=== PATIENT | female | born 1960 | race Caucasian/White ===

== ENCOUNTER → 2018-01-21 15:12 | Outpatient (CLI) | payer OTHER, SELFPAY | PROVIDERS: Family Provider Family Medicine; PCP Family Medicine; Visit Provider Family Medicine | DX: M85.852 Other specified disorders of bone density and structure, left thigh (principal); Z78.0 Asymptomatic menopausal state | CPT/HCPCS: 77080 ==

== ENCOUNTER 2018-12-29 08:15 | Outpatient (RCR) | payer OTHER, SELFPAY ==
--- NOTE | 2018-09-29 08:43 | PT.OIE ---
Current Diagnoses Stiffness of left hip, not elsewhere classified (09/29/18) Other bursitis of hip, left hip (09/29/18) Weakness (09/29/18) Past Medical History (Last Reviewed 06/25/18 @ 16:26 by Kelly Pabon MD) Hyperlipidemia (Chronic) TMJ dysfunction (Chronic) Colon polyps (Resolved 2010) Osteopenia (Resolved 01/21/18) Past Surgical History (Last Reviewed 06/25/18 @ 16:26 by Kelly Pabon MD) History of colonoscopy (Resolved 06/01/16) History of colonoscopy with polypectomy (Resolved 11/24/10) Status post dilation and curettage (Resolved 1978) Provider Visit Care Team Role Provider Type Kelly Pabon MD Attending Provider Physician Primary Care Provider Specialty: [facility] Address: [address] [place] [address] Email: [email or web address] Physical Therapy Initial Evaluation PT-OP-A Visit Information Start: 09/29/18 07:24 Freq: Status: Active Protocol: Document 09/29/18 07:29 [facility] (Rec: 09/29/18 08:15 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 (Rec: 09/29/18 08:15 [facility] [id number]) Current Condition History of Current Condition Onset Date fall Current Complaints L hip/thigh pain History of Current Condition Pt reports lat hip pain that comes and goes and sometimes catches in the morning and she can move her leg around to improve it. Started in fall/ winter. Reports she can feel it somtimes when walking/ running but doesn't really bother her. Pt reports in the beginning it was achey from hip to thigh and to sup knee. That doesn't happen as much. In the AM, its typically worse and gets better. Sometimes she gets catching when pulling leg up to put shoes on/off. No known cause d/t this. Pt has been swimming the past month instead of the last month. Less catching recently. Reports tenderness to touch. Prior Treatments and Tests none Treatment Goals Patient/Caregiver Goals Stop locking sensation PT-OP-C Subjective Start: 09/29/18 07:24 Freq: Status: Active Protocol: Document 09/29/18 07:29 [facility] (Rec: 09/29/18 08:15 [facility] [id number]) Patient Questionnaires Lower Extremity Functional Scale LEFS Score 79 OP-PT Pain Assessment Location R hip Pain Location Details R hip Intensity 7 Scale Used Numeric (1 - 10) Description- Other catching Frequency Intermittent Pain Duration seconds Radiating Location into thigh Other Pain Aggravating Factors lifting leg up/down, run/walk( sometimes feel it) Other Pain Alleviating Factors bend leg up/down PT-OP-F Manual Assessment Start: 09/29/18 07:24 Freq: Status: Active Protocol: Document 09/29/18 07:29 [facility] (Rec: 09/29/18 08:15 [facility] [id number]) Manual Assessments Soft Tissue Assessment Soft Tissue Mobility Assessment ITB & piriformis tight and tender. Greater trochanter tenderness Joint Mobility Assessment Joint Mobility Assessment equal iliac crests & greater trochanters PT-OP-L Special Tests Start: 09/29/18 07:24 Freq: Status: Active Protocol: Document 09/29/18 07:29 [facility] (Rec: 09/29/18 08:15 [facility] [id number]) Special Tests Hip Special Tests scour Test Results neg Slump Test Results neg SLR Test Results neg HS Test Results HS WNL Sushant Test Results mild tightness B obers Test Results mild tightness L PT-OP-M Strength Start: 09/29/18 07:24 Freq: Status: Active Protocol: Document 09/29/18 07:29 [facility] (Rec: 09/29/18 08:15 [facility] [id number]) Hip Strength Hip Manual Muscle Testing Left Flexion (L2) 5 Normal Extension (S1) 4 Good Abduction 4 Good Adduction 4+ Good+ External Rotation 5 Normal Internal Rotation 4 Good Comments pain with IR Right Flexion (L2) 5 Normal Extension (S1) 5 Normal Abduction 5 Normal Adduction 5 Normal External Rotation 5 Normal Internal Rotation 5 Normal Knee Strength Knee Manual Muscle Testing Right Flexion (S2) 5 Normal Extension (L3) 5 Normal Left Flexion (S2) 5 Normal Extension (L3) 5 Normal PT-OP-Q Treatments Start: 09/29/18 07:24 Freq: Status: Active Protocol: Document 09/29/18 07:29 [facility] (Rec: 09/29/18 08:15 [facility] [id number]) Therapeutic Exercises Supine Exercises rolling pin Supine Exercise Name ITB Side left iso hip flex Supine Exercise Name flex & diagonal Side bilateral Reps/Minutes 30 sec ITB stretch Supine Exercise Name w/towel Side left Reps/Minutes 30 sec sushant Supine Exercise Name stretch Side bilateral Reps/Minutes 30 sec piriformis Supine Exercise Name piriformis Side left Reps/Minutes 45 sec Standing Exercises quad Standing Exercise Name quad Side left Reps/Minutes 30 sec PT-OP-T Assessment and Plan Start: 09/29/18 07:24 Freq: Status: Active Protocol: Document 09/29/18 07:29 [facility] (Rec: 09/29/18 08:43 [facility] [id number]) Physical Therapy Assessment Rehab Potential Rehabilitation Potential Excellent Evaluation Complexity Number of Personal Factors/Comorbidities 1-2 Number of Body Systems Impaired 4 or More Clinical Presentation at Evaluation Stable Impairments Impairments Functional Activities Gait Pain Soft Tissue Mobility Strength Goals strength Short Term Goal (STG) Pt will be indep with HEP STG Duration 10/30/18 Assisted Goal (LTG) Pt will have 5/5 strength in BLEs allowing improvement in all daily activities. LTG Duration 11/29/18 pain Short Term Goal (STG) Pt will have no episodes of clicking for 2 weeks STG Duration 11/06/18 Broom Man Goal (LTG) Pt will report no pain/ discomfort in L hip with typical activities. LTG Duration 11/29/18 Assessment Summary Assessment Pt presents with L hip pain consistent with possible L hip bursititis & ITB tightness. She has mild flexibility limitations and dec core strength L>R. Pt is improving overall with symptoms, but would benefit from PT to dec catching and pain that occurs in hip and improve functional movement patterns for typical daily activities. Physical Therapy Plan Frequency and Duration Frequency of Treatment 1-2x/wk Duration of Treatment 2 months Plan of Care Start Date 09/29/18 Plan of Care End Date 11/29/18 Therapeutic Interventions Therapeutic Interventions Aquatic Therapy Balance Training Gait Training Home Exercise Program Joint Mobilizations Manual Therapy Patient/Caregiver Education Self-Care/Home Management Soft Tissue Mobilization Taping Therapeutic Activities Therapeutic Exercises Modalities Cold Pack/Ice Massage Electric Stimulation Hot Packs Ultrasound Next Visit Focus/Plan Next Note Type Treatment Note Next Visit Plan core activation, STM to glutes & ITB
--- NOTE | 2018-09-29 08:43 | PT.OPPOC ---
Current Diagnoses Stiffness of left hip, not elsewhere classified (09/29/18) Other bursitis of hip, left hip (09/29/18) Weakness (09/29/18) Provider Visit Care Team Role Provider Type Kelly Pabon MD Attending Provider Physician Primary Care Provider Specialty: [facility] Address: [address] [place] [address], [facility] Email: [email or web address] Plan Of Care PT-OP-T Assessment and Plan Start: 09/29/18 07:24 Freq: Status: Active Protocol: Document 09/29/18 07:29 [facility] (Rec: 09/29/18 08:43 [facility] [id number]) Physical Therapy Assessment Rehab Potential Rehabilitation Potential Excellent Evaluation Complexity Number of Personal Factors/Comorbidities 1-2 Number of Body Systems Impaired 4 or More Clinical Presentation at Evaluation Stable Impairments Impairments Functional Activities Gait Pain Soft Tissue Mobility Strength Goals strength Short Term Goal (STG) Pt will be indep with HEP STG Duration 10/30/18 Care Home Goal (LTG) Pt will have 5/5 strength in BLEs allowing improvement in all daily activities. LTG Duration 11/29/18 pain Short Term Goal (STG) Pt will have no episodes of clicking for 2 weeks STG Duration 11/06/18 Parking Lot Chauffeur Goal (LTG) Pt will report no pain/ discomfort in L hip with typical activities. LTG Duration 11/29/18 Assessment Summary Assessment Pt presents with L hip pain consistent with possible L hip bursititis & ITB tightness. She has mild flexibility limitations and dec core strength L>R. Pt is improving overall with symptoms, but would benefit from PT to dec catching and pain that occurs in hip and improve functional movement patterns for typical daily activities. Physical Therapy Plan Frequency and Duration Frequency of Treatment 1-2x/wk Duration of Treatment 2 months Plan of Care Start Date 09/29/18 Plan of Care End Date 11/29/18 Therapeutic Interventions Therapeutic Interventions Aquatic Therapy Balance Training Gait Training Home Exercise Program Joint Mobilizations Manual Therapy Patient/Caregiver Education Self-Care/Home Management Soft Tissue Mobilization Taping Therapeutic Activities Therapeutic Exercises Modalities Cold Pack/Ice Massage Electric Stimulation Hot Packs Ultrasound Next Visit Focus/Plan Next Note Type Treatment Note Next Visit Plan core activation, STM to glutes & ITB Plan of Care Dates Plan of Care Start Date 09/29/18 Plan of Care End Date 11/29/18 Please Sign and Return: I have reviewed this Plan of Care and certify that the skilled therapy services above are required to meet the patient?s needs. Physician Signature Date Printed Name and Credentials Clinical Instructor Signature Printed Name and Credentials
--- NOTE | 2018-10-03 14:09 | PT.OTN ---
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 Started in fall/ winter. Reports she can feel it somtimes when walking/ running but doesn't really bother her. Pt reports in the beginning it was achey from hip to thigh and to sup knee. That doesn't happen as much. In the AM, its typically worse and gets better. Sometimes she gets catching when pulling leg up to put shoes on/off. No known cause d/t this. Pt has been swimming the past month instead of the last month. Less catching recently. Reports tenderness to touch. Prior Treatments and Tests none Treatment Goals Patient/Caregiver Goals Stop locking sensation PT-OP-C Subjective Start: 09/29/18 07:24 Freq: Status: Active Protocol: Document 10/03/18 12:15 [facility] (Rec: 10/03/18 14:09 [facility] [id number]) OP-PT Subjective Patient Comments Patient Comments Pt reports compliance with stretches and exercises. Reports they made her sore in B hips. PT-OP-F Manual Assessment Start: 09/29/18 07:24 Freq: Status: Active Protocol: Document 09/29/18 07:29 [facility] (Rec: 09/29/18 08:15 [facility] [id number]) Manual Assessments Soft Tissue Assessment Soft Tissue Mobility Assessment ITB & piriformis tight and tender. Greater trochanter tenderness Joint Mobility Assessment Joint Mobility Assessment equal iliac crests & greater trochanters PT-OP-L Special Tests Start: 09/29/18 07:24 Freq: Status: Active Protocol: Document 09/29/18 07:29 [facility] (Rec: 09/29/18 08:15 [facility] [id number]) Special Tests Hip Special Tests scour Test Results neg Slump Test Results neg SLR Test Results neg HS Test Results HS WNL Sushant Test Results mild tightness B obers Test Results mild tightness L PT-OP-M Strength Start: 09/29/18 07:24 Freq: Status: Active Protocol: Document 09/29/18 07:29 [facility] (Rec: 09/29/18 08:15 [facility] [id number]) Hip Strength Hip Manual Muscle Testing Left Flexion (L2) 5 Normal Extension (S1) 4 Good Abduction 4 Good Adduction 4+ Good+ External Rotation 5 Normal Internal Rotation 4 Good Comments pain with IR Right Flexion (L2) 5 Normal Extension (S1) 5 Normal Abduction 5 Normal Adduction 5 Normal External Rotation 5 Normal Internal Rotation 5 Normal Knee Strength Knee Manual Muscle Testing Right Flexion (S2) 5 Normal Extension (L3) 5 Normal Left Flexion (S2) 5 Normal Extension (L3) 5 Normal PT-OP-Q Treatments Start: 09/29/18 07:24 Freq: Status: Active Protocol: Document 10/03/18 12:15 [facility] (Rec: 10/03/18 14:09 [facility] [id number]) Therapeutic Exercises Supine Exercises tennis ball Supine Exercise Name rolling out september Supine Exercise Name scissors Side bilateral Reps/Minutes 15 bridge w/march Supine Exercise Name bridge w/march Side bilateral Reps/Minutes 15 iso hip flex Supine Exercise Name flex & diagonal Side bilateral Reps/Minutes 30 sec ITB stretch Supine Exercise Name w/towel Side left Reps/Minutes 30 sec sushant Supine Exercise Name stretch Side bilateral Reps/Minutes 30 sec piriformis Supine Exercise Name piriformis Side left Reps/Minutes 45 sec Prone Exercises hip ER/IR Prone Exercise Name IR & ER Side left Equipment Used L1 Reps/Minutes 10 Manual Therapy Treatment Soft Tissue Mobilization piriformis Body Location piriformis Mobilization Type Rolling Intensity/Depth Moderate Joint Mobilizations innominate Joint innominate Direction FM fle hip Joint hip L Direction inf & hip on axis ER & IR FM PT-OP-T Assessment and Plan Start: 09/29/18 07:24 Freq: Status: Active Protocol: Document 10/03/18 12:15 [facility] (Rec: 10/03/18 14:09 [facility] [id number]) Physical Therapy Assessment Goals strength Short Term Goal (STG) Pt will be indep with HEP STG Duration 10/30/18 [facility] Goal (LTG) Pt will have 5/5 strength in BLEs allowing improvement in all daily activities. LTG Duration 11/29/18 pain Short Term Goal (STG) Pt will have no episodes of clicking for 2 weeks STG Duration 11/06/18 Unload Associate Goal (LTG) Pt will report no pain/ discomfort in L hip with typical activities. LTG Duration 11/29/18 Assessment Summary Assessment Pt able to do exercises with cueing. She had improved hip ROM with STM & mobilizations. Physical Therapy Plan Frequency and Duration Frequency of Treatment 1-2x/wk Duration of Treatment 2 months Plan of Care Start Date 09/29/18 Plan of Care End Date 11/29/18 Next Visit Focus/Plan Next Note Type Treatment Note Next Visit Plan ITB STM and advance hip strength
--- NOTE | 2018-10-09 09:49 | PT.OTN ---
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 Started in fall/ winter. Reports she can feel it somtimes when walking/ running but doesn't really bother her. Pt reports in the beginning it was achey from hip to thigh and to sup knee. That doesn't happen as much. In the AM, its typically worse and gets better. Sometimes she gets catching when pulling leg up to put shoes on/off. No known cause d/t this. Pt has been swimming the past month instead of the last month. Less catching recently. Reports tenderness to touch. Prior Treatments and Tests none Treatment Goals Patient/Caregiver Goals Stop locking sensation PT-OP-C Subjective Start: 09/29/18 07:24 Freq: Status: Active Protocol: Document 10/09/18 09:01 [facility] (Rec: 10/09/18 09:48 [facility] [id number]) OP-PT Subjective Patient Comments Patient Comments Pt reports 1 episode of catching in the shower in the past week PT-OP-F Manual Assessment Start: 09/29/18 07:24 Freq: Status: Active Protocol: Document 09/29/18 07:29 [facility] (Rec: 09/29/18 08:15 [facility] [id number]) Manual Assessments Soft Tissue Assessment Soft Tissue Mobility Assessment ITB & piriformis tight and tender. Greater trochanter tenderness Joint Mobility Assessment Joint Mobility Assessment equal iliac crests & greater trochanters PT-OP-L Special Tests Start: 09/29/18 07:24 Freq: Status: Active Protocol: Document 09/29/18 07:29 [facility] (Rec: 09/29/18 08:15 [facility] [id number]) Special Tests Hip Special Tests scour Test Results neg Slump Test Results neg SLR Test Results neg HS Test Results HS WNL Sushant Test Results mild tightness B obers Test Results mild tightness L PT-OP-M Strength Start: 09/29/18 07:24 Freq: Status: Active Protocol: Document 09/29/18 07:29 [facility] (Rec: 09/29/18 08:15 [facility] [id number]) Hip Strength Hip Manual Muscle Testing Left Flexion (L2) 5 Normal Extension (S1) 4 Good Abduction 4 Good Adduction 4+ Good+ External Rotation 5 Normal Internal Rotation 4 Good Comments pain with IR Right Flexion (L2) 5 Normal Extension (S1) 5 Normal Abduction 5 Normal Adduction 5 Normal External Rotation 5 Normal Internal Rotation 5 Normal Knee Strength Knee Manual Muscle Testing Right Flexion (S2) 5 Normal Extension (L3) 5 Normal Left Flexion (S2) 5 Normal Extension (L3) 5 Normal PT-OP-Q Treatments Start: 09/29/18 07:24 Freq: Status: Active Protocol: Document 10/09/18 09:01 [facility] (Rec: 10/09/18 09:48 [facility] [id number]) Therapeutic Exercises Prone Exercises hip ER/IR Prone Exercise Name IR & ER Side left Equipment Used L1 Reps/Minutes 10 Sidelying Exercises abd Sidelying Exercise Name vs wall Side left Reps/Minutes 10 Other Exercises quad hip ext Other Exercise Name hip ext Side bilateral Equipment Used no tband then L2 Reps/Minutes 10 ea Therapeutic Activity Therapeutic Activity sleeping Name sleeping position w/pillows & towels Comments supine & S/L Manual Therapy Treatment Soft Tissue Mobilization ITB Body Location ITB Mobilization Type Rolling Joint Mobilizations innominate Joint innominate Direction FM flex L hip Joint hip L Direction inf & hip on axis ER FM Comments w/neuro re edu in range PT-OP-T Assessment and Plan Start: 09/29/18 07:24 Freq: Status: Active Protocol: Document 10/09/18 09:01 [facility] (Rec: 10/09/18 09:48 [facility] [id number]) Physical Therapy Assessment Goals strength Short Term Goal (STG) Pt will be indep with HEP STG Duration 10/30/18 Detention Goal (LTG) Pt will have 5/5 strength in BLEs allowing improvement in all daily activities. LTG Duration 11/29/18 pain Short Term Goal (STG) Pt will have no episodes of clicking for 2 weeks STG Duration 11/06/18 Detention Goal (LTG) Pt will report no pain/ discomfort in L hip with typical activities. LTG Duration 11/29/18 Assessment Summary Assessment Improved hip gliding at start of session today which improved further with mobilization. Pt required cueing to maintain neutral pelvis with exercises today. Physical Therapy Plan Frequency and Duration Frequency of Treatment 1-2x/wk Duration of Treatment 2 months Plan of Care Start Date 09/29/18 Plan of Care End Date 11/29/18 Next Visit Focus/Plan Next Note Type Treatment Note Next Visit Plan ITB STM and advance hip strength
--- NOTE | 2018-10-21 14:56 | PT.OTN ---
Current Diagnoses Other bursitis of hip, left hip (10/21/18) Physical Therapy Treatment Note PT-OP-A Visit Information Start: 09/29/18 07:24 Freq: Status: Active Protocol: Document 10/21/18 13:51 [facility] (Rec: 10/21/18 14:55 [facility] [id number]) Out-Patient Physical Therapy Visit Information Visit Information Visit Type Treatment Note Visit Start Time 13:50 Visit Stop Time 14:30 Total Visit Minutes 40 Visit Number 4 Number of BINDING DYER Visits 0 PT-OP-B Current Condition Start: 09/29/18 07:24 Freq: Status: Active Protocol: Document 09/29/18 07:29 [facility] (Rec: 09/29/18 08:15 [facility] [id number]) Current Condition History of Current Condition Onset Date fall Current Complaints L hip/thigh pain History of Current Condition Pt reports lat hip pain that comes and goes and sometimes catches in the morning and she can move her leg around to improve it. Started in fall/ winter. Reports she can feel it somtimes when walking/ running but doesn't really bother her. Pt reports in the beginning it was achey from hip to thigh and to sup knee. That doesn't happen as much. In the AM, its typically worse and gets better. Sometimes she gets catching when pulling leg up to put shoes on/off. No known cause d/t this. Pt has been swimming the past month instead of the last month. Less catching recently. Reports tenderness to touch. Prior Treatments and Tests none Treatment Goals Patient/Caregiver Goals Stop locking sensation PT-OP-C Subjective Start: 09/29/18 07:24 Freq: Status: Active Protocol: Document 10/21/18 13:51 [facility] (Rec: 10/21/18 14:56 [facility] [id number]) OP-PT Subjective Patient Comments Patient Comments Pt did some exercises while away last week. Did not do IR/ ER d/t not wanting to lay on hotel floor. PT-OP-F Manual Assessment Start: 09/29/18 07:24 Freq: Status: Active Protocol: Document 09/29/18 07:29 [facility] (Rec: 09/29/18 08:15 [facility] [id number]) Manual Assessments Soft Tissue Assessment Soft Tissue Mobility Assessment ITB & piriformis tight and tender. Greater trochanter tenderness Joint Mobility Assessment Joint Mobility Assessment equal iliac crests & greater trochanters PT-OP-L Special Tests Start: 09/29/18 07:24 Freq: Status: Active Protocol: Document 09/29/18 07:29 [facility] (Rec: 09/29/18 08:15 [facility] [id number]) Special Tests Hip Special Tests scour Test Results neg Slump Test Results neg SLR Test Results neg HS Test Results HS WNL Sushant Test Results mild tightness B obers Test Results mild tightness L PT-OP-M Strength Start: 09/29/18 07:24 Freq: Status: Active Protocol: Document 09/29/18 07:29 [facility] (Rec: 09/29/18 08:15 [facility] [id number]) Hip Strength Hip Manual Muscle Testing Left Flexion (L2) 5 Normal Extension (S1) 4 Good Abduction 4 Good Adduction 4+ Good+ External Rotation 5 Normal Internal Rotation 4 Good Comments pain with IR Right Flexion (L2) 5 Normal Extension (S1) 5 Normal Abduction 5 Normal Adduction 5 Normal External Rotation 5 Normal Internal Rotation 5 Normal Knee Strength Knee Manual Muscle Testing Right Flexion (S2) 5 Normal Extension (L3) 5 Normal Left Flexion (S2) 5 Normal Extension (L3) 5 Normal PT-OP-Q Treatments Start: 09/29/18 07:24 Freq: Status: Active Protocol: Document 10/21/18 13:51 [facility] (Rec: 10/21/18 14:55 [facility] [id number]) Therapeutic Exercises Supine Exercises iso hip flex Supine Exercise Name flex & diagonal Side bilateral Reps/Minutes 30 sec Prone Exercises hip ER/IR Prone Exercise Name IR & ER Side left Equipment Used L1 Reps/Minutes 10 Sidelying Exercises abd Sidelying Exercise Name vs wall Side bilateral Reps/Minutes 15 Standing Exercises gait at wall Standing Exercise Name gait press Side bilateral Reps/Minutes 5 sec hold Other Exercises quad hip ext Other Exercise Name hip ext Side bilateral Equipment Used no tband then L2 Reps/Minutes 15 Manual Therapy Treatment Soft Tissue Mobilization TFL Body Location TFL Mobilization Type Rolling Sustained Pressure Intensity/Depth Moderate Body Position Sidelying ITB Body Location ITB Mobilization Type Rolling Intensity/Depth Moderate Body Position Sidelying Neuro Re-Education Treatment Other Activities core Details chop pattern for faciliation UE to LLE Comments into D1 flex PNF Details ant elevation/post dep Comments rhythmic initiation progressed to combination of isotonics in pelvis progressed to LEs PT-OP-T Assessment and Plan Start: 09/29/18 07:24 Freq: Status: Active Protocol: Document 10/21/18 13:51 [facility] (Rec: 10/21/18 14:55 [facility] [id number]) Physical Therapy Assessment Goals strength Short Term Goal (STG) Pt will be indep with HEP STG Duration 10/30/18 Dispute Specialist Goal (LTG) Pt will have 5/5 strength in BLEs allowing improvement in all daily activities. LTG Duration 11/29/18 pain Short Term Goal (STG) Pt will have no episodes of clicking for 2 weeks STG Duration 11/06/18 Skilled Nursing Goal (LTG) Pt will report no pain/ discomfort in L hip with typical activities. LTG Duration 11/29/18 Assessment Summary Assessment Pt had improved core response with chop pattern initiation and had difficulty with PNF post depression on L. Physical Therapy Plan Frequency and Duration Frequency of Treatment 1-2x/wk Duration of Treatment 2 months Plan of Care Start Date 09/29/18 Plan of Care End Date 11/29/18 Next Visit Focus/Plan Next Note Type Treatment Note Next Visit Plan ITB STM & PNF progression & core facilitation
--- NOTE | 2018-10-30 09:48 | PT.OTN ---
Current Diagnoses Other bursitis of hip, left hip (10/30/18) Physical Therapy Treatment Note PT-OP-A Visit Information Start: 09/29/18 07:24 Freq: Status: Active Protocol: Document 10/30/18 07:30 [facility] (Rec: 10/30/18 09:48 [facility] [id number]) Out-Patient Physical Therapy Visit Information Visit Information Visit Type Treatment Note Visit Start Time 07:30 Visit Stop Time 08:15 Total Visit Minutes 45 Visit Number 5 Number of AIR CONDITIONING SHEET METAL INSTALLER Visits 0 PT-OP-B Current Condition Start: 09/29/18 07:24 Freq: Status: Active Protocol: Document 09/29/18 07:29 [facility] (Rec: 09/29/18 08:15 [facility] [id number]) Current Condition History of Current Condition Onset Date fall Current Complaints L hip/thigh pain History of Current Condition Pt reports lat hip pain that comes and goes and sometimes catches in the morning and she can move her leg around to improve it. Started in fall/ winter. Reports she can feel it somtimes when walking/ running but doesn't really bother her. Pt reports in the beginning it was achey from hip to thigh and to sup knee. That doesn't happen as much. In the AM, its typically worse and gets better. Sometimes she gets catching when pulling leg up to put shoes on/off. No known cause d/t this. Pt has been swimming the past month instead of the last month. Less catching recently. Reports tenderness to touch. Prior Treatments and Tests none Treatment Goals Patient/Caregiver Goals Stop locking sensation PT-OP-C Subjective Start: 09/29/18 07:24 Freq: Status: Active Protocol: Document 10/30/18 07:30 [facility] (Rec: 10/30/18 09:48 [facility] [id number]) OP-PT Subjective Patient Comments Patient Comments Pt reports compliance with some exercises. Notes her leg felt weak walking out but within 5 min she felt good and had a really good weak with no pain or catches until yesterday when rai spicer. PT-OP-F Manual Assessment Start: 09/29/18 07:24 Freq: Status: Active Protocol: Document 09/29/18 07:29 [facility] (Rec: 09/29/18 08:15 [facility] [id number]) Manual Assessments Soft Tissue Assessment Soft Tissue Mobility Assessment ITB & piriformis tight and tender. Greater trochanter tenderness Joint Mobility Assessment Joint Mobility Assessment equal iliac crests & greater trochanters PT-OP-L Special Tests Start: 09/29/18 07:24 Freq: Status: Active Protocol: Document 09/29/18 07:29 [facility] (Rec: 09/29/18 08:15 [facility] [id number]) Special Tests Hip Special Tests scour Test Results neg Slump Test Results neg SLR Test Results neg HS Test Results HS WNL Sushant Test Results mild tightness B obers Test Results mild tightness L PT-OP-M Strength Start: 09/29/18 07:24 Freq: Status: Active Protocol: Document 09/29/18 07:29 [facility] (Rec: 09/29/18 08:15 [facility] [id number]) Hip Strength Hip Manual Muscle Testing Left Flexion (L2) 5 Normal Extension (S1) 4 Good Abduction 4 Good Adduction 4+ Good+ External Rotation 5 Normal Internal Rotation 4 Good Comments pain with IR Right Flexion (L2) 5 Normal Extension (S1) 5 Normal Abduction 5 Normal Adduction 5 Normal External Rotation 5 Normal Internal Rotation 5 Normal Knee Strength Knee Manual Muscle Testing Right Flexion (S2) 5 Normal Extension (L3) 5 Normal Left Flexion (S2) 5 Normal Extension (L3) 5 Normal PT-OP-Q Treatments Start: 09/29/18 07:24 Freq: Status: Active Protocol: Document 10/30/18 07:30 [facility] (Rec: 10/30/18 09:48 [facility] [id number]) Therapeutic Exercises Standing Exercises ITB stretch Standing Exercise Name at wall Side left Reps/Minutes 30 sec lunge Standing Exercise Name walking w/march Side bilateral Reps/Minutes 4x20ft sidestep squat Standing Exercise Name resisted Side bilateral Equipment Used lvl3 Reps/Minutes 20ft gait at wall Standing Exercise Name gait press Side bilateral Reps/Minutes 30 sec hold Comments w/hip hikes Manual Therapy Treatment Soft Tissue Mobilization TFL Body Location TFL Mobilization Type Rolling Sustained Pressure Intensity/Depth Moderate Body Position Sidelying ITB Body Location ITB Mobilization Type Rolling Intensity/Depth Moderate Body Position Sidelying PT-OP-T Assessment and Plan Start: 09/29/18 07:24 Freq: Status: Active Protocol: Document 10/30/18 07:30 [facility] (Rec: 10/30/18 09:48 [facility] [id number]) Physical Therapy Assessment Goals strength Short Term Goal (STG) Pt will be indep with HEP STG Duration 10/30/18 Popped Corn Oven Attendant Goal (LTG) Pt will have 5/5 strength in BLEs allowing improvement in all daily activities. LTG Duration 11/29/18 pain Short Term Goal (STG) Pt will have no episodes of clicking for 2 weeks STG Duration 11/06/18 Popped Corn Oven Attendant Goal (LTG) Pt will report no pain/ discomfort in L hip with typical activities. LTG Duration 11/29/18 Assessment Summary Assessment Pt required cueing for knee ext with hip ext during squats and lunges. Significant pelvic rotation with ambulation. Physical Therapy Plan Frequency and Duration Frequency of Treatment 1-2x/wk Duration of Treatment 2 months Plan of Care Start Date 09/29/18 Plan of Care End Date 11/29/18 Next Visit Focus/Plan Next Note Type Treatment Note Next Visit Plan ITB STM & PNF progression & core facilitation
--- NOTE | 2018-11-05 17:47 | PT.OTN ---
Current Diagnoses Other bursitis of hip, left hip (11/05/18) Physical Therapy Treatment Note PT-OP-A Visit Information Start: 09/29/18 07:24 Freq: Status: Active Protocol: Document 11/05/18 14:16 [facility] (Rec: 11/05/18 16:03 [facility] [id number]) Out-Patient Physical Therapy Visit Information Visit Information Visit Type Treatment Note Visit Start Time 15:25 Visit Stop Time 16:00 Total Visit Minutes 32 Visit Number 6 Number of DECORATING EQUIPMENT SETTER Visits 0 PT-OP-B Current Condition Start: 09/29/18 07:24 Freq: Status: Active Protocol: Document 09/29/18 07:29 [facility] (Rec: 09/29/18 08:15 [facility] [id number]) Current Condition History of Current Condition Onset Date fall Current Complaints L hip/thigh pain History of Current Condition Pt reports lat hip pain that comes and goes and sometimes catches in the morning and she can move her leg around to improve it. Started in fall/ winter. Reports she can feel it somtimes when walking/ running but doesn't really bother her. Pt reports in the beginning it was achey from hip to thigh and to sup knee. That doesn't happen as much. In the AM, its typically worse and gets better. Sometimes she gets catching when pulling leg up to put shoes on/off. No known cause d/t this. Pt has been swimming the past month instead of the last month. Less catching recently. Reports tenderness to touch. Prior Treatments and Tests none Treatment Goals Patient/Caregiver Goals Stop locking sensation PT-OP-C Subjective Start: 09/29/18 07:24 Freq: Status: Active Protocol: Document 11/05/18 14:16 [facility] (Rec: 11/05/18 17:45 [facility] [id number]) OP-PT Subjective Patient Comments Patient Comments Pt reports she has had only a couple instances of catching since last session. Her quads were very sore after last session. She did do lunges & squats PT-OP-F Manual Assessment Start: 09/29/18 07:24 Freq: Status: Active Protocol: Document 09/29/18 07:29 [facility] (Rec: 09/29/18 08:15 [facility] [id number]) Manual Assessments Soft Tissue Assessment Soft Tissue Mobility Assessment ITB & piriformis tight and tender. Greater trochanter tenderness Joint Mobility Assessment Joint Mobility Assessment equal iliac crests & greater trochanters PT-OP-L Special Tests Start: 09/29/18 07:24 Freq: Status: Active Protocol: Document 09/29/18 07:29 [facility] (Rec: 09/29/18 08:15 [facility] [id number]) Special Tests Hip Special Tests scour Test Results neg Slump Test Results neg SLR Test Results neg HS Test Results HS WNL Sushant Test Results mild tightness B obers Test Results mild tightness L PT-OP-M Strength Start: 09/29/18 07:24 Freq: Status: Active Protocol: Document 09/29/18 07:29 [facility] (Rec: 09/29/18 08:15 [facility] [id number]) Hip Strength Hip Manual Muscle Testing Left Flexion (L2) 5 Normal Extension (S1) 4 Good Abduction 4 Good Adduction 4+ Good+ External Rotation 5 Normal Internal Rotation 4 Good Comments pain with IR Right Flexion (L2) 5 Normal Extension (S1) 5 Normal Abduction 5 Normal Adduction 5 Normal External Rotation 5 Normal Internal Rotation 5 Normal Knee Strength Knee Manual Muscle Testing Right Flexion (S2) 5 Normal Extension (L3) 5 Normal Left Flexion (S2) 5 Normal Extension (L3) 5 Normal PT-OP-Q Treatments Start: 09/29/18 07:24 Freq: Status: Active Protocol: Document 11/05/18 14:16 [facility] (Rec: 11/05/18 17:45 [facility] [id number]) Therapeutic Exercises Standing Exercises lunge Standing Exercise Name walking w/march Side bilateral Reps/Minutes 4x20ft sidestep squat Standing Exercise Name resisted Side bilateral Equipment Used lvl3 Reps/Minutes 20ft gait at wall Standing Exercise Name gait press Side bilateral Reps/Minutes 30 sec hold Comments w/hip hikes Manual Therapy Treatment Soft Tissue Mobilization iliacus Body Location iliacus Mobilization Type Sustained Pressure TFL Body Location TFL Mobilization Type Rolling Sustained Pressure Intensity/Depth Moderate Body Position Sidelying ITB Body Location ITB Mobilization Type Rolling Intensity/Depth Moderate Body Position Sidelying PT-OP-T Assessment and Plan Start: 09/29/18 07:24 Freq: Status: Active Protocol: Document 11/05/18 14:16 [facility] (Rec: 11/05/18 16:03 [facility] [id number]) Physical Therapy Assessment Goals strength Short Term Goal (STG) Pt will be indep with HEP STG Duration 10/30/18 Configuration Manager Goal (LTG) Pt will have 5/5 strength in BLEs allowing improvement in all daily activities. LTG Duration 11/29/18 pain Short Term Goal (STG) Pt will have no episodes of clicking for 2 weeks STG Duration 11/06/18 Configuration Manager Goal (LTG) Pt will report no pain/ discomfort in L hip with typical activities. LTG Duration 11/29/18 Assessment Summary Assessment Pt is improving with her form with WB exercises, but did require min cueing for form & body position. She reports feeling tight after session but did a quad stretch and it relieved the soreness sensation in her hip. Physical Therapy Plan Frequency and Duration Frequency of Treatment 1-2x/wk Duration of Treatment 2 months Plan of Care Start Date 09/29/18 Plan of Care End Date 11/29/18 Next Visit Focus/Plan Next Note Type Treatment Note Next Visit Plan assess strength deficits
--- NOTE | 2018-11-19 17:40 | PT.OTN ---
Current Diagnoses Other bursitis of hip, left hip (11/19/18) Physical Therapy Treatment Note PT-OP-A Visit Information Start: 09/29/18 07:24 Freq: Status: Active Protocol: Document 11/05/18 14:16 [facility] (Rec: 11/05/18 16:03 [facility] [id number]) Out-Patient Physical Therapy Visit Information Visit Information Visit Type Treatment Note Visit Start Time 15:25 Visit Stop Time 16:00 Total Visit Minutes 32 Visit Number 6 Number of ELECTRONICS RESEARCH ENGINEER Visits 0 PT-OP-B Current Condition Start: 09/29/18 07:24 Freq: Status: Active Protocol: Document 09/29/18 07:29 [facility] (Rec: 09/29/18 08:15 [facility] [id number]) Current Condition History of Current Condition Onset Date fall Current Complaints L hip/thigh pain History of Current Condition Pt reports lat hip pain that comes and goes and sometimes catches in the morning and she can move her leg around to improve it. Started in fall/ winter. Reports she can feel it somtimes when walking/ running but doesn't really bother her. Pt reports in the beginning it was achey from hip to thigh and to sup knee. That doesn't happen as much. In the AM, its typically worse and gets better. Sometimes she gets catching when pulling leg up to put shoes on/off. No known cause d/t this. Pt has been swimming the past month instead of the last month. Less catching recently. Reports tenderness to touch. Prior Treatments and Tests none Treatment Goals Patient/Caregiver Goals Stop locking sensation PT-OP-C Subjective Start: 09/29/18 07:24 Freq: Status: Active Protocol: Document 11/05/18 14:16 [facility] (Rec: 11/05/18 17:45 [facility] [id number]) OP-PT Subjective Patient Comments Patient Comments Pt reports she has had only a couple instances of catching since last session. Her quads were very sore after last session. She did do lunges & squats PT-OP-F Manual Assessment Start: 09/29/18 07:24 Freq: Status: Active Protocol: Document 09/29/18 07:29 [facility] (Rec: 09/29/18 08:15 [facility] [id number]) Manual Assessments Soft Tissue Assessment Soft Tissue Mobility Assessment ITB & piriformis tight and tender. Greater trochanter tenderness Joint Mobility Assessment Joint Mobility Assessment equal iliac crests & greater trochanters PT-OP-L Special Tests Start: 09/29/18 07:24 Freq: Status: Active Protocol: Document 09/29/18 07:29 [facility] (Rec: 09/29/18 08:15 [facility] [id number]) Special Tests Hip Special Tests scour Test Results neg Slump Test Results neg SLR Test Results neg HS Test Results HS WNL Sushant Test Results mild tightness B obers Test Results mild tightness L PT-OP-M Strength Start: 09/29/18 07:24 Freq: Status: Active Protocol: Document 11/19/18 15:17 [facility] (Rec: 11/19/18 17:33 [facility] [id number]) Hip Strength Hip Manual Muscle Testing Left Flexion (L2) 4+ Good+ Extension (S1) 4+ Good+ Abduction 4+ Good+ External Rotation 4+ Good+ Internal Rotation 5 Normal PT-OP-Q Treatments Start: 09/29/18 07:24 Freq: Status: Active Protocol: Document 11/19/18 15:17 [facility] (Rec: 11/19/18 17:33 [facility] [id number]) Therapeutic Exercises Prone Exercises hip ext Prone Exercise Name alt Side bilateral Reps/Minutes 2x10 Sidelying Exercises abd Sidelying Exercise Name vs wall Side bilateral Reps/Minutes 15 Standing Exercises hip hinge Standing Exercise Name hip hinge Side bilateral Comments w/ruler on back squat Standing Exercise Name focus on form Reps/Minutes 30 sidestep squat Standing Exercise Name resisted Side bilateral Equipment Used lvl3 Reps/Minutes 20ft Manual Therapy Treatment Soft Tissue Mobilization TFL Body Location TFL Mobilization Type Rolling Sustained Pressure Intensity/Depth Moderate Body Position Sidelying ITB Body Location ITB Mobilization Type Rolling Intensity/Depth Moderate Body Position Sidelying PT-OP-T Assessment and Plan Start: 09/29/18 07:24 Freq: Status: Active Protocol: Document 11/19/18 15:17 [facility] (Rec: 11/19/18 17:33 [facility] [id number]) Physical Therapy Assessment Goals strength Short Term Goal (STG) Pt will be indep with HEP STG Duration achieved progressing as tolerated Skilled Nursing Goal (LTG) Pt will have 5/5 strength in BLEs allowing improvement in all daily activities. LTG Duration 12/30/18-good improvement w/ strength pain Short Term Goal (STG) Pt will have no episodes of clicking for 2 weeks STG Duration 01/06/19-improving Marble Cutter Goal (LTG) Pt will report no pain/ discomfort in L hip with typical activities. LTG Duration achieved Assessment Summary Assessment Pt cont to improve with strength but reuqired cueing for posture with squatting exercises. She had difficulty with maintaining neutral lumbar spine and cont to have core and LLE strength deficits . Physical Therapy Plan Frequency and Duration Frequency of Treatment 1-2x/wk Duration of Treatment 2 months Plan of Care Start Date 11/19/18 Plan of Care End Date 01/19/19 Therapeutic Interventions Therapeutic Interventions Aquatic Therapy Balance Training Gait Training Home Exercise Program Joint Mobilizations Manual Therapy Neuromuscular Re-education Self-Care/Home Management Soft Tissue Mobilization Taping Therapeutic Activities Therapeutic Exercises Modalities Cold Pack/Ice Massage Electric Stimulation Hot Packs Infrared Therapy Iontophoresis Traction- Mechanical Ultrasound Next Visit Focus/Plan Next Note Type Treatment Note Next Visit Plan advance core as tolerated
--- NOTE | 2018-11-19 17:40 | PT.OPPOC ---
Current Diagnoses Other bursitis of hip, left hip (11/19/18) Provider Visit Care Team Role Provider Type Kelly Pabon MD Attending Provider Physician Primary Care Provider Specialty: Family Practice Address: [address] [place] [address], [id number] Email: [email or web address] Plan Of Care PT-OP-T Assessment and Plan Start: 09/29/18 07:24 Freq: Status: Active Protocol: Document 11/19/18 15:17 [facility] (Rec: 11/19/18 17:33 [facility] [id number]) Physical Therapy Assessment Goals strength Short Term Goal (STG) Pt will be indep with HEP STG Duration achieved progressing as tolerated Harness Repairer Goal (LTG) Pt will have 5/5 strength in BLEs allowing improvement in all daily activities. LTG Duration 12/30/18-good improvement w/ strength pain Short Term Goal (STG) Pt will have no episodes of clicking for 2 weeks STG Duration 01/06/19-improving Harness Repairer Goal (LTG) Pt will report no pain/ discomfort in L hip with typical activities. LTG Duration achieved Assessment Summary Assessment Pt cont to improve with strength but reuqired cueing for posture with squatting exercises. She had difficulty with maintaining neutral lumbar spine and cont to have core and LLE strength deficits . Physical Therapy Plan Frequency and Duration Frequency of Treatment 1-2x/wk Duration of Treatment 2 months Plan of Care Start Date 11/19/18 Plan of Care End Date 01/19/19 Therapeutic Interventions Therapeutic Interventions Aquatic Therapy Balance Training Gait Training Home Exercise Program Joint Mobilizations Manual Therapy Neuromuscular Re-education Self-Care/Home Management Soft Tissue Mobilization Taping Therapeutic Activities Therapeutic Exercises Modalities Cold Pack/Ice Massage Electric Stimulation Hot Packs Infrared Therapy Iontophoresis Traction- Mechanical Ultrasound Next Visit Focus/Plan Next Note Type Treatment Note Next Visit Plan advance core as tolerated Plan of Care Dates Plan of Care Start Date 11/19/18 Plan of Care End Date 01/19/19 Please Sign and Return: I have reviewed this Plan of Care and certify that the skilled therapy services above are required to meet the patient?s needs. Physician Signature Date Printed Name and Credentials Clinical Instructor Signature Printed Name and Credentials
--- NOTE | 2018-12-17 19:08 | PT.OTN ---
Current Diagnoses Other bursitis of hip, left hip (12/17/18) Physical Therapy Treatment Note PT-OP-A Visit Information Start: 09/29/18 07:24 Freq: Status: Active Protocol: Document 12/17/18 19:03 [facility] (Rec: 12/17/18 19:08 [facility] [id number]) Out-Patient Physical Therapy Visit Information Visit Information Visit Type Treatment Note Visit Start Time 15:15 Visit Stop Time 16:00 Total Visit Minutes 45 Visit Number 7 Number of HOSTED SERVICES ANALYST Visits 0 PT-OP-B Current Condition Start: 09/29/18 07:24 Freq: Status: Active Protocol: Document 09/29/18 07:29 [facility] (Rec: 09/29/18 08:15 [facility] [id number]) Current Condition History of Current Condition Onset Date fall Current Complaints L hip/thigh pain History of Current Condition Pt reports lat hip pain that comes and goes and sometimes catches in the morning and she can move her leg around to improve it. Started in fall/ winter. Reports she can feel it somtimes when walking/ running but doesn't really bother her. Pt reports in the beginning it was achey from hip to thigh and to sup knee. That doesn't happen as much. In the AM, its typically worse and gets better. Sometimes she gets catching when pulling leg up to put shoes on/off. No known cause d/t this. Pt has been swimming the past month instead of the last month. Less catching recently. Reports tenderness to touch. Prior Treatments and Tests none Treatment Goals Patient/Caregiver Goals Stop locking sensation PT-OP-C Subjective Start: 09/29/18 07:24 Freq: Status: Active Protocol: Document 12/17/18 19:03 [facility] (Rec: 12/17/18 19:08 [facility] [id number]) OP-PT Subjective Patient Comments Patient Comments Pt reports only occasional catching PT-OP-F Manual Assessment Start: 09/29/18 07:24 Freq: Status: Active Protocol: Document 09/29/18 07:29 [facility] (Rec: 09/29/18 08:15 [facility] [id number]) Manual Assessments Soft Tissue Assessment Soft Tissue Mobility Assessment ITB & piriformis tight and tender. Greater trochanter tenderness Joint Mobility Assessment Joint Mobility Assessment equal iliac crests & greater trochanters PT-OP-L Special Tests Start: 09/29/18 07:24 Freq: Status: Active Protocol: Document 09/29/18 07:29 [facility] (Rec: 09/29/18 08:15 [facility] [id number]) Special Tests Hip Special Tests scour Test Results neg Slump Test Results neg SLR Test Results neg HS Test Results HS WNL Sushant Test Results mild tightness B obers Test Results mild tightness L PT-OP-M Strength Start: 09/29/18 07:24 Freq: Status: Active Protocol: Document 11/19/18 15:17 [facility] (Rec: 11/19/18 17:33 [facility] [id number]) Hip Strength Hip Manual Muscle Testing Left Flexion (L2) 4+ Good+ Extension (S1) 4+ Good+ Abduction 4+ Good+ External Rotation 4+ Good+ Internal Rotation 5 Normal PT-OP-Q Treatments Start: 09/29/18 07:24 Freq: Status: Active Protocol: Document 12/17/18 19:03 [facility] (Rec: 12/17/18 19:08 [facility] [id number]) Therapeutic Exercises Prone Exercises plank Prone Exercise Name on hand & feet & forearm & feet w/alt hip ext Side bilateral Reps/Minutes 15 ea Sidelying Exercises plank Sidelying Exercise Name side Side bilateral Reps/Minutes 30 sec ea Comments on knees then on feet Standing Exercises quad Standing Exercise Name stretch Side left Manual Therapy Treatment Soft Tissue Mobilization iliacus Body Location iliacus &inguinal ligament Mobilization Type Sustained Pressure ITB Body Location ITB Mobilization Type Rolling Intensity/Depth Moderate Body Position Sidelying piriformis Body Location piriformis Mobilization Type Sustained Pressure Body Position Prone Joint Mobilizations hip Joint hip Direction on axis ER FM PT-OP-T Assessment and Plan Start: 09/29/18 07:24 Freq: Status: Active Protocol: Document 12/17/18 19:03 [facility] (Rec: 12/17/18 19:08 [facility] [id number]) Physical Therapy Assessment Goals strength Short Term Goal (STG) Pt will be indep with HEP STG Duration achieved progressing as tolerated Index Clerk Goal (LTG) Pt will have 5/5 strength in BLEs allowing improvement in all daily activities. LTG Duration 12/30/18-good improvement w/ strength pain Short Term Goal (STG) Pt will have no episodes of clicking for 2 weeks STG Duration 01/06/19-improving Index Clerk Goal (LTG) Pt will report no pain/ discomfort in L hip with typical activities. LTG Duration achieved Assessment Summary Assessment Pt had difficulty with side plank exercise. She cont to improve with ability to do strengthening exercises. She had improved hip abd w/cueing for core activation. 1 catch occured when changing position but pain did not last. Physical Therapy Plan Frequency and Duration Frequency of Treatment 1-2x/wk Duration of Treatment 2 months Plan of Care Start Date 11/19/18 Plan of Care End Date 01/19/19 Next Visit Focus/Plan Next Note Type Discharge Summary Next Visit Plan advance core as tolerated; wrap up HEP
--- NOTE | 2018-12-29 08:58 | PT.OTN ---
Current Diagnoses Other bursitis of hip, left hip (12/29/18) Physical Therapy Treatment Note PT-OP-A Visit Information Start: 09/29/18 07:24 Freq: Status: Active Protocol: Document 12/29/18 08:15 [facility] (Rec: 12/29/18 08:57 [facility] [id number]) Out-Patient Physical Therapy Visit Information Visit Information Visit Type Discharge Summary Visit Start Time 08:15 Visit Stop Time 08:55 Total Visit Minutes 40 Visit Number 8 Number of BROTH SETTER Visits 0 PT-OP-B Current Condition Start: 09/29/18 07:24 Freq: Status: Active Protocol: Document 09/29/18 07:29 [facility] (Rec: 09/29/18 08:15 [facility] [id number]) Current Condition History of Current Condition Onset Date fall Current Complaints L hip/thigh pain History of Current Condition Pt reports lat hip pain that comes and goes and sometimes catches in the morning and she can move her leg around to improve it. Started in fall/ winter. Reports she can feel it somtimes when walking/ running but doesn't really bother her. Pt reports in the beginning it was achey from hip to thigh and to sup knee. That doesn't happen as much. In the AM, its typically worse and gets better. Sometimes she gets catching when pulling leg up to put shoes on/off. No known cause d/t this. Pt has been swimming the past month instead of the last month. Less catching recently. Reports tenderness to touch. Prior Treatments and Tests none Treatment Goals Patient/Caregiver Goals Stop locking sensation PT-OP-C Subjective Start: 09/29/18 07:24 Freq: Status: Active Protocol: Document 12/29/18 08:15 [facility] (Rec: 12/29/18 08:57 [facility] [id number]) OP-PT Subjective Patient Comments Patient Comments Pt feels good with dc today PT-OP-F Manual Assessment Start: 09/29/18 07:24 Freq: Status: Active Protocol: Document 09/29/18 07:29 [facility] (Rec: 09/29/18 08:15 [facility] [id number]) Manual Assessments Soft Tissue Assessment Soft Tissue Mobility Assessment ITB & piriformis tight and tender. Greater trochanter tenderness Joint Mobility Assessment Joint Mobility Assessment equal iliac crests & greater trochanters PT-OP-L Special Tests Start: 09/29/18 07:24 Freq: Status: Active Protocol: Document 09/29/18 07:29 [facility] (Rec: 09/29/18 08:15 [facility] [id number]) Special Tests Hip Special Tests scour Test Results neg Slump Test Results neg SLR Test Results neg HS Test Results HS WNL Sushant Test Results mild tightness B obers Test Results mild tightness L PT-OP-M Strength Start: 09/29/18 07:24 Freq: Status: Active Protocol: Document 12/29/18 08:15 [facility] (Rec: 12/29/18 08:57 [facility] [id number]) Hip Strength Hip Manual Muscle Testing Left Flexion (L2) 4+ Good+ Extension (S1) 5 Normal Abduction 4+ Good+ Adduction 5 Normal External Rotation 5 Normal Internal Rotation 5 Normal Right Flexion (L2) 4+ Good+ Extension (S1) 5 Normal Abduction 5 Normal Adduction 5 Normal External Rotation 5 Normal Internal Rotation 5 Normal PT-OP-Q Treatments Start: 09/29/18 07:24 Freq: Status: Active Protocol: Document 12/29/18 08:15 [facility] (Rec: 12/29/18 08:57 [facility] [id number]) Therapeutic Exercises Supine Exercises march Supine Exercise Name dying bug Side bilateral Reps/Minutes 15 iso hip flex Supine Exercise Name flex &diagnoal Side bilateral Reps/Minutes 45sec ea Prone Exercises plank Prone Exercise Name on hand & feet & forearm & feet w/alt hip ext Side bilateral Reps/Minutes 15 ea & 30 sec hold Sidelying Exercises plank Sidelying Exercise Name side Side bilateral Reps/Minutes 30 sec ea abd Sidelying Exercise Name vs wall Side left Reps/Minutes 15 Standing Exercises sidestep squat Standing Exercise Name resisted Side bilateral Equipment Used lvl3 Reps/Minutes 20ft Manual Therapy Treatment Soft Tissue Mobilization TFL Body Location TFL Mobilization Type Rolling Sustained Pressure Intensity/Depth Moderate Body Position Sidelying ITB Body Location ITB Mobilization Type Rolling Intensity/Depth Moderate Body Position Sidelying PT-OP-T Assessment and Plan Start: 09/29/18 07:24 Freq: Status: Active Protocol: Document 12/29/18 08:15 [facility] (Rec: 12/29/18 08:57 [facility] [id number]) Physical Therapy Assessment Goals strength Short Term Goal (STG) Pt will be indep with HEP STG Duration achieved progressing as tolerated Chcf Goal (LTG) Pt will have 5/5 strength in BLEs allowing improvement in all daily activities. LTG Duration 12/30/18-good improvement w/ strength pain Short Term Goal (STG) Pt will have no episodes of clicking for 2 weeks STG Duration 01/06/19-improving Chcf Goal (LTG) Pt will report no pain/ discomfort in L hip with typical activities. LTG Duration achieved Assessment Summary Assessment Pt has limited episodes of clicking and is able to relieve the sensation by stretching. She has improved with posture, strength and actvitiy tolerance with PT. She is cont with HEP to address cont mm slight weaknesses. Physical Therapy Plan Discharge Physical Therapy Discharge Reasons Plateau in Progress
--- NOTE | 2018-12-29 08:58 | PT.OPDS ---
Current Diagnoses Other bursitis of hip, left hip (12/29/18) Provider Visit Care Team Role Provider Type Kelly Pabon MD Attending Provider Physician Primary Care Provider Specialty: Family Practice Address: [address] [place] [address], [facility] Email: [email or web address] Visit Number Visit Number 8 Discharge Summary PT-OP-B Current Condition Start: 09/29/18 07:24 Freq: Status: Active Protocol: Document 09/29/18 07:29 [facility] (Rec: 09/29/18 08:15 [facility] [id number]) Current Condition History of Current Condition Onset Date fall Current Complaints L hip/thigh pain History of Current Condition Pt reports lat hip pain that comes and goes and sometimes catches in the morning and she can move her leg around to improve it. Started in fall/ winter. Reports she can feel it somtimes when walking/ running but doesn't really bother her. Pt reports in the beginning it was achey from hip to thigh and to sup knee. That doesn't happen as much. In the AM, its typically worse and gets better. Sometimes she gets catching when pulling leg up to put shoes on/off. No known cause d/t this. Pt has been swimming the past month instead of the last month. Less catching recently. Reports tenderness to touch. Prior Treatments and Tests none Treatment Goals Patient/Caregiver Goals Stop locking sensation PT-OP-C Subjective Start: 09/29/18 07:24 Freq: Status: Active Protocol: Document 12/29/18 08:15 [facility] (Rec: 12/29/18 08:57 [facility] [id number]) OP-PT Subjective Patient Comments Patient Comments Pt feels good with dc today PT-OP-F Manual Assessment Start: 09/29/18 07:24 Freq: Status: Active Protocol: Document 09/29/18 07:29 [facility] (Rec: 09/29/18 08:15 [facility] [id number]) Manual Assessments Soft Tissue Assessment Soft Tissue Mobility Assessment ITB & piriformis tight and tender. Greater trochanter tenderness Joint Mobility Assessment Joint Mobility Assessment equal iliac crests & greater trochanters PT-OP-L Special Tests Start: 09/29/18 07:24 Freq: Status: Active Protocol: Document 09/29/18 07:29 [facility] (Rec: 09/29/18 08:15 [facility] [id number]) Special Tests Hip Special Tests scour Test Results neg Slump Test Results neg SLR Test Results neg HS Test Results HS WNL Sushant Test Results mild tightness B obers Test Results mild tightness L PT-OP-M Strength Start: 09/29/18 07:24 Freq: Status: Active Protocol: Document 12/29/18 08:15 [facility] (Rec: 12/29/18 08:57 [facility] [id number]) Hip Strength Hip Manual Muscle Testing Left Flexion (L2) 4+ Good+ Extension (S1) 5 Normal Abduction 4+ Good+ Adduction 5 Normal External Rotation 5 Normal Internal Rotation 5 Normal Right Flexion (L2) 4+ Good+ Extension (S1) 5 Normal Abduction 5 Normal Adduction 5 Normal External Rotation 5 Normal Internal Rotation 5 Normal PT-OP-T Assessment and Plan Start: 09/29/18 07:24 Freq: Status: Active Protocol: Document 12/29/18 08:15 [facility] (Rec: 12/29/18 08:57 [facility] [id number]) Physical Therapy Assessment Goals strength Short Term Goal (STG) Pt will be indep with HEP STG Duration achieved progressing as tolerated Sap Business Intelligence Consultant Goal (LTG) Pt will have 5/5 strength in BLEs allowing improvement in all daily activities. LTG Duration 12/30/18-good improvement w/ strength pain Short Term Goal (STG) Pt will have no episodes of clicking for 2 weeks STG Duration 01/06/19-improving Senior Living Goal (LTG) Pt will report no pain/ discomfort in L hip with typical activities. LTG Duration achieved Assessment Summary Assessment Pt has limited episodes of clicking and is able to relieve the sensation by stretching. She has improved with posture, strength and actvitiy tolerance with PT. She is cont with HEP to address cont mm slight weaknesses. Physical Therapy Plan Discharge Physical Therapy Discharge Reasons Plateau in Progress
== END 2019-01-16 12:06 | disposition home or self-care (01) ==
LOC: PHYS 08:15
PROVIDERS: PCP Family Medicine; Visit Provider Family Medicine
DX: M70.72 Other bursitis of hip, left hip (principal)
CPT/HCPCS: 97110; 97112; 97140; 97161

== ENCOUNTER → 2019-01-07 07:58 | Outpatient (CLI) | payer OTHER, SELFPAY ==
[2019-01-07 09:24] LABS: Cholesterol 250 mg/dL (140-199); Glucose 94 mg/dL (70-100); HDL Cholesterol 97 mg/dL (40-60); LDL Cholesterol Calculated 134 mg/dL (<100); Triglycerides 93 mg/dL (35-150)
== END ==
PROVIDERS: PCP Family Medicine; Visit Provider Family Medicine
DX: Z13.220 Encounter for screening for lipoid disorders (principal); Z13.1 Encounter for screening for diabetes mellitus
CPT/HCPCS: 36415; 80061; 82947

== ENCOUNTER → 2020-10-21 12:27 | Outpatient (CLI) | payer OTHER, SELFPAY ==
[2020-10-21] MEDS: COVID-19 VACC #1, MRNA(MOD) 100 MCG/0.5 ML VIAL IM (12:31)
== END ==
PROVIDERS: PCP Family Medicine; Visit Provider Internal Medicine
DX: Z23 Encounter for immunization (principal)
CPT/HCPCS: 0011A; 91301

== ENCOUNTER → 2020-11-23 12:04 | Outpatient (CLI) | payer OTHER, SELFPAY ==
[2020-11-23] MEDS: COVID-19 VACC #2, MRNA(MOD) 100 MCG/0.5 ML VIAL IM (12:13)
== END ==
PROVIDERS: PCP Family Medicine; Visit Provider Internal Medicine
DX: Z23 Encounter for immunization (principal)
CPT/HCPCS: 0012A; 91301

== ENCOUNTER → 2020-12-09 08:11 | Outpatient (CLI) | payer OTHER, SELFPAY ==
[2020-12-09 09:41] LABS: Cholesterol 255 mg/dL (140-199); Glucose 98 mg/dL (80-110); HDL Cholesterol 95 mg/dL (40-60); LDL Cholesterol Calculated 145 mg/dL (<100); Triglycerides 74 mg/dL (35-150)
== END ==
PROVIDERS: PCP Family Medicine; Referring Provider Family Medicine; Visit Provider Family Medicine
DX: Z13.1 Encounter for screening for diabetes mellitus (principal); Z13.220 Encounter for screening for lipoid disorders
CPT/HCPCS: 36415; 80061; 82947

== ENCOUNTER → 2022-03-08 08:02 | Outpatient (CLI) | payer OTHER, SELFPAY ==
--- NOTE | 2022-03-08 08:04 | DI.RAD.S_ITS ---
PROCEDURE: XR CHEST 2V INDICATIONS: chest pain upper left side TECHNIQUE: 2 views of the chest were acquired. COMPARISON: [facility], , CHEST 2 VIEW, 07/30/2008, 16:06. FINDINGS: Surgical changes and devices: None. Lungs and pleura: Lungs are clear. No pleural effusions or pneumothorax. Mediastinum: Mediastinal contours are unchanged. Heart size is normal. Bones and chest wall: No suspicious bony abnormalities. Soft tissues appear unremarkable. IMPRESSION: No acute cardiopulmonary abnormality. Dictated by: Charly Vivar M.D. on 03/08/2022 at 9:16 Approved by: Charly Vivar M.D. on 03/08/2022 at 9:17
[2022-03-08 09:18] LABS: Add Manual Diff / Slide Review NO; Basophils Absolute Auto 0 /uL (0-100); Basophils Percent Auto 1.2 % (0-2); Eosinophils Absolute Auto 100 /uL (0-450); Eosinophils Percent Auto 2.3 % (2-4); Hematocrit 41.8 % (36-46); Hemoglobin 14.4 g/dL (12.0-16.0); Lymphocytes Absolute Auto 1300 /uL (1100-4500); Lymphocytes Percent Auto 34.5 % (25-40); Mean Corpuscular HGB Conc 34.5 % (30-36); Mean Corpuscular Volume 95.6 fL (80-100); Monocytes Absolute Auto 300 /uL (0-900); Monocytes Percent Auto 7.4 % (3-14); Neutrophils Absolute Auto 2000 /uL (1500-7000); Neutrophils Percent Auto 54.6 % (50-75); Platelet Count 289 X10^3/uL (150-400); Red Blood Cell Count 4.37 X10^6/uL (4.0-5.2); Red Cell Distribution Width 13.5 % (11.6-14.8); White Blood Cell Count 3.7 X10^3/uL (4.5-11.0)
[2022-03-08 09:41] LABS: Alanine Aminotransferase 15 IU/L (<35); Albumin 4.1 g/dL (3.5-5.0); Albumin Globulin Ratio 1.6 (1.0-2.8); Alkaline Phosphatase 62 U/L (38-126); Aspartate Aminotransferase 21 IU/L (14-36); Bilirubin Total 0.5 mg/dL (0.2-1.3); Blood Urea Nitrogen 13 mg/dL (7-17); Calcium 9.3 mg/dL (8.4-10.2); Carbon Dioxide 28 mmol/L (22-32); Chloride 102 mmol/L (98-107); Cholesterol 230 mg/dL (140-199); Estimated Glomerular Filt Rate > 60 mL/min (>60); Globulin 2.5 g/dL (1.7-4.1); Glucose 97 mg/dL (80-110); HDL Cholesterol 82 mg/dL (40-60); HEMOLYSIS < 15 (0-50); LDL Cholesterol Calculated 133 mg/dL (<100); Potassium 4.4 mmol/L (3.4-5.1); Sodium 137 mmol/L (137-145); Total Protein 6.6 g/dL (6.3-8.2); Triglycerides 77 mg/dL (35-150)
[2022-03-08 10:10] LABS: TSH w/ Reflex to FT4 2.56 uIU/mL (0.47-4.68)
== END ==
PROVIDERS: PCP Family Medicine; Referring Provider Physician Assistant; Visit Provider Physician Assistant
DX: R07.9 Chest pain, unspecified (principal); E78.5 Hyperlipidemia, unspecified
CPT/HCPCS: 36415; 71046; 80053; 80061; 84443; 85025

== ENCOUNTER 2022-07-25 13:45 | Outpatient (RCR) | payer OTHER, SELFPAY ==
--- NOTE | 2022-03-13 19:25 | PT.OIE ---
Current Diagnoses Radiculopathy, site unspecified (03/13/22) Low back pain, unspecified (03/13/22) Past Medical History (Last Reviewed 03/27/19 @ 18:24 by Virgil Barber MD) Colon polyps (2010) Hyperlipidemia Osteopenia (01/21/18) TMJ dysfunction Past Surgical History (Last Reviewed 03/27/19 @ 18:24 by Virgil Barber MD) History of colonoscopy (06/01/16) History of colonoscopy with polypectomy (11/24/10) Status post dilation and curettage (1978) Visit Care Team Role Provider Type Kelly Pabon MD Attending Provider Physician Primary Care Provider Referring Provider Specialty: [facility] Address: [address] [place] [address], [facility] Email: [email or web address] Physical Therapy Initial Evaluation PT-OP-A Visit Information Start: 03/12/22 17:44 Freq: Status: Active Protocol: Document 03/13/22 15:21 [facility] (Rec: 03/13/22 16:05 [facility] [id number]) Out-Patient Physical Therapy Visit Information Visit Information Visit Type Initial Evaluation Visit Start Time 15:21 Visit Stop Time 16:03 Total Visit Minutes 42 Visit Number 1 Number of REVENUE RESEARCH ANALYST Visits 0 PT-OP-B Current Condition Start: 03/12/22 17:44 Freq: Status: Active Protocol: Document 03/13/22 15:21 [facility] (Rec: 03/13/22 16:05 [facility] [id number]) Current Condition History of Current Condition Onset Date September Current Complaints L med knee pain, L back to post leg History of Current Condition In September, L knee started bothering her while running. Had to wait til January to see MD . When got in with MD, she started to have L SI/ buttock pain and it goes down post thigh and into calf. She has some mild tingling in calf and and dorsal aspect of toes 2-4 . Pain is pretty much every day. It bothers her when bending, squatting, sitting on soft surfaces, running. She can walk without pain. Treatment Goals Patient/Caregiver Goals be able to go downhill w/o pain, be able to return to running (5-7 miles a day on sat/sun) PT-OP-C Subjective Start: 03/12/22 17:44 Freq: Status: Active Protocol: Document 03/13/22 15:21 [facility] (Rec: 03/13/22 16:05 [facility] [id number]) Patient Questionnaires Oswestry Low Back Index Oswestry Score 650 OP-PT Pain Assessment Location R hip Pain Location Details SI region, buttocks & down post leg Scale Used 10; 03/31 Description Aching Description- Other nerve Frequency Constant Pain Duration after aggrevated-can improve w /stretches w/in 10-15 min Variations/Patterns tingling in toes, tingling in calf Pain Aggravating Factors Sitting,Bending Other Pain Aggravating Factors squat Other Pain Alleviating Factors stretching or moving, lay on couch and knees over leg rest PT-OP-D Balance Start: 03/12/22 17:44 Freq: Status: Active Protocol: Document 03/13/22 15:21 [facility] (Rec: 03/13/22 16:05 [facility] [id number]) Balance Tests Single Limb Standing Single Limb- Right >30 sec Single Limb- Left >30 sec PT-OP-F Manual Assessment Start: 03/12/22 17:44 Freq: Status: Active Protocol: Document 03/13/22 15:21 [facility] (Rec: 03/13/22 16:05 [facility] [id number]) Manual Assessments Soft Tissue Assessment Soft Tissue Mobility Assessment tightness L ITB, HS, calf, adductors,glutes L jt line med tenderness Joint Mobility Assessment Joint Mobility Assessment minor elvation of L pelvis. equal greater trochanter PT-OP-G Mobility & Gait Start: 03/12/22 17:44 Freq: Status: Active Protocol: Document 03/13/22 15:21 [facility] (Rec: 03/13/22 16:05 [facility] [id number]) OP Gait Assessment Comments Gait Comments dec push off B, ext at lumbar spine PT-OP-J Posture/Palpation/Skin Start: 03/12/22 17:44 Freq: Status: Active Protocol: Document 03/13/22 15:21 [facility] (Rec: 03/13/22 16:05 [facility] [id number]) Posture Evaluation Martínez Postural Classification System Martínez Postural Classifications Posterior/Posterior Vertebral Compression Test 2 Lumbar Protective Mechanism Left AP 3 Lumbar Protective Mechanism Right AP 1 Lumbar Protective Mechanism Left PA 3 Lumbar Protective Mechanism Right PA 3 PT-OP-K Range of Motion Start: 03/12/22 17:44 Freq: Status: Active Protocol: Document 03/13/22 15:21 [facility] (Rec: 03/13/22 16:05 [facility] [id number]) Hip Goniometric Range of Motion Hip Right Active Flexion w/Knee Flexed 119 Abduction 30 Left Active Flexion w/Knee Flexed 120 Abduction 29 Comments discomfort w/flex PT-OP-L Special Tests Start: 03/12/22 17:44 Freq: Status: Active Protocol: Document 03/13/22 15:21 [facility] (Rec: 03/13/22 16:05 [facility] [id number]) Special Tests Hip Special Tests Slump Test Results positive L SLR Test Results positive B for pain on L side Sushant Test Results positive B for tightness RF, iliacus & TFL L>R obers Test Results positive L Knee Special Tests Joshua Test Test Results neg ligamentous Test Results neg L Thessaly Test 20 Degrees Test Results neg L PT-OP-M Strength Start: 03/12/22 17:44 Freq: Status: Active Protocol: Document 03/13/22 15:21 [facility] (Rec: 03/13/22 16:05 [facility] [id number]) Hip Strength Hip Manual Muscle Testing Right Flexion (L2) 4+ Good+ Extension (S1) 4+ Good+ Abduction 5 Normal Adduction 4+ Good+ External Rotation 5 Normal Internal Rotation 5 Normal Comments pain in L SI w/MMT Left Flexion (L2) 4+ Good+ Extension (S1) 4- Good- Abduction 4- Good- Adduction 4+ Good+ External Rotation 4+ Good+ Internal Rotation 4+ Good+ Knee Strength Knee Manual Muscle Testing Right Flexion (S2) 5 Normal Left Flexion (S2) 4 Good Extension (L3) 5 Normal Ankle/Foot Strength Ankle and Foot Manual Muscle Testing Right Dorsiflexion (L4) 5 Normal Plantarflexion (S1) 5 Normal Left Dorsiflexion (L4) 5 Normal Plantarflexion (S1) 5 Normal Comments 20 heel raises B PT-OP-T Assessment and Plan Start: 03/12/22 17:44 Freq: Status: Active Protocol: Document 03/13/22 15:21 [facility] (Rec: 03/13/22 16:05 [facility] [id number]) Physical Therapy Assessment Rehab Potential Rehabilitation Potential Good Evaluation Complexity Number of Personal Factors/Comorbidities 3 or More Number of Body Systems Impaired 4 or More Clinical Presentation at Evaluation Evolving Impairments Impairments Activity Tolerance,Balance, Functional Activities, Functional Mobility,Gait,Pain, Posture,ROM,Soft Tissue Mobility,Strength Goals sitting Rn Primary Care Goal (LTG) pt will be able to sit on any surface w/o inc pain LTG Duration 06/13 VCT Retirement Goal (LTG) Pt will score at least 4/5 to show improved postural stabiltiy. LTG Duration 06/13/22 strengt Short Term Goal (STG) Pt will be indep w/HEP STG Duration 05/05/22 Rn Primary Care Goal (LTG) Pt will score at least 4/5 on LPM and 5/5 on BLE MMT to show improved stabiltiy to dec pain in LE and knee LTG Duration 06/13 activities Short Term Goal (STG) Pt will be able to walk downhill during hikes w/o pain STG Duration 04/22/22 Rn Primary Care Goal (LTG) Pt will be able to return to running on the weekends w/o hip, leg or knee pain. LTG Duration 06/13/22 Assessment Summary Assessment Pt presents w/left buttocks pain w/post leg pain down to calf w/occ tingling in calf and dorsal aspect of the foot. She has mild SI asymmetry and L sacral rotation along w/ tightness in glutes which likely is creating some of this pain. Pt was encouraged to keep moving during her upcoming flight and bring a tennis ball for self release. She would benefit from skilled PT to wrok on posture, hip and core stability, mobility and decreasing pain. Physical Therapy Plan Frequency and Duration Frequency of Treatment 1-2x/wk Duration of Treatment 3 months Plan of Care Start Date 03/13/22 Plan of Care End Date 06/13/22 Therapeutic Interventions Therapeutic Interventions Aquatic Therapy,Balance Training,Gait Training,Home Exercise Program,Joint Mobilizations,Manual Therapy, Neuromuscular Re-education, Patient/Caregiver Education, Self-Care/Home Management,Soft Tissue Mobilization,Taping, Therapeutic Activities, Therapeutic Exercises Modalities Cold Pack/Ice Massage,Electric Stimulation,Hot Packs, Infrared Therapy,Traction- Mechanical,Ultrasound Next Visit Focus/Plan Next Note Type Treatment Note Next Visit Plan piriformis stretching, core stability, manual to hip and ITB, hip on axis and inf mobs
--- NOTE | 2022-03-13 19:25 | PT.OPPOC ---
Physical, Occupational & Speech Therapy At [facility] Current Diagnoses Radiculopathy, site unspecified (03/13/22) Low back pain, unspecified (03/13/22) Visit Care Team Role Provider Type Kelly Pabon MD Attending Provider Physician Primary Care Provider Referring Provider Specialty: Family Practice Address: [address] [place] [address], [place], [place], [facility] Email: [email or web address] Plan Of Care PT-OP-T Assessment and Plan Start: 03/12/22 17:44 Freq: Status: Active Protocol: Document 03/13/22 15:21 [facility] (Rec: 03/13/22 16:05 [facility] [id number]) Physical Therapy Assessment Rehab Potential Rehabilitation Potential Good Evaluation Complexity Number of Personal Factors/Comorbidities 3 or More Number of Body Systems Impaired 4 or More Clinical Presentation at Evaluation Evolving Impairments Impairments Activity Tolerance,Balance, Functional Activities, Functional Mobility,Gait,Pain, Posture,ROM,Soft Tissue Mobility,Strength Goals sitting [facility] Goal (LTG) pt will be able to sit on any surface w/o inc pain LTG Duration 06/13 VCT Jd Edwards Goal (LTG) Pt will score at least 4/5 to show improved postural stabiltiy. LTG Duration 06/13/22 strengt Short Term Goal (STG) Pt will be indep w/HEP STG Duration 05/05/22 [facility] Goal (LTG) Pt will score at least 4/5 on LPM and 5/5 on BLE MMT to show improved stabiltiy to dec pain in LE and knee LTG Duration 06/13 activities Short Term Goal (STG) Pt will be able to walk downhill during hikes w/o pain STG Duration 04/22/22 Jd Edwards Goal (LTG) Pt will be able to return to running on the weekends w/o hip, leg or knee pain. LTG Duration 06/13/22 Assessment Summary Assessment Pt presents w/left buttocks pain w/post leg pain down to calf w/occ tingling in calf and dorsal aspect of the foot. She has mild SI asymmetry and L sacral rotation along w/ tightness in glutes which likely is creating some of this pain. Pt was encouraged to keep moving during her upcoming flight and bring a tennis ball for self release. She would benefit from skilled PT to wrok on posture, hip and core stability, mobility and decreasing pain. Physical Therapy Plan Frequency and Duration Frequency of Treatment 1-2x/wk Duration of Treatment 3 months Plan of Care Start Date 03/13/22 Plan of Care End Date 06/13/22 Therapeutic Interventions Therapeutic Interventions Aquatic Therapy,Balance Training,Gait Training,Home Exercise Program,Joint Mobilizations,Manual Therapy, Neuromuscular Re-education, Patient/Caregiver Education, Self-Care/Home Management,Soft Tissue Mobilization,Taping, Therapeutic Activities, Therapeutic Exercises Modalities Cold Pack/Ice Massage,Electric Stimulation,Hot Packs, Infrared Therapy,Traction- Mechanical,Ultrasound Next Visit Focus/Plan Next Note Type Treatment Note Next Visit Plan piriformis stretching, core stability, manual to hip and ITB, hip on axis and inf mobs Plan of Care Dates Plan of Care Start Date 03/13/22 Plan of Care End Date 06/13/22 Electronically Signed by: Kelly Sheffield, PT 03/13/22 0725 If you are in agreement with this Plan of Care, please return a signed and dated copy. I have reviewed this Plan of Care and certify that the skilled therapy services above are required to meet the patient?s needs. Physician Signature Date Printed Name and Credentials Clinical Instructor Signature Printed Name and Credentials
--- NOTE | 2022-04-03 16:04 | PT.OTN ---
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 Had to wait til January to see MD . When got in with MD, she started to have L SI/ buttock pain and it goes down post thigh and into calf. She has some mild tingling in calf and and dorsal aspect of toes 2-4 . Pain is pretty much every day. It bothers her when bending, squatting, sitting on soft surfaces, running. She can walk without pain. Treatment Goals Patient/Caregiver Goals be able to go downhill w/o pain, be able to return to running (5-7 miles a day on sat/sun) PT-OP-C Subjective Start: 03/12/22 17:44 Freq: Status: Active Protocol: Document 04/03/22 15:15 [facility] (Rec: 04/03/22 16:04 [facility] [id number]) OP-PT Subjective Patient Comments Patient Comments Pt reports it wasn't as bad when she was away but still painful. Carrying her backpack was sometimes painful. Sore after sleeping today PT-OP-D Balance Start: 03/12/22 17:44 Freq: Status: Active Protocol: Document 03/13/22 15:21 [facility] (Rec: 03/13/22 16:05 [facility] [id number]) Balance Tests Single Limb Standing Single Limb- Right >30 sec Single Limb- Left >30 sec PT-OP-F Manual Assessment Start: 03/12/22 17:44 Freq: Status: Active Protocol: Document 03/13/22 15:21 [facility] (Rec: 03/13/22 16:05 [facility] [id number]) Manual Assessments Soft Tissue Assessment Soft Tissue Mobility Assessment tightness L ITB, HS, calf, adductors,glutes L jt line med tenderness Joint Mobility Assessment Joint Mobility Assessment minor elvation of L pelvis. equal greater trochanter PT-OP-G Mobility & Gait Start: 03/12/22 17:44 Freq: Status: Active Protocol: Document 03/13/22 15:21 [facility] (Rec: 03/13/22 16:05 [facility] [id number]) OP Gait Assessment Comments Gait Comments dec push off B, ext at lumbar spine PT-OP-J Posture/Palpation/Skin Start: 03/12/22 17:44 Freq: Status: Active Protocol: Document 03/13/22 15:21 [facility] (Rec: 03/13/22 16:05 [facility] [id number]) Posture Evaluation [facility] Postural Classification System [facility] Postural Classifications Posterior/Posterior Vertebral Compression Test 2 Lumbar Protective Mechanism Left AP 3 Lumbar Protective Mechanism Right AP 1 Lumbar Protective Mechanism Left PA 3 Lumbar Protective Mechanism Right PA 3 PT-OP-K Range of Motion Start: 03/12/22 17:44 Freq: Status: Active Protocol: Document 03/13/22 15:21 [facility] (Rec: 03/13/22 16:05 [facility] [id number]) Hip Goniometric Range of Motion Hip Right Active Flexion w/Knee Flexed 119 Abduction 30 Left Active Flexion w/Knee Flexed 120 Abduction 29 Comments discomfort w/flex PT-OP-L Special Tests Start: 03/12/22 17:44 Freq: Status: Active Protocol: Document 03/13/22 15:21 [facility] (Rec: 03/13/22 16:05 [facility] [id number]) Special Tests Hip Special Tests Slump Test Results positive L SLR Test Results positive B for pain on L side Sushant Test Results positive B for tightness RF, iliacus & TFL L>R obers Test Results positive L Knee Special Tests Joshua Test Test Results neg ligamentous Test Results neg L Thessaly Test 20 Degrees Test Results neg L PT-OP-M Strength Start: 03/12/22 17:44 Freq: Status: Active Protocol: Document 03/13/22 15:21 [facility] (Rec: 03/13/22 16:05 [facility] [id number]) Hip Strength Hip Manual Muscle Testing Right Flexion (L2) 4+ Good+ Extension (S1) 4+ Good+ Abduction 5 Normal Adduction 4+ Good+ External Rotation 5 Normal Internal Rotation 5 Normal Comments pain in L SI w/MMT Left Flexion (L2) 4+ Good+ Extension (S1) 4- Good- Abduction 4- Good- Adduction 4+ Good+ External Rotation 4+ Good+ Internal Rotation 4+ Good+ Knee Strength Knee Manual Muscle Testing Right Flexion (S2) 5 Normal Left Flexion (S2) 4 Good Extension (L3) 5 Normal Ankle/Foot Strength Ankle and Foot Manual Muscle Testing Right Dorsiflexion (L4) 5 Normal Plantarflexion (S1) 5 Normal Left Dorsiflexion (L4) 5 Normal Plantarflexion (S1) 5 Normal Comments 20 heel raises B PT-OP-Q Treatments Start: 03/12/22 17:44 Freq: Status: Active Protocol: Document 04/03/22 15:15 [facility] (Rec: 04/03/22 16:04 [facility] [id number]) Therapeutic Exercises Supine Exercises bridge Supine Exercise Name core engagement Side bilateral Reps/Minutes 15 Comments stared w/PT facilitation traction stretch Supine Exercise Name 1. piriformis 2 figure 4 3. active HS w/active DF Side bilateral Reps/Minutes 1&2 .30 sec ea 3. 8 sec x5 Sidelying Exercises abd Side bilateral Reps/Minutes 10 Manual Therapy Treatment Soft Tissue Mobilization piriformis Body Location L Mobilization Type Sustained Pressure Intensity/Depth Moderate Body Position Prone Comments w/hip IR/ER Joint Mobilizations innominate Direction L caudal and ER FM & flex FM sacrum Direction uPA L FM hip Direction on axis ER & Inf mobs PT-OP-T Assessment and Plan Start: 03/12/22 17:44 Freq: Status: Active Protocol: Document 04/03/22 15:15 [facility] (Rec: 04/03/22 16:04 [facility] [id number]) Physical Therapy Assessment Goals sitting Director Of Field Sales Goal (LTG) pt will be able to sit on any surface w/o inc pain LTG Duration 06/13 VCT Intermediate Goal (LTG) Pt will score at least 4/5 to show improved postural stabiltiy. LTG Duration 06/13/22 strengt Short Term Goal (STG) Pt will be indep w/HEP STG Duration 05/05/22 Director Of Field Sales Goal (LTG) Pt will score at least 4/5 on LPM and 5/5 on BLE MMT to show improved stabiltiy to dec pain in LE and knee LTG Duration 06/13 activities Short Term Goal (STG) Pt will be able to walk downhill during hikes w/o pain STG Duration 04/22/22 Intermediate Goal (LTG) Pt will be able to return to running on the weekends w/o hip, leg or knee pain. LTG Duration 06/13/22 Assessment Summary Assessment Pt had improved ER and flex w/ less paina fter manual treatment. She did well with exercsies w/o pain. Physical Therapy Plan Frequency and Duration Frequency of Treatment 1-2x/wk Duration of Treatment 3 months Plan of Care Start Date 03/13/22 Plan of Care End Date 06/13/22 Next Visit Focus/Plan Next Note Type Treatment Note Next Visit Plan review exercises, manual to hip and ITB and innominate, progress core
--- NOTE | 2022-04-05 15:18 | PT.OTN ---
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 Had to wait til January to see MD . When got in with MD, she started to have L SI/ buttock pain and it goes down post thigh and into calf. She has some mild tingling in calf and and dorsal aspect of toes 2-4 . Pain is pretty much every day. It bothers her when bending, squatting, sitting on soft surfaces, running. She can walk without pain. Treatment Goals Patient/Caregiver Goals be able to go downhill w/o pain, be able to return to running (5-7 miles a day on sat/sun) PT-OP-C Subjective Start: 03/12/22 17:44 Freq: Status: Active Protocol: Document 04/05/22 12:56 [facility] (Rec: 04/05/22 15:18 [facility] [id number]) OP-PT Subjective Patient Comments Patient Comments Pt reports Ams are the worse PT-OP-D Balance Start: 03/12/22 17:44 Freq: Status: Active Protocol: Document 03/13/22 15:21 [facility] (Rec: 03/13/22 16:05 [facility] [id number]) Balance Tests Single Limb Standing Single Limb- Right >30 sec Single Limb- Left >30 sec PT-OP-F Manual Assessment Start: 03/12/22 17:44 Freq: Status: Active Protocol: Document 03/13/22 15:21 [facility] (Rec: 03/13/22 16:05 [facility] [id number]) Manual Assessments Soft Tissue Assessment Soft Tissue Mobility Assessment tightness L ITB, HS, calf, adductors,glutes L jt line med tenderness Joint Mobility Assessment Joint Mobility Assessment minor elvation of L pelvis. equal greater trochanter PT-OP-G Mobility & Gait Start: 03/12/22 17:44 Freq: Status: Active Protocol: Document 03/13/22 15:21 [facility] (Rec: 03/13/22 16:05 [facility] [id number]) OP Gait Assessment Comments Gait Comments dec push off B, ext at lumbar spine PT-OP-J Posture/Palpation/Skin Start: 03/12/22 17:44 Freq: Status: Active Protocol: Document 03/13/22 15:21 [facility] (Rec: 03/13/22 16:05 [facility] [id number]) Posture Evaluation Martínez Postural Classification System Martínez Postural Classifications Posterior/Posterior Vertebral Compression Test 2 Lumbar Protective Mechanism Left AP 3 Lumbar Protective Mechanism Right AP 1 Lumbar Protective Mechanism Left PA 3 Lumbar Protective Mechanism Right PA 3 PT-OP-K Range of Motion Start: 03/12/22 17:44 Freq: Status: Active Protocol: Document 03/13/22 15:21 [facility] (Rec: 03/13/22 16:05 [facility] [id number]) Hip Goniometric Range of Motion Hip Right Active Flexion w/Knee Flexed 119 Abduction 30 Left Active Flexion w/Knee Flexed 120 Abduction 29 Comments discomfort w/flex PT-OP-L Special Tests Start: 03/12/22 17:44 Freq: Status: Active Protocol: Document 03/13/22 15:21 [facility] (Rec: 03/13/22 16:05 [facility] [id number]) Special Tests Hip Special Tests Slump Test Results positive L SLR Test Results positive B for pain on L side Sushant Test Results positive B for tightness RF, iliacus & TFL L>R obers Test Results positive L Knee Special Tests Joshua Test Test Results neg ligamentous Test Results neg L Thessaly Test 20 Degrees Test Results neg L PT-OP-M Strength Start: 03/12/22 17:44 Freq: Status: Active Protocol: Document 03/13/22 15:21 [facility] (Rec: 03/13/22 16:05 [facility] [id number]) Hip Strength Hip Manual Muscle Testing Right Flexion (L2) 4+ Good+ Extension (S1) 4+ Good+ Abduction 5 Normal Adduction 4+ Good+ External Rotation 5 Normal Internal Rotation 5 Normal Comments pain in L SI w/MMT Left Flexion (L2) 4+ Good+ Extension (S1) 4- Good- Abduction 4- Good- Adduction 4+ Good+ External Rotation 4+ Good+ Internal Rotation 4+ Good+ Knee Strength Knee Manual Muscle Testing Right Flexion (S2) 5 Normal Left Flexion (S2) 4 Good Extension (L3) 5 Normal Ankle/Foot Strength Ankle and Foot Manual Muscle Testing Right Dorsiflexion (L4) 5 Normal Plantarflexion (S1) 5 Normal Left Dorsiflexion (L4) 5 Normal Plantarflexion (S1) 5 Normal Comments 20 heel raises B PT-OP-Q Treatments Start: 03/12/22 17:44 Freq: Status: Active Protocol: Document 04/05/22 12:56 [facility] (Rec: 04/05/22 15:18 [facility] [id number]) Therapeutic Exercises Supine Exercises bridge Supine Exercise Name core engagement Side bilateral Reps/Minutes 5 sec x8 Comments arms across chest stretch Supine Exercise Name 1. piriformis 2 figure 4 3. active HS w/active DF Side bilateral Reps/Minutes 1&2 .30 sec ea 3. 10 sec x2 Sidelying Exercises abd Side bilateral Reps/Minutes 10 Standing Exercises squat Standing Exercise Name over chair Side bilateral Reps/Minutes 15 Comments cues for set up of position Therapeutic Activity Therapeutic Activity sleep Comments s/l and supine sleep prop wpillows and towels Manual Therapy Treatment Soft Tissue Mobilization QL Body Location L QL/ES Mobilization Type Rolling,Strumming Intensity/Depth Moderate Body Position Sidelying Comments w/ant elevation/post dep piriformis Body Location L piriformis and glutes Mobilization Type Sustained Pressure Intensity/Depth Moderate Body Position Sidelying Joint Mobilizations lumbar Comments transverse R L3-5FM gapping L4-5 FM innominate Direction L abd FM hip Direction abd FM L PT-OP-T Assessment and Plan Start: 03/12/22 17:44 Freq: Status: Active Protocol: Document 04/05/22 12:56 [facility] (Rec: 04/05/22 15:18 [facility] [id number]) Physical Therapy Assessment Goals sitting Assisted Goal (LTG) pt will be able to sit on any surface w/o inc pain LTG Duration 06/13 VCT Assisted Goal (LTG) Pt will score at least 4/5 to show improved postural stabiltiy. LTG Duration 06/13/22 strengt Short Term Goal (STG) Pt will be indep w/HEP STG Duration 05/05/22 Assisted Goal (LTG) Pt will score at least 4/5 on LPM and 5/5 on BLE MMT to show improved stabiltiy to dec pain in LE and knee LTG Duration 06/13 activities Short Term Goal (STG) Pt will be able to walk downhill during hikes w/o pain STG Duration 04/22/22 Superintendent System Operation Goal (LTG) Pt will be able to return to running on the weekends w/o hip, leg or knee pain. LTG Duration 06/13/22 Assessment Summary Assessment Pt had improved pelvis motion w/manual treatment. She is doing better overall w/ movement. Exercises went well and pt required very little cues. Physical Therapy Plan Frequency and Duration Frequency of Treatment 1-2x/wk Duration of Treatment 3 months Plan of Care Start Date 03/13/22 Plan of Care End Date 06/13/22 Next Visit Focus/Plan Next Note Type Treatment Note Next Visit Plan advance hip strength and core stabiltiy, work on manual for oimproved hip and innominate mobility
--- NOTE | 2022-04-13 16:15 | PT.OTN ---
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 (Rec: 03/13/22 16:05 [facility] [id number]) Current Condition History of Current Condition Onset Date September Current Complaints L med knee pain, L back to post leg History of Current Condition In September, L knee started bothering her while running. Had to wait til January to see MD . When got in with MD, she started to have L SI/ buttock pain and it goes down post thigh and into calf. She has some mild tingling in calf and and dorsal aspect of toes 2-4 . Pain is pretty much every day. It bothers her when bending, squatting, sitting on soft surfaces, running. She can walk without pain. Treatment Goals Patient/Caregiver Goals be able to go downhill w/o pain, be able to return to running (5-7 miles a day on sat/sun) PT-OP-C Subjective Start: 03/12/22 17:44 Freq: Status: Active Protocol: Document 04/13/22 15:32 [facility] (Rec: 04/13/22 16:15 [facility] [id number]) OP-PT Subjective Patient Comments Patient Comments Pt reports she has been doing exercises daily except for sidelying. Pt reports she used pillow under leg and after a few days tingling started and was more intensse. So did not use it last night and will test to see if symptoms change . She was on vacation and started working again last Saturday. She sometimes gets a pinky horse in the left thigh with bridge ex. PT-OP-D Balance Start: 03/12/22 17:44 Freq: Status: Active Protocol: Document 03/13/22 15:21 [facility] (Rec: 03/13/22 16:05 [facility] [id number]) Balance Tests Single Limb Standing Single Limb- Right >30 sec Single Limb- Left >30 sec PT-OP-F Manual Assessment Start: 03/12/22 17:44 Freq: Status: Active Protocol: Document 03/13/22 15:21 [facility] (Rec: 03/13/22 16:05 [facility] [id number]) Manual Assessments Soft Tissue Assessment Soft Tissue Mobility Assessment tightness L ITB, HS, calf, adductors,glutes L jt line med tenderness Joint Mobility Assessment Joint Mobility Assessment minor elvation of L pelvis. equal greater trochanter PT-OP-G Mobility & Gait Start: 03/12/22 17:44 Freq: Status: Active Protocol: Document 03/13/22 15:21 [facility] (Rec: 03/13/22 16:05 [facility] [id number]) OP Gait Assessment Comments Gait Comments dec push off B, ext at lumbar spine PT-OP-J Posture/Palpation/Skin Start: 03/12/22 17:44 Freq: Status: Active Protocol: Document 07/25/22 13:49 [facility] (Rec: 07/25/22 15:21 [facility] [id number]) Posture Evaluation Martínez Postural Classification System Vertebral Compression Test 3 Lumbar Protective Mechanism Left AP 3 Lumbar Protective Mechanism Right AP 4 Lumbar Protective Mechanism Left PA 3 Lumbar Protective Mechanism Right PA 3 PT-OP-K Range of Motion Start: 03/12/22 17:44 Freq: Status: Active Protocol: Document 03/13/22 15:21 [facility] (Rec: 03/13/22 16:05 [facility] [id number]) Hip Goniometric Range of Motion Hip Right Active Flexion w/Knee Flexed 119 Abduction 30 Left Active Flexion w/Knee Flexed 120 Abduction 29 Comments discomfort w/flex PT-OP-L Special Tests Start: 03/12/22 17:44 Freq: Status: Active Protocol: Document 03/13/22 15:21 [facility] (Rec: 03/13/22 16:05 [facility] [id number]) Special Tests Hip Special Tests Slump Test Results positive L SLR Test Results positive B for pain on L side Sushant Test Results positive B for tightness RF, iliacus & TFL L>R obers Test Results positive L Knee Special Tests Joshua Test Test Results neg ligamentous Test Results neg L Thessaly Test 20 Degrees Test Results neg L PT-OP-M Strength Start: 03/12/22 17:44 Freq: Status: Active Protocol: Document 07/25/22 13:49 [facility] (Rec: 07/25/22 15:21 [facility] [id number]) Hip Strength Hip Manual Muscle Testing Right Flexion (L2) 5 Normal Extension (S1) 4+ Good+ Abduction 5 Normal Adduction 5 Normal External Rotation 5 Normal Internal Rotation 5 Normal Left Flexion (L2) 4+ Good+ Extension (S1) 4+ Good+ Abduction 4 Good Adduction 5 Normal External Rotation 5 Normal Internal Rotation 5 Normal Comments pain abd & ext Knee Strength Knee Manual Muscle Testing Right Flexion (S2) 5 Normal Extension (L3) 5 Normal Left Flexion (S2) 4+ Good+ Extension (L3) 5 Normal Comments mild pain w/flex Ankle/Foot Strength Ankle and Foot Manual Muscle Testing Right Dorsiflexion (L4) 5 Normal Plantarflexion (S1) 5 Normal Left Dorsiflexion (L4) 5 Normal Plantarflexion (S1) 5 Normal Comments 20 heel raises B PT-OP-Q Treatments Start: 03/12/22 17:44 Freq: Status: Active Protocol: Document 04/13/22 15:32 [facility] (Rec: 04/13/22 16:15 [facility] [id number]) Therapeutic Exercises Supine Exercises bridge Supine Exercise Name core engagement Side bilateral Reps/Minutes 5 sec x8 Comments arms across chest stretch Supine Exercise Name 1. piriformis 2 figure 4 3. active HS w/active DF Side bilateral Reps/Minutes 1&2 .30 sec ea 3. 10 sec x2 Sidelying Exercises abd Side bilateral Reps/Minutes 10 Standing Exercises squat Standing Exercise Name over mat table Side bilateral Reps/Minutes 15 Comments cues for keeping knee behind toes Manual Therapy Treatment Soft Tissue Mobilization QL Body Location L QL/ES Mobilization Type Rolling,Strumming Intensity/Depth Moderate Body Position Sidelying Comments w/ant elevation/post dep piriformis Body Location L piriformis and glutes Mobilization Type Sustained Pressure Intensity/Depth Moderate Body Position Sidelying Self-Care/Home Management Treatment Education Patient Education Home Exercise Program,Pain Management Other Education Educated pt on self-STM w/ tennis ball to hip - good feedback response. Added to HEP: self-STM at wall with tennis ball for glute, piriformis and ITB - HO given. PT-OP-T Assessment and Plan Start: 03/12/22 17:44 Freq: Status: Active Protocol: Document 04/13/22 15:32 [facility] (Rec: 09/24/22 07:14 [facility] [id number]) Physical Therapy Assessment Goals sitting Correction Goal (LTG) pt will be able to sit on any surface w/o inc pain LTG Duration 06/13 VCT Correction Goal (LTG) Pt will score at least 4/5 to show improved postural stabiltiy. LTG Duration 06/13/22 strengt Short Term Goal (STG) Pt will be indep w/HEP STG Duration 05/05/22 Administrative Officer Goal (LTG) Pt will score at least 4/5 on LPM and 5/5 on BLE MMT to show improved stabiltiy to dec pain in LE and knee LTG Duration 06/13 activities Short Term Goal (STG) Pt will be able to walk downhill during hikes w/o pain STG Duration 04/22/22 Correction Goal (LTG) Pt will be able to return to running on the weekends w/o hip, leg or knee pain. LTG Duration 06/13/22 Assessment Summary Assessment Pt requires cues for low back hyperextension. Palpable tightness improves with manual therapy - good feedback response. ducated pt on self- STM w/ tennis ball to hip - good feedback response. Added to HEP: self-STM at wall with tennis ball for glute, piriformis and ITB - HO given. Physical Therapy Plan Frequency and Duration Frequency of Treatment 1-2x/wk Plan of Care Start Date 03/13/22 Plan of Care End Date 06/13/22 Therapeutic Interventions Therapeutic Interventions Aquatic Therapy,Balance Training,Gait Training,Home Exercise Program,Joint Mobilizations,Manual Therapy, Neuromuscular Re-education, Patient/Caregiver Education, Self-Care/Home Management,Soft Tissue Mobilization,Taping, Therapeutic Activities, Therapeutic Exercises Modalities Cold Pack/Ice Massage,Electric Stimulation,Hot Packs, Infrared Therapy,Traction- Mechanical,Ultrasound Next Visit Focus/Plan Next Note Type Treatment Note Next Visit Plan advance hip strength and core stabiltiy, work on manual for oimproved hip and innominate mobility [ End ]
--- NOTE | 2022-04-18 13:45 | PT.OTN ---
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 Had to wait til January to see MD . When got in with MD, she started to have L SI/ buttock pain and it goes down post thigh and into calf. She has some mild tingling in calf and and dorsal aspect of toes 2-4 . Pain is pretty much every day. It bothers her when bending, squatting, sitting on soft surfaces, running. She can walk without pain. Treatment Goals Patient/Caregiver Goals be able to go downhill w/o pain, be able to return to running (5-7 miles a day on sat/sun) PT-OP-C Subjective Start: 03/12/22 17:44 Freq: Status: Active Protocol: Document 04/18/22 13:05 SP (Rec: 04/18/22 13:47 SP [id number]) OP-PT Subjective Patient Comments Patient Comments Pt reported do difference in use pillow under B knees supine with tingling into L knee to post knee and calf at times. Feels good relief into evening post manual tx late appts and worse tingling sitting on soft surface. HEP helps relief tingling depending on time dedicate to performing. PT-OP-D Balance Start: 03/12/22 17:44 Freq: Status: Active Protocol: Document 03/13/22 15:21 [facility] (Rec: 03/13/22 16:05 [facility] [id number]) Balance Tests Single Limb Standing Single Limb- Right >30 sec Single Limb- Left >30 sec PT-OP-F Manual Assessment Start: 03/12/22 17:44 Freq: Status: Active Protocol: Document 03/13/22 15:21 [facility] (Rec: 03/13/22 16:05 [facility] [id number]) Manual Assessments Soft Tissue Assessment Soft Tissue Mobility Assessment tightness L ITB, HS, calf, adductors,glutes L jt line med tenderness Joint Mobility Assessment Joint Mobility Assessment minor elvation of L pelvis. equal greater trochanter PT-OP-G Mobility & Gait Start: 03/12/22 17:44 Freq: Status: Active Protocol: Document 03/13/22 15:21 [facility] (Rec: 03/13/22 16:05 [facility] [id number]) OP Gait Assessment Comments Gait Comments dec push off B, ext at lumbar spine PT-OP-J Posture/Palpation/Skin Start: 03/12/22 17:44 Freq: Status: Active Protocol: Document 03/13/22 15:21 [facility] (Rec: 03/13/22 16:05 [facility] [id number]) Posture Evaluation Martínez Postural Classification System Martínez Postural Classifications Posterior/Posterior Vertebral Compression Test 2 Lumbar Protective Mechanism Left AP 3 Lumbar Protective Mechanism Right AP 1 Lumbar Protective Mechanism Left PA 3 Lumbar Protective Mechanism Right PA 3 PT-OP-K Range of Motion Start: 03/12/22 17:44 Freq: Status: Active Protocol: Document 03/13/22 15:21 [facility] (Rec: 03/13/22 16:05 [facility] [id number]) Hip Goniometric Range of Motion Hip Right Active Flexion w/Knee Flexed 119 Abduction 30 Left Active Flexion w/Knee Flexed 120 Abduction 29 Comments discomfort w/flex PT-OP-L Special Tests Start: 03/12/22 17:44 Freq: Status: Active Protocol: Document 03/13/22 15:21 [facility] (Rec: 03/13/22 16:05 [facility] [id number]) Special Tests Hip Special Tests Slump Test Results positive L SLR Test Results positive B for pain on L side Sushant Test Results positive B for tightness RF, iliacus & TFL L>R obers Test Results positive L Knee Special Tests Joshua Test Test Results neg ligamentous Test Results neg L Thessaly Test 20 Degrees Test Results neg L PT-OP-M Strength Start: 03/12/22 17:44 Freq: Status: Active Protocol: Document 03/13/22 15:21 [facility] (Rec: 03/13/22 16:05 [facility] [id number]) Hip Strength Hip Manual Muscle Testing Right Flexion (L2) 4+ Good+ Extension (S1) 4+ Good+ Abduction 5 Normal Adduction 4+ Good+ External Rotation 5 Normal Internal Rotation 5 Normal Comments pain in L SI w/MMT Left Flexion (L2) 4+ Good+ Extension (S1) 4- Good- Abduction 4- Good- Adduction 4+ Good+ External Rotation 4+ Good+ Internal Rotation 4+ Good+ Knee Strength Knee Manual Muscle Testing Right Flexion (S2) 5 Normal Left Flexion (S2) 4 Good Extension (L3) 5 Normal Ankle/Foot Strength Ankle and Foot Manual Muscle Testing Right Dorsiflexion (L4) 5 Normal Plantarflexion (S1) 5 Normal Left Dorsiflexion (L4) 5 Normal Plantarflexion (S1) 5 Normal Comments 20 heel raises B PT-OP-Q Treatments Start: 03/12/22 17:44 Freq: Status: Active Protocol: Document 04/18/22 13:05 SP (Rec: 04/18/22 13:47 SP [id number]) Therapeutic Exercises Supine Exercises bridge Supine Exercise Name core engagement Side bilateral Equipment Used arms across chest> at side w/ TB #2 across hips Reps/Minutes 10 sec x8 Comments good neutral pelvis, increased glut/core fac with TB, no HS recruitment stretch Supine Exercise Name 1. piriformis 2 figure 4 3. active HS w/active DF/IV Side bilateral Reps/Minutes 1&2 .30 sec ea 3. 10 sec x2 Comments 3. added peroneal n glide to sciatic with good response Sidelying Exercises abd Sidelying Exercise Name HEP reviewed Side bilateral Equipment Used pillow between BLEs if needed for support work mid range assist target Reps/Minutes 2x10 Comments good stacked on side good pacing, cued DF neutral ankle Standing Exercises band walk Standing Exercise Name added to HEP Side bilateral Resistance TB #2 loop at ankles Reps/Minutes 10 ft x5 laps Comments cue no SB, aware book on head and core squat Standing Exercise Name over mat table Side bilateral Reps/Minutes 15 Comments good keeping knee behind toes Manual Therapy Treatment Soft Tissue Mobilization QL Body Location L QL/ES Mobilization Type Rolling,Strumming Intensity/Depth Moderate Body Position Sidelying Comments w/ant elevation/post dep piriformis Body Location L piriformis and glutes Mobilization Type Sustained Pressure Intensity/Depth Moderate Body Position Sidelying Comments manual and hip abd FM clam PT-OP-T Assessment and Plan Start: 03/12/22 17:44 Freq: Status: Active Protocol: Document 04/18/22 13:05 SP (Rec: 04/18/22 13:47 SP [id number]) Physical Therapy Assessment Goals sitting Longterm Goal (LTG) pt will be able to sit on any surface w/o inc pain LTG Duration 06/13 VCT Longterm Goal (LTG) Pt will score at least 4/5 to show improved postural stabiltiy. LTG Duration 06/13/22 strengt Short Term Goal (STG) Pt will be indep w/HEP STG Duration 05/05/22 Transport Specialist Goal (LTG) Pt will score at least 4/5 on LPM and 5/5 on BLE MMT to show improved stabiltiy to dec pain in LE and knee LTG Duration 06/13 activities Short Term Goal (STG) Pt will be able to walk downhill during hikes w/o pain STG Duration 04/22/22 Transport Specialist Goal (LTG) Pt will be able to return to running on the weekends w/o hip, leg or knee pain. LTG Duration 06/13/22 Assessment Summary Assessment Pt good feedback response to manual and hip abd/core facilitation HEP. Improved self corrections and use of rolling pin, ball wall for self massage carryover. Physical Therapy Plan Frequency and Duration Frequency of Treatment 1-2x/wk Duration of treatment (weeks) 12 Plan of Care Start Date 03/13/22 Plan of Care End Date 06/13/22 Therapeutic Interventions Therapeutic Interventions Aquatic Therapy,Balance Training,Gait Training,Home Exercise Program,Joint Mobilizations,Manual Therapy, Neuromuscular Re-education, Patient/Caregiver Education, Self-Care/Home Management,Soft Tissue Mobilization,Taping, Therapeutic Activities, Therapeutic Exercises Modalities Cold Pack/Ice Massage,Electric Stimulation,Hot Packs, Infrared Therapy,Traction- Mechanical,Ultrasound Next Visit Focus/Plan Next Note Type Treatment Note Next Visit Plan advance hip strength and core stabiltiy, work on manual for oimproved hip and innominate mobility
--- NOTE | 2022-04-20 13:45 | PT.OTN ---
Current Diagnoses Radiculopathy, site unspecified (04/20/22) Low back pain, unspecified (04/20/22) Physical Therapy Treatment Note PT-OP-A Visit Information Start: 03/12/22 17:44 Freq: Status: Active Protocol: Document 04/20/22 13:05 SP (Rec: 04/20/22 13:48 SP [id number]) Out-Patient Physical Therapy Visit Information Visit Information Visit Type Treatment Note Visit Start Time 13:05 Visit Stop Time 13:45 Total Visit Minutes 40 Visit Number 6 Number of DUSTER TENDER Visits 3 PT-OP-B Current Condition Start: 03/12/22 17:44 Freq: Status: Active Protocol: Document 03/13/22 15:21 [facility] (Rec: 03/13/22 16:05 [facility] [id number]) Current Condition History of Current Condition Onset Date September Current Complaints L med knee pain, L back to post leg History of Current Condition In September, L knee started bothering her while running. Had to wait til January to see MD . When got in with MD, she started to have L SI/ buttock pain and it goes down post thigh and into calf. She has some mild tingling in calf and and dorsal aspect of toes 2-4 . Pain is pretty much every day. It bothers her when bending, squatting, sitting on soft surfaces, running. She can walk without pain. Treatment Goals Patient/Caregiver Goals be able to go downhill w/o pain, be able to return to running (5-7 miles a day on sat/sun) PT-OP-C Subjective Start: 03/12/22 17:44 Freq: Status: Active Protocol: Document 04/20/22 13:05 SP (Rec: 04/20/22 13:48 SP [id number]) OP-PT Subjective Patient Comments Patient Comments Pt reported compliant with HEP . Her L hip was sore after last tx but the stretching is helping and band walk was good work out. Feel making gains. Wants to review self STMs with ball wall. PT-OP-D Balance Start: 03/12/22 17:44 Freq: Status: Active Protocol: Document 03/13/22 15:21 [facility] (Rec: 03/13/22 16:05 [facility] [id number]) Balance Tests Single Limb Standing Single Limb- Right >30 sec Single Limb- Left >30 sec PT-OP-F Manual Assessment Start: 03/12/22 17:44 Freq: Status: Active Protocol: Document 03/13/22 15:21 [facility] (Rec: 03/13/22 16:05 [facility] [id number]) Manual Assessments Soft Tissue Assessment Soft Tissue Mobility Assessment tightness L ITB, HS, calf, adductors,glutes L jt line med tenderness Joint Mobility Assessment Joint Mobility Assessment minor elvation of L pelvis. equal greater trochanter PT-OP-G Mobility & Gait Start: 03/12/22 17:44 Freq: Status: Active Protocol: Document 03/13/22 15:21 [facility] (Rec: 03/13/22 16:05 [facility] [id number]) OP Gait Assessment Comments Gait Comments dec push off B, ext at lumbar spine PT-OP-J Posture/Palpation/Skin Start: 03/12/22 17:44 Freq: Status: Active Protocol: Document 03/13/22 15:21 [facility] (Rec: 03/13/22 16:05 [facility] [id number]) Posture Evaluation Martínez Postural Classification System Martínez Postural Classifications Posterior/Posterior Vertebral Compression Test 2 Lumbar Protective Mechanism Left AP 3 Lumbar Protective Mechanism Right AP 1 Lumbar Protective Mechanism Left PA 3 Lumbar Protective Mechanism Right PA 3 PT-OP-K Range of Motion Start: 03/12/22 17:44 Freq: Status: Active Protocol: Document 03/13/22 15:21 [facility] (Rec: 03/13/22 16:05 [facility] [id number]) Hip Goniometric Range of Motion Hip Right Active Flexion w/Knee Flexed 119 Abduction 30 Left Active Flexion w/Knee Flexed 120 Abduction 29 Comments discomfort w/flex PT-OP-L Special Tests Start: 03/12/22 17:44 Freq: Status: Active Protocol: Document 03/13/22 15:21 [facility] (Rec: 03/13/22 16:05 [facility] [id number]) Special Tests Hip Special Tests Slump Test Results positive L SLR Test Results positive B for pain on L side Sushant Test Results positive B for tightness RF, iliacus & TFL L>R obers Test Results positive L Knee Special Tests Joshua Test Test Results neg ligamentous Test Results neg L Thessaly Test 20 Degrees Test Results neg L PT-OP-M Strength Start: 03/12/22 17:44 Freq: Status: Active Protocol: Document 03/13/22 15:21 [facility] (Rec: 03/13/22 16:05 [facility] [id number]) Hip Strength Hip Manual Muscle Testing Right Flexion (L2) 4+ Good+ Extension (S1) 4+ Good+ Abduction 5 Normal Adduction 4+ Good+ External Rotation 5 Normal Internal Rotation 5 Normal Comments pain in L SI w/MMT Left Flexion (L2) 4+ Good+ Extension (S1) 4- Good- Abduction 4- Good- Adduction 4+ Good+ External Rotation 4+ Good+ Internal Rotation 4+ Good+ Knee Strength Knee Manual Muscle Testing Right Flexion (S2) 5 Normal Left Flexion (S2) 4 Good Extension (L3) 5 Normal Ankle/Foot Strength Ankle and Foot Manual Muscle Testing Right Dorsiflexion (L4) 5 Normal Plantarflexion (S1) 5 Normal Left Dorsiflexion (L4) 5 Normal Plantarflexion (S1) 5 Normal Comments 20 heel raises B PT-OP-Q Treatments Start: 03/12/22 17:44 Freq: Status: Active Protocol: Document 04/20/22 13:05 SP (Rec: 04/20/22 13:48 SP [id number]) Therapeutic Exercises Sitting Exercises stretch Sitting Exercise Name 1. piriformis stretch Side bilateral Reps/Minutes 30 x2 Comments good distal PF att stretch response Standing Exercises RDL Standing Exercise Name Single leg: added to HEP Side bilateral Equipment Used dowel, mirror Reps/Minutes 4 x5 reps Comments cued hip abd fac, straight back hip hinge, core fac glut med hip lift Standing Exercise Name glut med ball wall elevate SLS Side bilateral Resistance added to HEP- see scanned HO Equipment Used kickball wall Reps/Minutes 2x8 reps Comments good glut med muscle tiring self STMs Standing Exercise Name ball wall: Glut, PF, TFL Equipment Used at wall and seated sustained pressure vs rolling Reps/Minutes 5 min total Comments good feedback response band walk Standing Exercise Name review HEP: lateral and fwd/ bkwd Side bilateral Resistance TB #2 loop at ankles Reps/Minutes 20 ft x2 laps Comments cue no SB, aware book on head and core squat Standing Exercise Name over mat table Side bilateral Reps/Minutes 15 Comments good keeping knee behind toes PT-OP-T Assessment and Plan Start: 03/12/22 17:44 Freq: Status: Active Protocol: Document 04/20/22 13:05 [facility] (Rec: 04/20/22 13:48 SP [id number]) Physical Therapy Assessment Goals sitting Half-Way Goal (LTG) pt will be able to sit on any surface w/o inc pain 04/20/22: progressing: harder surfaces ok mroe tolerance, softer surfaces couch ok for 30 min before pain. Finds if sit edge much better. LTG Duration 06/13 progressin04/20/22 VCT Half-Way Goal (LTG) Pt will score at least 4/5 to show improved postural stabiltiy. LTG Duration 06/13/22 strengt Short Term Goal (STG) Pt will be indep w/HEP STG Duration 05/05/22 Publicity Writer Goal (LTG) Pt will score at least 4/5 on LPM and 5/5 on BLE MMT to show improved stabiltiy to dec pain in LE and knee LTG Duration 06/13 activities Short Term Goal (STG) Pt will be able to walk downhill during hikes w/o pain STG Duration 04/22/22 Half-Way Goal (LTG) Pt will be able to return to running on the weekends w/o hip, leg or knee pain. LTG Duration 06/13/22 Assessment Summary Assessment Pt responded well with good demo of self STMs to apply at home when needed. Initiated SLS hip elevation glut med and SLS RDL small range with cue for core fac resulted in glut med muscle tiring response. Physical Therapy Plan Frequency and Duration Frequency of Treatment 1-2x/wk Duration of treatment (weeks) 12 Plan of Care Start Date 03/13/22 Plan of Care End Date 06/13/22 Therapeutic Interventions Therapeutic Interventions Aquatic Therapy,Balance Training,Gait Training,Home Exercise Program,Joint Mobilizations,Manual Therapy, Neuromuscular Re-education, Patient/Caregiver Education, Self-Care/Home Management,Soft Tissue Mobilization,Taping, Therapeutic Activities, Therapeutic Exercises Modalities Cold Pack/Ice Massage,Electric Stimulation,Hot Packs, Infrared Therapy,Traction- Mechanical,Ultrasound Next Visit Focus/Plan Next Note Type Treatment Note Next Visit Plan REcheck glut med ball wall elevation, SLS RDL added last tx. POC: advance hip strength and core stabiltiy, work on manual for improved hip and innominate mobility
--- NOTE | 2022-04-25 15:06 | PT.OTN ---
Current Diagnoses Radiculopathy, site unspecified (04/25/22) Low back pain, unspecified (04/25/22) Physical Therapy Treatment Note PT-OP-A Visit Information Start: 03/12/22 17:44 Freq: Status: Active Protocol: Document 04/25/22 13:00 [facility] (Rec: 04/25/22 15:06 [facility] [id number]) Out-Patient Physical Therapy Visit Information Visit Information Visit Type Treatment Note Visit Start Time 13:02 Visit Stop Time 13:45 Total Visit Minutes 43 Visit Number 7 Number of LEATHER BELT LOOP CUTTER Visits 0 PT-OP-B Current Condition Start: 03/12/22 17:44 Freq: Status: Active Protocol: Document 03/13/22 15:21 [facility] (Rec: 03/13/22 16:05 [facility] [id number]) Current Condition History of Current Condition Onset Date September Current Complaints L med knee pain, L back to post leg History of Current Condition In September, L knee started bothering her while running. Had to wait til January to see MD . When got in with MD, she started to have L SI/ buttock pain and it goes down post thigh and into calf. She has some mild tingling in calf and and dorsal aspect of toes 2-4 . Pain is pretty much every day. It bothers her when bending, squatting, sitting on soft surfaces, running. She can walk without pain. Treatment Goals Patient/Caregiver Goals be able to go downhill w/o pain, be able to return to running (5-7 miles a day on sat/sun) PT-OP-C Subjective Start: 03/12/22 17:44 Freq: Status: Active Protocol: Document 04/25/22 13:00 [facility] (Rec: 04/25/22 15:06 [facility] [id number]) OP-PT Subjective Patient Comments Patient Comments Pt notes pain is up and down. mostly in L buttocks and sometimes L calf but not in thigh as much PT-OP-D Balance Start: 03/12/22 17:44 Freq: Status: Active Protocol: Document 03/13/22 15:21 [facility] (Rec: 03/13/22 16:05 [facility] [id number]) Balance Tests Single Limb Standing Single Limb- Right >30 sec Single Limb- Left >30 sec PT-OP-F Manual Assessment Start: 03/12/22 17:44 Freq: Status: Active Protocol: Document 03/13/22 15:21 [facility] (Rec: 03/13/22 16:05 [facility] [id number]) Manual Assessments Soft Tissue Assessment Soft Tissue Mobility Assessment tightness L ITB, HS, calf, adductors,glutes L jt line med tenderness Joint Mobility Assessment Joint Mobility Assessment minor elvation of L pelvis. equal greater trochanter PT-OP-G Mobility & Gait Start: 03/12/22 17:44 Freq: Status: Active Protocol: Document 03/13/22 15:21 [facility] (Rec: 03/13/22 16:05 [facility] [id number]) OP Gait Assessment Comments Gait Comments dec push off B, ext at lumbar spine PT-OP-J Posture/Palpation/Skin Start: 03/12/22 17:44 Freq: Status: Active Protocol: Document 03/13/22 15:21 [facility] (Rec: 03/13/22 16:05 [facility] [id number]) Posture Evaluation [facility] Postural Classification System [facility] Postural Classifications Posterior/Posterior Vertebral Compression Test 2 Lumbar Protective Mechanism Left AP 3 Lumbar Protective Mechanism Right AP 1 Lumbar Protective Mechanism Left PA 3 Lumbar Protective Mechanism Right PA 3 PT-OP-K Range of Motion Start: 03/12/22 17:44 Freq: Status: Active Protocol: Document 03/13/22 15:21 [facility] (Rec: 03/13/22 16:05 [facility] [id number]) Hip Goniometric Range of Motion Hip Right Active Flexion w/Knee Flexed 119 Abduction 30 Left Active Flexion w/Knee Flexed 120 Abduction 29 Comments discomfort w/flex PT-OP-L Special Tests Start: 03/12/22 17:44 Freq: Status: Active Protocol: Document 03/13/22 15:21 [facility] (Rec: 03/13/22 16:05 [facility] [id number]) Special Tests Hip Special Tests Slump Test Results positive L SLR Test Results positive B for pain on L side Sushant Test Results positive B for tightness RF, iliacus & TFL L>R obers Test Results positive L Knee Special Tests Joshua Test Test Results neg ligamentous Test Results neg L Thessaly Test 20 Degrees Test Results neg L PT-OP-M Strength Start: 03/12/22 17:44 Freq: Status: Active Protocol: Document 03/13/22 15:21 [facility] (Rec: 03/13/22 16:05 [facility] [id number]) Hip Strength Hip Manual Muscle Testing Right Flexion (L2) 4+ Good+ Extension (S1) 4+ Good+ Abduction 5 Normal Adduction 4+ Good+ External Rotation 5 Normal Internal Rotation 5 Normal Comments pain in L SI w/MMT Left Flexion (L2) 4+ Good+ Extension (S1) 4- Good- Abduction 4- Good- Adduction 4+ Good+ External Rotation 4+ Good+ Internal Rotation 4+ Good+ Knee Strength Knee Manual Muscle Testing Right Flexion (S2) 5 Normal Left Flexion (S2) 4 Good Extension (L3) 5 Normal Ankle/Foot Strength Ankle and Foot Manual Muscle Testing Right Dorsiflexion (L4) 5 Normal Plantarflexion (S1) 5 Normal Left Dorsiflexion (L4) 5 Normal Plantarflexion (S1) 5 Normal Comments 20 heel raises B PT-OP-Q Treatments Start: 03/12/22 17:44 Freq: Status: Active Protocol: Document 04/25/22 13:00 [facility] (Rec: 04/25/22 15:06 [facility] [id number]) Therapeutic Exercises Standing Exercises arch lift Side bilateral Reps/Minutes 10 Comments max cues big toe down stretch Standing Exercise Name 1. B calf on step 2. hip flexor stretch Side bilateral Reps/Minutes 30 sec glut med hip lift Standing Exercise Name hip hike on step Side bilateral Reps/Minutes 10 Therapeutic Activity Therapeutic Activity posture Reps/Minutes 8 min Comments unsupported sitting position edu-placement of pelvis, spine position supported sitting edu for use of pillow behind back or towel Manual Therapy Treatment Soft Tissue Mobilization calf Body Location L Mobilization Type Rolling,Strumming Intensity/Depth Moderate Comments w/APs Joint Mobilizations ankle Joint L Comments AP tib distraction calcaneus talar distraction & AP FM Self-Care/Home Management Treatment Education Other Education discussed frequent breaks during day for stretching at work or changing position PT-OP-T Assessment and Plan Start: 03/12/22 17:44 Freq: Status: Active Protocol: Document 04/25/22 13:00 [facility] (Rec: 04/25/22 15:06 [facility] [id number]) Physical Therapy Assessment Goals sitting Commission Sales Associate Goal (LTG) pt will be able to sit on any surface w/o inc pain 04/20/22: progressing: harder surfaces ok mroe tolerance, softer surfaces couch ok for 30 min before pain. Finds if sit edge much better. LTG Duration 06/13 progressin04/20/22 VCT Commission Sales Associate Goal (LTG) Pt will score at least 4/5 to show improved postural stabiltiy. LTG Duration 06/13/22 strengt Short Term Goal (STG) Pt will be indep w/HEP STG Duration 05/05/22 Nursing Home Goal (LTG) Pt will score at least 4/5 on LPM and 5/5 on BLE MMT to show improved stabiltiy to dec pain in LE and knee LTG Duration 06/13 activities Short Term Goal (STG) Pt will be able to walk downhill during hikes w/o pain STG Duration 04/22/22 Nursing Home Goal (LTG) Pt will be able to return to running on the weekends w/o hip, leg or knee pain. LTG Duration 06/13/22 Assessment Summary Assessment Pt did well with exercises today with cues provided. Notable calf tightness and dec ankle mobility in L ankle along w/dec arch stability that causes L LE hip IR Physical Therapy Plan Frequency and Duration Frequency of Treatment 1-2x/wk Duration of treatment (weeks) 12 Plan of Care Start Date 03/13/22 Plan of Care End Date 06/13/22 Next Visit Focus/Plan Next Note Type Treatment Note Next Visit Plan review hip hikes and planks and SL RDL
--- NOTE | 2022-05-02 15:20 | PT.OTN ---
Current Diagnoses Radiculopathy, site unspecified (05/02/22) Low back pain, unspecified (05/02/22) Physical Therapy Treatment Note PT-OP-A Visit Information Start: 03/12/22 17:44 Freq: Status: Active Protocol: Document 05/02/22 14:29 [facility] (Rec: 05/02/22 15:20 [facility] [id number]) Out-Patient Physical Therapy Visit Information Visit Information Visit Type Treatment Note Visit Start Time 14:32 Visit Stop Time 15:15 Total Visit Minutes 43 Visit Number 8 Number of SEAMER OPERATOR Visits 0 PT-OP-B Current Condition Start: 03/12/22 17:44 Freq: Status: Active Protocol: Document 03/13/22 15:21 [facility] (Rec: 03/13/22 16:05 [facility] [id number]) Current Condition History of Current Condition Onset Date September Current Complaints L med knee pain, L back to post leg History of Current Condition In September, L knee started bothering her while running. Had to wait til January to see MD . When got in with MD, she started to have L SI/ buttock pain and it goes down post thigh and into calf. She has some mild tingling in calf and and dorsal aspect of toes 2-4 . Pain is pretty much every day. It bothers her when bending, squatting, sitting on soft surfaces, running. She can walk without pain. Treatment Goals Patient/Caregiver Goals be able to go downhill w/o pain, be able to return to running (5-7 miles a day on sat/sun) PT-OP-C Subjective Start: 03/12/22 17:44 Freq: Status: Active Protocol: Document 05/02/22 14:29 [facility] (Rec: 05/02/22 15:20 [facility] [id number]) OP-PT Subjective Patient Comments Patient Comments reports had a massage yesterday and felt really good initially and then was sore more later. Pt reports pain when she first gets up its the worst and its tignling and pain in calf and behind knee. sitting is aggrevating more than standing PT-OP-D Balance Start: 03/12/22 17:44 Freq: Status: Active Protocol: Document 03/13/22 15:21 [facility] (Rec: 03/13/22 16:05 [facility] [id number]) Balance Tests Single Limb Standing Single Limb- Right >30 sec Single Limb- Left >30 sec PT-OP-F Manual Assessment Start: 03/12/22 17:44 Freq: Status: Active Protocol: Document 03/13/22 15:21 [facility] (Rec: 03/13/22 16:05 [facility] [id number]) Manual Assessments Soft Tissue Assessment Soft Tissue Mobility Assessment tightness L ITB, HS, calf, adductors,glutes L jt line med tenderness Joint Mobility Assessment Joint Mobility Assessment minor elvation of L pelvis. equal greater trochanter PT-OP-G Mobility & Gait Start: 03/12/22 17:44 Freq: Status: Active Protocol: Document 03/13/22 15:21 [facility] (Rec: 03/13/22 16:05 [facility] [id number]) OP Gait Assessment Comments Gait Comments dec push off B, ext at lumbar spine PT-OP-J Posture/Palpation/Skin Start: 03/12/22 17:44 Freq: Status: Active Protocol: Document 03/13/22 15:21 [facility] (Rec: 03/13/22 16:05 [facility] [id number]) Posture Evaluation [facility] Postural Classification System [facility] Postural Classifications Posterior/Posterior Vertebral Compression Test 2 Lumbar Protective Mechanism Left AP 3 Lumbar Protective Mechanism Right AP 1 Lumbar Protective Mechanism Left PA 3 Lumbar Protective Mechanism Right PA 3 PT-OP-K Range of Motion Start: 03/12/22 17:44 Freq: Status: Active Protocol: Document 03/13/22 15:21 [facility] (Rec: 03/13/22 16:05 [facility] [id number]) Hip Goniometric Range of Motion Hip Right Active Flexion w/Knee Flexed 119 Abduction 30 Left Active Flexion w/Knee Flexed 120 Abduction 29 Comments discomfort w/flex PT-OP-L Special Tests Start: 03/12/22 17:44 Freq: Status: Active Protocol: Document 03/13/22 15:21 [facility] (Rec: 03/13/22 16:05 [facility] [id number]) Special Tests Hip Special Tests Slump Test Results positive L SLR Test Results positive B for pain on L side Sushant Test Results positive B for tightness RF, iliacus & TFL L>R obers Test Results positive L Knee Special Tests Joshua Test Test Results neg ligamentous Test Results neg L Thessaly Test 20 Degrees Test Results neg L PT-OP-M Strength Start: 03/12/22 17:44 Freq: Status: Active Protocol: Document 03/13/22 15:21 [facility] (Rec: 03/13/22 16:05 [facility] [id number]) Hip Strength Hip Manual Muscle Testing Right Flexion (L2) 4+ Good+ Extension (S1) 4+ Good+ Abduction 5 Normal Adduction 4+ Good+ External Rotation 5 Normal Internal Rotation 5 Normal Comments pain in L SI w/MMT Left Flexion (L2) 4+ Good+ Extension (S1) 4- Good- Abduction 4- Good- Adduction 4+ Good+ External Rotation 4+ Good+ Internal Rotation 4+ Good+ Knee Strength Knee Manual Muscle Testing Right Flexion (S2) 5 Normal Left Flexion (S2) 4 Good Extension (L3) 5 Normal Ankle/Foot Strength Ankle and Foot Manual Muscle Testing Right Dorsiflexion (L4) 5 Normal Plantarflexion (S1) 5 Normal Left Dorsiflexion (L4) 5 Normal Plantarflexion (S1) 5 Normal Comments 20 heel raises B PT-OP-Q Treatments Start: 03/12/22 17:44 Freq: Status: Active Protocol: Document 05/02/22 14:29 [facility] (Rec: 05/02/22 15:20 [facility] [id number]) Therapeutic Exercises Prone Exercises plank Prone Exercise Name forearm and feet Side bilateral Reps/Minutes 30 sec Sidelying Exercises basking seal Side left Reps/Minutes 8 sidesplank Sidelying Exercise Name L forearm and knees; R feet and forearm Side bilateral Reps/Minutes 30 sec ea Standing Exercises arch lift Side bilateral Reps/Minutes 10 Comments max cues big toe down RDL Standing Exercise Name Single leg:review Side bilateral Equipment Used dowel Reps/Minutes 10 Comments cued hip abd fac, straight back hip hinge, core fac glut med hip lift Standing Exercise Name hip hike on step Side bilateral Reps/Minutes 10 Manual Therapy Treatment Soft Tissue Mobilization calf Body Location L HS & calf Mobilization Type Rolling,Strumming Intensity/Depth Moderate Comments w/HS stretch &APs QL Body Location L QL/ES Mobilization Type Rolling,Strumming Intensity/Depth Moderate Body Position Sidelying Comments w/ant elevation/post dep Joint Mobilizations lumbar Joint distraction btwn L4-5: L5-S1 Comments post dep FM innominate Joint L abd & ext FM hip Joint L Direction abd FM PT-OP-T Assessment and Plan Start: 03/12/22 17:44 Freq: Status: Active Protocol: Document 05/02/22 14:29 [facility] (Rec: 05/02/22 15:20 [facility] [id number]) Physical Therapy Assessment Goals sitting Retirement Goal (LTG) pt will be able to sit on any surface w/o inc pain 04/20/22: progressing: harder surfaces ok mroe tolerance, softer surfaces couch ok for 30 min before pain. Finds if sit edge much better. LTG Duration 06/13 progressin04/20/22 VCT Retirement Goal (LTG) Pt will score at least 4/5 to show improved postural stabiltiy. LTG Duration 06/13/22 strengt Short Term Goal (STG) Pt will be indep w/HEP STG Duration 05/05/22 Cylinder Filler Goal (LTG) Pt will score at least 4/5 on LPM and 5/5 on BLE MMT to show improved stabiltiy to dec pain in LE and knee LTG Duration 06/13 activities Short Term Goal (STG) Pt will be able to walk downhill during hikes w/o pain STG Duration 04/22/22 Retirement Goal (LTG) Pt will be able to return to running on the weekends w/o hip, leg or knee pain. 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 She has restricted abd and improved in range. Cues still needed w/exercises. Physical Therapy Plan Frequency and Duration Frequency of Treatment 1-2x/wk Duration of treatment (weeks) 12 Plan of Care Start Date 03/13/22 Plan of Care End Date 06/13/22 Next Visit Focus/Plan Next Note Type Treatment Note Next Visit Plan review hip hikes and planks and SL RDL, manual to hip and LE
--- NOTE | 2022-05-16 16:03 | PT.OTN ---
Current Diagnoses Radiculopathy, site unspecified (05/16/22) Low back pain, unspecified (05/16/22) Physical Therapy Treatment Note PT-OP-A Visit Information Start: 03/12/22 17:44 Freq: Status: Active Protocol: Document 05/16/22 15:10 [facility] (Rec: 05/16/22 16:03 [facility] [id number]) Out-Patient Physical Therapy Visit Information Visit Information Visit Type Treatment Note Visit Start Time 15:15 Visit Stop Time 15:58 Total Visit Minutes 43 Visit Number 9 Number of COOK TORTILLA Visits 0 PT-OP-B Current Condition Start: 03/12/22 17:44 Freq: Status: Active Protocol: Document 03/13/22 15:21 [facility] (Rec: 03/13/22 16:05 [facility] [id number]) Current Condition History of Current Condition Onset Date September Current Complaints L med knee pain, L back to post leg History of Current Condition In September, L knee started bothering her while running. Had to wait til January to see MD . When got in with MD, she started to have L SI/ buttock pain and it goes down post thigh and into calf. She has some mild tingling in calf and and dorsal aspect of toes 2-4 . Pain is pretty much every day. It bothers her when bending, squatting, sitting on soft surfaces, running. She can walk without pain. Treatment Goals Patient/Caregiver Goals be able to go downhill w/o pain, be able to return to running (5-7 miles a day on sat/sun) PT-OP-C Subjective Start: 03/12/22 17:44 Freq: Status: Active Protocol: Document 05/16/22 15:10 [facility] (Rec: 05/16/22 16:03 [facility] [id number]) OP-PT Subjective Patient Comments Patient Comments Pt reports she had a good 4 days where the pain was much lesss and she could move around and it was better. The past 2 days have been worse. She was on the treadmill 4 days in a row for an 1hr at an icline (Sat-Saturday). PT-OP-D Balance Start: 03/12/22 17:44 Freq: Status: Active Protocol: Document 03/13/22 15:21 [facility] (Rec: 03/13/22 16:05 [facility] [id number]) Balance Tests Single Limb Standing Single Limb- Right >30 sec Single Limb- Left >30 sec PT-OP-F Manual Assessment Start: 03/12/22 17:44 Freq: Status: Active Protocol: Document 03/13/22 15:21 [facility] (Rec: 03/13/22 16:05 [facility] [id number]) Manual Assessments Soft Tissue Assessment Soft Tissue Mobility Assessment tightness L ITB, HS, calf, adductors,glutes L jt line med tenderness Joint Mobility Assessment Joint Mobility Assessment minor elvation of L pelvis. equal greater trochanter PT-OP-G Mobility & Gait Start: 03/12/22 17:44 Freq: Status: Active Protocol: Document 03/13/22 15:21 [facility] (Rec: 03/13/22 16:05 [facility] [id number]) OP Gait Assessment Comments Gait Comments dec push off B, ext at lumbar spine PT-OP-J Posture/Palpation/Skin Start: 03/12/22 17:44 Freq: Status: Active Protocol: Document 03/13/22 15:21 [facility] (Rec: 03/13/22 16:05 [facility] [id number]) Posture Evaluation [facility] Postural Classification System [facility] Postural Classifications Posterior/Posterior Vertebral Compression Test 2 Lumbar Protective Mechanism Left AP 3 Lumbar Protective Mechanism Right AP 1 Lumbar Protective Mechanism Left PA 3 Lumbar Protective Mechanism Right PA 3 PT-OP-K Range of Motion Start: 03/12/22 17:44 Freq: Status: Active Protocol: Document 03/13/22 15:21 [facility] (Rec: 03/13/22 16:05 [facility] [id number]) Hip Goniometric Range of Motion Hip Right Active Flexion w/Knee Flexed 119 Abduction 30 Left Active Flexion w/Knee Flexed 120 Abduction 29 Comments discomfort w/flex PT-OP-L Special Tests Start: 03/12/22 17:44 Freq: Status: Active Protocol: Document 03/13/22 15:21 [facility] (Rec: 03/13/22 16:05 [facility] [id number]) Special Tests Hip Special Tests Slump Test Results positive L SLR Test Results positive B for pain on L side Sushant Test Results positive B for tightness RF, iliacus & TFL L>R obers Test Results positive L Knee Special Tests Joshua Test Test Results neg ligamentous Test Results neg L Thessaly Test 20 Degrees Test Results neg L PT-OP-M Strength Start: 03/12/22 17:44 Freq: Status: Active Protocol: Document 03/13/22 15:21 [facility] (Rec: 03/13/22 16:05 [facility] [id number]) Hip Strength Hip Manual Muscle Testing Right Flexion (L2) 4+ Good+ Extension (S1) 4+ Good+ Abduction 5 Normal Adduction 4+ Good+ External Rotation 5 Normal Internal Rotation 5 Normal Comments pain in L SI w/MMT Left Flexion (L2) 4+ Good+ Extension (S1) 4- Good- Abduction 4- Good- Adduction 4+ Good+ External Rotation 4+ Good+ Internal Rotation 4+ Good+ Knee Strength Knee Manual Muscle Testing Right Flexion (S2) 5 Normal Left Flexion (S2) 4 Good Extension (L3) 5 Normal Ankle/Foot Strength Ankle and Foot Manual Muscle Testing Right Dorsiflexion (L4) 5 Normal Plantarflexion (S1) 5 Normal Left Dorsiflexion (L4) 5 Normal Plantarflexion (S1) 5 Normal Comments 20 heel raises B PT-OP-Q Treatments Start: 03/12/22 17:44 Freq: Status: Active Protocol: Document 05/16/22 15:10 [facility] (Rec: 05/16/22 16:03 [facility] [id number]) Therapeutic Exercises Prone Exercises plank Prone Exercise Name forearm and feet Side bilateral Reps/Minutes 30 sec Sidelying Exercises basking seal Side left Reps/Minutes 5 sidesplank Sidelying Exercise Name L forearm and knees; R feet and forearm Side bilateral Reps/Minutes 30 sec eax2 Standing Exercises arch lift Side bilateral Reps/Minutes 10 Comments max cues big toe down RDL Standing Exercise Name Single leg:review Side bilateral Reps/Minutes 10 Comments cued for no twist glut med hip lift Standing Exercise Name hip hike on step Side bilateral Reps/Minutes 10 Manual Therapy Treatment Soft Tissue Mobilization QL Body Location L QL/ES Mobilization Type Rolling,Strumming Intensity/Depth Moderate Body Position Sidelying Comments w/ant elevation/post dep Joint Mobilizations lumbar Joint distraction btwn L4-5: L5-S1 & L5R ext FM & L4 L ext FM innominate Joint L abd FM Neuro Re-Education Treatment Other Activities PNF Comments 1. rhythmic intiation L ant elevation & post dep 2. sustained holds L ant elevation & post dep 3. COI L ant elevation & post dep progressed to w/LE pattern 4. mass flex rhythimic initiaion sustained holds and COI L PT-OP-T Assessment and Plan Start: 03/12/22 17:44 Freq: Status: Active Protocol: Document 05/16/22 15:10 [facility] (Rec: 05/16/22 16:03 [facility] [id number]) Physical Therapy Assessment Goals sitting Telephone Triage Nurse Goal (LTG) pt will be able to sit on any surface w/o inc pain 04/20/22: progressing: harder surfaces ok mroe tolerance, softer surfaces couch ok for 30 min before pain. Finds if sit edge much better. LTG Duration 06/13 progressin04/20/22 VCT Care Home Goal (LTG) Pt will score at least 4/5 to show improved postural stabiltiy. LTG Duration 06/13/22 strengt Short Term Goal (STG) Pt will be indep w/HEP STG Duration 05/05/22 Telephone Triage Nurse Goal (LTG) Pt will score at least 4/5 on LPM and 5/5 on BLE MMT to show improved stabiltiy to dec pain in LE and knee LTG Duration 06/13 activities Short Term Goal (STG) Pt will be able to walk downhill during hikes w/o pain STG Duration 04/22/22 Telephone Triage Nurse Goal (LTG) Pt will be able to return to running on the weekends w/o hip, leg or knee pain. LTG Duration 06/13/22 Assessment Summary Assessment Pt improved rolling pattern and ability to faciliate core w/pelvic patterns w/ faciitation. Improved moveemnt into both patterns w/manual. Much less cues needed for ther ex Physical Therapy Plan Frequency and Duration Frequency of Treatment 1-2x/wk Duration of treatment (weeks) 12 Plan of Care Start Date 03/13/22 Plan of Care End Date 06/13/22 Next Visit Focus/Plan Next Note Type Treatment Note Next Visit Plan manual to hip and LE;advance hip/core stability
--- NOTE | 2022-05-23 13:00 | PT.OTN ---
Addendum entered and electronically signed by Glenda Matos PTA 05/23/22 13:59: POC will on 06/13, is scheduled with COMMUNITY EDUCATOR, not scheduled with PT until 06/20. Original Note: Addendum entered and electronically signed by Glenda Matos PTA 05/23/22 13:56: Today was 9th visit. Original Note: Addendum entered and electronically signed by Glenda Matos PTA 05/23/22 13:55: Pt due for PN upcoming visits. Original Note: Current Diagnoses Radiculopathy, site unspecified (05/23/22) Low back pain, unspecified (05/23/22) Physical Therapy Treatment Note PT-OP-A Visit Information Start: 03/12/22 17:44 Freq: Status: Active Protocol: Document 05/23/22 12:18 SP (Rec: 05/23/22 13:45 SP [id number]) Out-Patient Physical Therapy Visit Information Visit Information Visit Type Treatment Note Visit Note KELBY Hay provided manual STMs with education on self application with pt while under direct supervision and guidence as needed from CHE Doshi throughout [place]. Visit Start Time 12:18 Visit Stop Time 13:00 Total Visit Minutes 42 Visit Number 10 Number of COMMUNITY EDUCATOR Visits 1 PT-OP-B Current Condition Start: 03/12/22 17:44 Freq: Status: Active Protocol: Document 03/13/22 15:21 [facility] (Rec: 03/13/22 16:05 [facility] [id number]) Current Condition History of Current Condition Onset Date September Current Complaints L med knee pain, L back to post leg History of Current Condition In September, L knee started bothering her while running. Had to wait til January to see MD . When got in with MD, she started to have L SI/ buttock pain and it goes down post thigh and into calf. She has some mild tingling in calf and and dorsal aspect of toes 2-4 . Pain is pretty much every day. It bothers her when bending, squatting, sitting on soft surfaces, running. She can walk without pain. Treatment Goals Patient/Caregiver Goals be able to go downhill w/o pain, be able to return to running (5-7 miles a day on sat/sun) PT-OP-C Subjective Start: 03/12/22 17:44 Freq: Status: Active Protocol: Document 05/23/22 12:18 SP (Rec: 05/23/22 13:45 SP [id number]) OP-PT Subjective Patient Comments Patient Comments Pt reports felt better ROM/ stretch after last tx on LLE. Pt stated pain L lateral hip and into ITB today, thinks maybe all over sleeping last night, does use pillows. PT-OP-D Balance Start: 03/12/22 17:44 Freq: Status: Active Protocol: Document 03/13/22 15:21 [facility] (Rec: 03/13/22 16:05 [facility] [id number]) Balance Tests Single Limb Standing Single Limb- Right >30 sec Single Limb- Left >30 sec PT-OP-F Manual Assessment Start: 03/12/22 17:44 Freq: Status: Active Protocol: Document 03/13/22 15:21 [facility] (Rec: 03/13/22 16:05 [facility] [id number]) Manual Assessments Soft Tissue Assessment Soft Tissue Mobility Assessment tightness L ITB, HS, calf, adductors,glutes L jt line med tenderness Joint Mobility Assessment Joint Mobility Assessment minor elvation of L pelvis. equal greater trochanter PT-OP-G Mobility & Gait Start: 03/12/22 17:44 Freq: Status: Active Protocol: Document 03/13/22 15:21 [facility] (Rec: 03/13/22 16:05 [facility] [id number]) OP Gait Assessment Comments Gait Comments dec push off B, ext at lumbar spine PT-OP-J Posture/Palpation/Skin Start: 03/12/22 17:44 Freq: Status: Active Protocol: Document 03/13/22 15:21 [facility] (Rec: 03/13/22 16:05 [facility] [id number]) Posture Evaluation Martínez Postural Classification System Martínez Postural Classifications Posterior/Posterior Vertebral Compression Test 2 Lumbar Protective Mechanism Left AP 3 Lumbar Protective Mechanism Right AP 1 Lumbar Protective Mechanism Left PA 3 Lumbar Protective Mechanism Right PA 3 PT-OP-K Range of Motion Start: 03/12/22 17:44 Freq: Status: Active Protocol: Document 03/13/22 15:21 [facility] (Rec: 03/13/22 16:05 [facility] [id number]) Hip Goniometric Range of Motion Hip Right Active Flexion w/Knee Flexed 119 Abduction 30 Left Active Flexion w/Knee Flexed 120 Abduction 29 Comments discomfort w/flex PT-OP-L Special Tests Start: 03/12/22 17:44 Freq: Status: Active Protocol: Document 03/13/22 15:21 [facility] (Rec: 03/13/22 16:05 [facility] [id number]) Special Tests Hip Special Tests Slump Test Results positive L SLR Test Results positive B for pain on L side Sushant Test Results positive B for tightness RF, iliacus & TFL L>R obers Test Results positive L Knee Special Tests Joshua Test Test Results neg ligamentous Test Results neg L Thessaly Test 20 Degrees Test Results neg L PT-OP-M Strength Start: 03/12/22 17:44 Freq: Status: Active Protocol: Document 03/13/22 15:21 [facility] (Rec: 03/13/22 16:05 [facility] [id number]) Hip Strength Hip Manual Muscle Testing Right Flexion (L2) 4+ Good+ Extension (S1) 4+ Good+ Abduction 5 Normal Adduction 4+ Good+ External Rotation 5 Normal Internal Rotation 5 Normal Comments pain in L SI w/MMT Left Flexion (L2) 4+ Good+ Extension (S1) 4- Good- Abduction 4- Good- Adduction 4+ Good+ External Rotation 4+ Good+ Internal Rotation 4+ Good+ Knee Strength Knee Manual Muscle Testing Right Flexion (S2) 5 Normal Left Flexion (S2) 4 Good Extension (L3) 5 Normal Ankle/Foot Strength Ankle and Foot Manual Muscle Testing Right Dorsiflexion (L4) 5 Normal Plantarflexion (S1) 5 Normal Left Dorsiflexion (L4) 5 Normal Plantarflexion (S1) 5 Normal Comments 20 heel raises B PT-OP-Q Treatments Start: 03/12/22 17:44 Freq: Status: Active Protocol: Document 05/23/22 12:18 SP (Rec: 05/23/22 13:45 SP [id number]) Therapeutic Exercises Prone Exercises plank Prone Exercise Name forearm and feet Side bilateral Reps/Minutes 60 sec Comments states getting easier Sidelying Exercises sidesplank Sidelying Exercise Name L forearm and R LE straight, L bent; R feet and forearm Side bilateral Reps/Minutes 65 sec on L, 60 sec on R Other Exercises foam roller Other Exercise Name added for self STMs: TS ext/ rolling; LEs: ITB, HS, calf Resistance full foam roller Reps/Minutes 5 min total Comments cues as needed for set up/ form, UE support rolling/ lateral see saw Manual Therapy Treatment Soft Tissue Mobilization calf Body Location L HS & calf Mobilization Type Instrument Assisted,Rolling, Strumming,Sustained Pressure Intensity/Depth Moderate Body Position Sitting Comments manual and use rolling pin, ball calf long sitting, w/HS stretch & APs piriformis Body Location L piriformis, glut medius, ITB Mobilization Type Instrument Assisted,Strumming, Sustained Pressure Intensity/Depth Moderate Body Position Sidelying Comments manual, instruction and hip abd FM clam PT-OP-T Assessment and Plan Start: 03/12/22 17:44 Freq: Status: Active Protocol: Document 05/23/22 12:18 SP (Rec: 05/23/22 13:45 SP [id number]) Physical Therapy Assessment Goals sitting Motion Picture Equipment Supervisor Goal (LTG) pt will be able to sit on any surface w/o inc pain 04/20/22: progressing: harder surfaces ok mroe tolerance, softer surfaces couch ok for 30 min before pain. Finds if sit edge much better. LTG Duration 06/13 progressin04/20/22 VCT Motion Picture Equipment Supervisor Goal (LTG) Pt will score at least 4/5 to show improved postural stabiltiy. LTG Duration 06/13/22 strengt Short Term Goal (STG) Pt will be indep w/HEP STG Duration 05/05/22 Group Home Goal (LTG) Pt will score at least 4/5 on LPM and 5/5 on BLE MMT to show improved stabiltiy to dec pain in LE and knee LTG Duration 06/13 activities Short Term Goal (STG) Pt will be able to walk downhill during hikes w/o pain STG Duration 04/22/22 Motion Picture Equipment Supervisor Goal (LTG) Pt will be able to return to running on the weekends w/o hip, leg or knee pain. LTG Duration 06/13/22 Assessment Summary Assessment Pt good response to manual and good form post demonstration given and self performed. Pt was able to hold up to 60 sec during planks this tx with no report pain. Pt reported R leg alot better end tx than when arrived, no pain scale rating given. Physical Therapy Plan Frequency and Duration Frequency of Treatment 1-2x/wk Duration of treatment (weeks) 12 Plan of Care Start Date 03/13/22 Plan of Care End Date 06/13/22 Therapeutic Interventions Therapeutic Interventions Aquatic Therapy,Balance Training,Gait Training,Home Exercise Program,Joint Mobilizations,Manual Therapy, Neuromuscular Re-education, Patient/Caregiver Education, Self-Care/Home Management,Soft Tissue Mobilization,Taping, Therapeutic Activities, Therapeutic Exercises Modalities Cold Pack/Ice Massage,Electric Stimulation,Hot Packs, Infrared Therapy,Traction- Mechanical,Ultrasound Next Visit Focus/Plan Next Note Type Treatment Note Next Visit Plan Continue hip hikes glut med, SL RDL next tx. POC: manual to hip and LE; advance hip/core stability
--- NOTE | 2022-05-30 13:00 | PT.OTN ---
Current Diagnoses Radiculopathy, site unspecified (05/30/22) Low back pain, unspecified (05/30/22) Physical Therapy Treatment Note PT-OP-A Visit Information Start: 03/12/22 17:44 Freq: Status: Active Protocol: Document 05/30/22 12:19 SP (Rec: 05/30/22 13:25 SP [id number]) Out-Patient Physical Therapy Visit Information Visit Information Visit Type Treatment Note Visit Note KELBY Hay provided manual STMs with education on self application with pt while under direct supervision and guidence as needed from PUBLICITY AGENT Glenda. Visit Start Time 12:19 Visit Stop Time 13:00 Total Visit Minutes 41 Visit Number 11 Number of PUBLICITY AGENT Visits 2 PT-OP-B Current Condition Start: 03/12/22 17:44 Freq: Status: Active Protocol: Document 03/13/22 15:21 [facility] (Rec: 03/13/22 16:05 [facility] [id number]) Current Condition History of Current Condition Onset Date September Current Complaints L med knee pain, L back to post leg History of Current Condition In September, L knee started bothering her while running. Had to wait til January to see MD . When got in with MD, she started to have L SI/ buttock pain and it goes down post thigh and into calf. She has some mild tingling in calf and and dorsal aspect of toes 2-4 . Pain is pretty much every day. It bothers her when bending, squatting, sitting on soft surfaces, running. She can walk without pain. Treatment Goals Patient/Caregiver Goals be able to go downhill w/o pain, be able to return to running (5-7 miles a day on sat/sun) PT-OP-C Subjective Start: 03/12/22 17:44 Freq: Status: Active Protocol: Document 05/30/22 12:19 SP (Rec: 05/30/22 13:25 SP [id number]) OP-PT Subjective Patient Comments Patient Comments Pt reports tingling down lateral L thigh little in am only and disippates as day goes on. The stretching and self STMs along with asking for assist over posterior glut med and lateral sacrum that goes down posterior neck femur. Does self STMs ball on wall over there's area with good response. Good response to HS neural glides in am. She reports less discomfort over posterolateral hip jt line. She has been able to start jogging on TM walk 10 min, jog 2 min in bursts with no L knee pain. PT-OP-D Balance Start: 03/12/22 17:44 Freq: Status: Active Protocol: Document 03/13/22 15:21 [facility] (Rec: 03/13/22 16:05 [facility] [id number]) Balance Tests Single Limb Standing Single Limb- Right >30 sec Single Limb- Left >30 sec PT-OP-F Manual Assessment Start: 03/12/22 17:44 Freq: Status: Active Protocol: Document 03/13/22 15:21 [facility] (Rec: 03/13/22 16:05 [facility] [id number]) Manual Assessments Soft Tissue Assessment Soft Tissue Mobility Assessment tightness L ITB, HS, calf, adductors,glutes L jt line med tenderness Joint Mobility Assessment Joint Mobility Assessment minor elvation of L pelvis. equal greater trochanter PT-OP-G Mobility & Gait Start: 03/12/22 17:44 Freq: Status: Active Protocol: Document 03/13/22 15:21 [facility] (Rec: 03/13/22 16:05 [facility] [id number]) OP Gait Assessment Comments Gait Comments dec push off B, ext at lumbar spine PT-OP-J Posture/Palpation/Skin Start: 03/12/22 17:44 Freq: Status: Active Protocol: Document 03/13/22 15:21 [facility] (Rec: 03/13/22 16:05 [facility] [id number]) Posture Evaluation Martínez Postural Classification System Martínez Postural Classifications Posterior/Posterior Vertebral Compression Test 2 Lumbar Protective Mechanism Left AP 3 Lumbar Protective Mechanism Right AP 1 Lumbar Protective Mechanism Left PA 3 Lumbar Protective Mechanism Right PA 3 PT-OP-K Range of Motion Start: 03/12/22 17:44 Freq: Status: Active Protocol: Document 03/13/22 15:21 [facility] (Rec: 03/13/22 16:05 [facility] [id number]) Hip Goniometric Range of Motion Hip Right Active Flexion w/Knee Flexed 119 Abduction 30 Left Active Flexion w/Knee Flexed 120 Abduction 29 Comments discomfort w/flex PT-OP-L Special Tests Start: 03/12/22 17:44 Freq: Status: Active Protocol: Document 03/13/22 15:21 [facility] (Rec: 03/13/22 16:05 [facility] [id number]) Special Tests Hip Special Tests Slump Test Results positive L SLR Test Results positive B for pain on L side Sushant Test Results positive B for tightness RF, iliacus & TFL L>R obers Test Results positive L Knee Special Tests Joshua Test Test Results neg ligamentous Test Results neg L Thessaly Test 20 Degrees Test Results neg L PT-OP-M Strength Start: 03/12/22 17:44 Freq: Status: Active Protocol: Document 03/13/22 15:21 [facility] (Rec: 03/13/22 16:05 [facility] [id number]) Hip Strength Hip Manual Muscle Testing Right Flexion (L2) 4+ Good+ Extension (S1) 4+ Good+ Abduction 5 Normal Adduction 4+ Good+ External Rotation 5 Normal Internal Rotation 5 Normal Comments pain in L SI w/MMT Left Flexion (L2) 4+ Good+ Extension (S1) 4- Good- Abduction 4- Good- Adduction 4+ Good+ External Rotation 4+ Good+ Internal Rotation 4+ Good+ Knee Strength Knee Manual Muscle Testing Right Flexion (S2) 5 Normal Left Flexion (S2) 4 Good Extension (L3) 5 Normal Ankle/Foot Strength Ankle and Foot Manual Muscle Testing Right Dorsiflexion (L4) 5 Normal Plantarflexion (S1) 5 Normal Left Dorsiflexion (L4) 5 Normal Plantarflexion (S1) 5 Normal Comments 20 heel raises B PT-OP-Q Treatments Start: 03/12/22 17:44 Freq: Status: Active Protocol: Document 05/30/22 12:19 SP (Rec: 05/30/22 13:25 SP [id number]) Therapeutic Exercises Supine Exercises ITB stretch Supine Exercise Name added to HEP Side left Equipment Used w/ strap Reps/Minutes 30 Comments good feedback stretch, cued neutral ankle decrease calf stretch to allow IT stretch Supine Exercise Name 1. piriformis 2 figure 4 3. active HS w/active DF/IV Side bilateral Reps/Minutes 1&2 .30 sec ea 3. 10 sec x2 Comments 3. added peroneal n glide to sciatic with good response Standing Exercises 4 way hip Standing Exercise Name hip ext/ABD/ADD/hip& knee flexion>reverse lunge Side bilateral Resistance TB #1 Equipment Used contact chair back as needed for stability Reps/Minutes x10 each direction Comments cued core, COG over MELINA, slow pacing con/eccentric RDL Standing Exercise Name Single leg: verbal review did get to 05/30 Side bilateral Reps/Minutes 10 Comments cued for no twist band walk Standing Exercise Name verbal review continue as HEP- didn't get to 05/30 Side bilateral Resistance TB #2 loop at ankles Equipment Used fwd,bkd, lateral Reps/Minutes 20 ft x2 laps Comments cue no SB, aware book on head and core Manual Therapy Treatment Soft Tissue Mobilization piriformis Body Location L piriformis, glut medius, ITB Mobilization Type Instrument Assisted,Strumming, Sustained Pressure Intensity/Depth Moderate Body Position Sidelying Comments manual hip abd FM clam and rolling pin to ITB, review instruction self application and PT-OP-T Assessment and Plan Start: 03/12/22 17:44 Freq: Status: Active Protocol: Document 05/30/22 12:19 SP (Rec: 05/30/22 13:25 SP [id number]) Physical Therapy Assessment Goals sitting Fertilizing Machine Operator Goal (LTG) pt will be able to sit on any surface w/o inc pain 04/20/22: progressing: harder surfaces ok mroe tolerance, softer surfaces couch ok for 30 min before pain. Finds if sit edge much better. 05/30/22: better, able to sit deeper in seat at meeting but limited time due to thought might start hurting so unsure how long would have lasted before need to shift position. LTG Duration 06/13 progressin05/30/22 VCT Snf Goal (LTG) Pt will score at least 4/5 to show improved postural stabiltiy. LTG Duration 06/13/22 strengt Short Term Goal (STG) Pt will be indep w/HEP STG Duration 05/05/22 Fertilizing Machine Operator Goal (LTG) Pt will score at least 4/5 on LPM and 5/5 on BLE MMT to show improved stabiltiy to dec pain in LE and knee LTG Duration 06/13 activities Short Term Goal (STG) Pt will be able to walk downhill during hikes w/o pain 05/30/22 hasn't hiked so will try over the weekend. STG Duration 04/22/22 uncertain Fertilizing Machine Operator Goal (LTG) Pt will be able to return to running on the weekends w/o hip, leg or knee pain. 05/30/22: progressing: able to light jog 2 min at time now. LTG Duration 06/13/22 progressin05/30/22 Assessment Summary Assessment Pt good response to manual and stretching decreased tightness over posterolateral L hip. Added to HEP: SLS 4 way hip with good feedback response hip effort and balance combination. Recommended to continue band walk, SL RDL at home and assess pain on hikes and jogging before next tx. Physical Therapy Plan Frequency and Duration Frequency of Treatment 1-2x/wk Duration of treatment (weeks) 12 Plan of Care Start Date 03/13/22 Plan of Care End Date 06/13/22 Therapeutic Interventions Therapeutic Interventions Aquatic Therapy,Balance Training,Gait Training,Home Exercise Program,Joint Mobilizations,Manual Therapy, Neuromuscular Re-education, Patient/Caregiver Education, Self-Care/Home Management,Soft Tissue Mobilization,Taping, Therapeutic Activities, Therapeutic Exercises Modalities Cold Pack/Ice Massage,Electric Stimulation,Hot Packs, Infrared Therapy,Traction- Mechanical,Ultrasound Next Visit Focus/Plan Next Note Type Treatment Note Next Visit Plan REcheck: 4 way hip, hip hikes glut med, SL RDL, ask goal feedback hikes and jogging. POC: manual to hip and LE; advance hip/core stability
--- NOTE | 2022-06-06 14:28 | PT.OTN ---
Current Diagnoses Radiculopathy, site unspecified (06/06/22) Low back pain, unspecified (06/06/22) Physical Therapy Treatment Note PT-OP-A Visit Information Start: 03/12/22 17:44 Freq: Status: Active Protocol: Document 06/06/22 13:48 TS (Rec: 06/06/22 16:48 TS [id number]) Out-Patient Physical Therapy Visit Information Visit Information Visit Type Treatment Note Visit Note KELBY Waters lead treatment under the supervision of CHE Doshi. Visit Start Time 13:50 Visit Stop Time 14:28 Total Visit Minutes 38 Visit Number 12 Number of RETAIL LOSS PREVENTION OFFICER Visits 3 PT-OP-B Current Condition Start: 03/12/22 17:44 Freq: Status: Active Protocol: Document 03/13/22 15:21 [facility] (Rec: 03/13/22 16:05 [facility] [id number]) Current Condition History of Current Condition Onset Date September Current Complaints L med knee pain, L back to post leg History of Current Condition In September, L knee started bothering her while running. Had to wait til January to see MD . When got in with MD, she started to have L SI/ buttock pain and it goes down post thigh and into calf. She has some mild tingling in calf and and dorsal aspect of toes 2-4 . Pain is pretty much every day. It bothers her when bending, squatting, sitting on soft surfaces, running. She can walk without pain. Treatment Goals Patient/Caregiver Goals be able to go downhill w/o pain, be able to return to running (5-7 miles a day on sat/sun) PT-OP-C Subjective Start: 03/12/22 17:44 Freq: Status: Active Protocol: Document 06/06/22 13:48 TS (Rec: 06/06/22 16:48 TS [id number]) OP-PT Subjective Patient Comments Patient Comments Pt reports her LLE has been feeling better and thinks PT is helping. She continues to do incline treadmill at home. Tingling has been very minimal lately and seems to be lessening. PT-OP-D Balance Start: 03/12/22 17:44 Freq: Status: Active Protocol: Document 03/13/22 15:21 [facility] (Rec: 03/13/22 16:05 [facility] [id number]) Balance Tests Single Limb Standing Single Limb- Right >30 sec Single Limb- Left >30 sec PT-OP-F Manual Assessment Start: 03/12/22 17:44 Freq: Status: Active Protocol: Document 03/13/22 15:21 [facility] (Rec: 03/13/22 16:05 [facility] [id number]) Manual Assessments Soft Tissue Assessment Soft Tissue Mobility Assessment tightness L ITB, HS, calf, adductors,glutes L jt line med tenderness Joint Mobility Assessment Joint Mobility Assessment minor elvation of L pelvis. equal greater trochanter PT-OP-G Mobility & Gait Start: 03/12/22 17:44 Freq: Status: Active Protocol: Document 03/13/22 15:21 [facility] (Rec: 03/13/22 16:05 [facility] [id number]) OP Gait Assessment Comments Gait Comments dec push off B, ext at lumbar spine PT-OP-J Posture/Palpation/Skin Start: 03/12/22 17:44 Freq: Status: Active Protocol: Document 03/13/22 15:21 [facility] (Rec: 03/13/22 16:05 [facility] [id number]) Posture Evaluation Martínez Postural Classification System Martínez Postural Classifications Posterior/Posterior Vertebral Compression Test 2 Lumbar Protective Mechanism Left AP 3 Lumbar Protective Mechanism Right AP 1 Lumbar Protective Mechanism Left PA 3 Lumbar Protective Mechanism Right PA 3 PT-OP-K Range of Motion Start: 03/12/22 17:44 Freq: Status: Active Protocol: Document 03/13/22 15:21 [facility] (Rec: 03/13/22 16:05 [facility] [id number]) Hip Goniometric Range of Motion Hip Right Active Flexion w/Knee Flexed 119 Abduction 30 Left Active Flexion w/Knee Flexed 120 Abduction 29 Comments discomfort w/flex PT-OP-L Special Tests Start: 03/12/22 17:44 Freq: Status: Active Protocol: Document 03/13/22 15:21 [facility] (Rec: 03/13/22 16:05 [facility] [id number]) Special Tests Hip Special Tests Slump Test Results positive L SLR Test Results positive B for pain on L side Sushant Test Results positive B for tightness RF, iliacus & TFL L>R obers Test Results positive L Knee Special Tests Joshua Test Test Results neg ligamentous Test Results neg L Thessaly Test 20 Degrees Test Results neg L PT-OP-M Strength Start: 03/12/22 17:44 Freq: Status: Active Protocol: Document 03/13/22 15:21 [facility] (Rec: 03/13/22 16:05 [facility] [id number]) Hip Strength Hip Manual Muscle Testing Right Flexion (L2) 4+ Good+ Extension (S1) 4+ Good+ Abduction 5 Normal Adduction 4+ Good+ External Rotation 5 Normal Internal Rotation 5 Normal Comments pain in L SI w/MMT Left Flexion (L2) 4+ Good+ Extension (S1) 4- Good- Abduction 4- Good- Adduction 4+ Good+ External Rotation 4+ Good+ Internal Rotation 4+ Good+ Knee Strength Knee Manual Muscle Testing Right Flexion (S2) 5 Normal Left Flexion (S2) 4 Good Extension (L3) 5 Normal Ankle/Foot Strength Ankle and Foot Manual Muscle Testing Right Dorsiflexion (L4) 5 Normal Plantarflexion (S1) 5 Normal Left Dorsiflexion (L4) 5 Normal Plantarflexion (S1) 5 Normal Comments 20 heel raises B PT-OP-Q Treatments Start: 03/12/22 17:44 Freq: Status: Active Protocol: Document 06/06/22 13:48 TS (Rec: 06/06/22 16:48 TS [id number]) Therapeutic Exercises Prone Exercises plank Prone Exercise Name forearm and feet Side bilateral Reps/Minutes 60 sec Comments Cues for head neutral, chin tuck Sidelying Exercises sidesplank Sidelying Exercise Name L forearm and R&L LE straight, R feet and forearm Side bilateral Reps/Minutes 60 sec on L, 54 sec on R Comments Cues for glute and core activation to support back. Standing Exercises Single Heel Raise Side bilateral Equipment Used 4 step Reps/Minutes 1x10 Comments Handrail support for balance 4 way hip Standing Exercise Name hip ext/ABD/ADD/hip& knee flexion>reverse lunge Side bilateral Resistance TB lvl Equipment Used contact chair back as needed for stability Reps/Minutes x10 each direction Comments Good carry of ex, required cues for adduction RDL Standing Exercise Name Single leg: verbal review did get to 11/9 Side bilateral Reps/Minutes 10 Comments Cued for opposite arm of leg down glut med hip lift Standing Exercise Name hip hike on step Side bilateral Reps/Minutes 2x10 Comments Good carryover and form band walk Side bilateral Resistance TB #3 loop at ankles Equipment Used lateral Reps/Minutes 10 ft x6 laps Comments Cue to point toe straight, soft knee PT-OP-T Assessment and Plan Start: 03/12/22 17:44 Freq: Status: Active Protocol: Document 06/06/22 13:48 TS (Rec: 06/06/22 16:48 TS [id number]) Physical Therapy Assessment Goals sitting Jail Goal (LTG) pt will be able to sit on any surface w/o inc pain 04/20/22: progressing: harder surfaces ok mroe tolerance, softer surfaces couch ok for 30 min before pain. Finds if sit edge much better. 05/30/22: better, able to sit deeper in seat at meeting but limited time due to thought might start hurting so unsure how long would have lasted before need to shift position. LTG Duration 06/13 progressin05/30/22 VCT Recreation Facility Manager Goal (LTG) Pt will score at least 4/5 to show improved postural stabiltiy. LTG Duration 06/13/22 strengt Short Term Goal (STG) Pt will be indep w/HEP STG Duration 05/05/22 Recreation Facility Manager Goal (LTG) Pt will score at least 4/5 on LPM and 5/5 on BLE MMT to show improved stabiltiy to dec pain in LE and knee LTG Duration 06/13 activities Short Term Goal (STG) Pt will be able to walk downhill during hikes w/o pain 05/30/22 hasn't hiked so will try over the weekend. STG Duration 04/22/22 uncertain Recreation Facility Manager Goal (LTG) Pt will be able to return to running on the weekends w/o hip, leg or knee pain. 05/30/22: progressing: able to light jog 2 min at time now. LTG Duration 06/13/22 progressin05/30/22 Assessment Summary Assessment Pt progressed her side stepping ex to lvl 3 tb this session. She progressed her L modified plank to non-modified , no reports of increased pain . Pt demonstrates good carryover of her HEP. Pt feels she has made improvements and will assess if she is ready to be independent with her HEP . Physical Therapy Plan Frequency and Duration Frequency of Treatment 1-2x/wk Duration of treatment (weeks) 12 Plan of Care Start Date 03/13/22 Plan of Care End Date 06/13/22 Therapeutic Interventions Therapeutic Interventions Aquatic Therapy,Balance Training,Gait Training,Home Exercise Program,Joint Mobilizations,Manual Therapy, Neuromuscular Re-education, Patient/Caregiver Education, Self-Care/Home Management,Soft Tissue Mobilization,Taping, Therapeutic Activities, Therapeutic Exercises Modalities Cold Pack/Ice Massage,Electric Stimulation,Hot Packs, Infrared Therapy,Traction- Mechanical,Ultrasound Next Visit Focus/Plan Next Note Type Treatment Note Next Visit Plan Assess pts running time, hip pain, sitting tolerance.
--- NOTE | 2022-06-12 12:43 | PT-OP ANOTE ---
[id number] reference to call to [employer]. Call to [employer] today with reporting pt progress. Awaiting results and should hear in 24 hours.
--- NOTE | 2022-06-13 14:49 | PT-OP ANOTE ---
Addendum entered and electronically signed by Glenda Matos, DRILL INSTRUCTOR 06/13/22 15:16: Pt not seen for PT due to no authorization. She will contact insurance to see if/when will be authorized and if not is there anything from therapy standpoint to provide. Has next appt 06/20 with PT. Will need update POC next tx, expires today 06/13/22. Original Note: Pt arrived for appointment today, waiting for authorization for continued appointments, educated pt she was unaware. Suggest pt contact insurance for further authorization. Pt reported flare up L glute and L hamstring on arrival after doing more running after last treatment. POC expires to day 06/13/22, is scheduled with PT 06/20/22, will need to update POC when authorized.
--- NOTE | 2022-06-20 18:34 | PT.OTN ---
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 Had to wait til January to see MD . When got in with MD, she started to have L SI/ buttock pain and it goes down post thigh and into calf. She has some mild tingling in calf and and dorsal aspect of toes 2-4 . Pain is pretty much every day. It bothers her when bending, squatting, sitting on soft surfaces, running. She can walk without pain. Treatment Goals Patient/Caregiver Goals be able to go downhill w/o pain, be able to return to running (5-7 miles a day on sat/sun) PT-OP-C Subjective Start: 03/12/22 17:44 Freq: Status: Active Protocol: Document 06/20/22 13:01 [facility] (Rec: 06/20/22 14:36 [facility] [id number]) OP-PT Subjective Patient Comments Patient Comments Pt reports when she wakes up, she has pain into buttocks and down L HS and calf and into toes. She has some tingling also. this has been the past week. Prior to this, it was better. She is compliant w/ stretches and they help. She hasn't been exercising ( running/walking/hills). She felt fine until Mon/Tues last week. Morning and night are the worst. She is worried running may have started it. Pain now is worse than when seh orginally started d/t pain being so bad. Patient Reported Progress Worse PT-OP-D Balance Start: 03/12/22 17:44 Freq: Status: Active Protocol: Document 03/13/22 15:21 [facility] (Rec: 03/13/22 16:05 [facility] [id number]) Balance Tests Single Limb Standing Single Limb- Right >30 sec Single Limb- Left >30 sec PT-OP-F Manual Assessment Start: 03/12/22 17:44 Freq: Status: Active Protocol: Document 03/13/22 15:21 [facility] (Rec: 03/13/22 16:05 [facility] [id number]) Manual Assessments Soft Tissue Assessment Soft Tissue Mobility Assessment tightness L ITB, HS, calf, adductors,glutes L jt line med tenderness Joint Mobility Assessment Joint Mobility Assessment minor elvation of L pelvis. equal greater trochanter PT-OP-G Mobility & Gait Start: 03/12/22 17:44 Freq: Status: Active Protocol: Document 03/13/22 15:21 [facility] (Rec: 03/13/22 16:05 [facility] [id number]) OP Gait Assessment Comments Gait Comments dec push off B, ext at lumbar spine PT-OP-J Posture/Palpation/Skin Start: 03/12/22 17:44 Freq: Status: Active Protocol: Document 03/13/22 15:21 [facility] (Rec: 03/13/22 16:05 [facility] [id number]) Posture Evaluation Martínez Postural Classification System Martínez Postural Classifications Posterior/Posterior Vertebral Compression Test 2 Lumbar Protective Mechanism Left AP 3 Lumbar Protective Mechanism Right AP 1 Lumbar Protective Mechanism Left PA 3 Lumbar Protective Mechanism Right PA 3 PT-OP-K Range of Motion Start: 03/12/22 17:44 Freq: Status: Active Protocol: Document 03/13/22 15:21 [facility] (Rec: 03/13/22 16:05 [facility] [id number]) Hip Goniometric Range of Motion Hip Right Active Flexion w/Knee Flexed 119 Abduction 30 Left Active Flexion w/Knee Flexed 120 Abduction 29 Comments discomfort w/flex PT-OP-L Special Tests Start: 03/12/22 17:44 Freq: Status: Active Protocol: Document 03/13/22 15:21 [facility] (Rec: 03/13/22 16:05 [facility] [id number]) Special Tests Hip Special Tests Slump Test Results positive L SLR Test Results positive B for pain on L side Sushant Test Results positive B for tightness RF, iliacus & TFL L>R obers Test Results positive L Knee Special Tests Joshua Test Test Results neg ligamentous Test Results neg L Thessaly Test 20 Degrees Test Results neg L PT-OP-M Strength Start: 03/12/22 17:44 Freq: Status: Active Protocol: Document 06/20/22 13:01 [facility] (Rec: 06/20/22 14:36 [facility] [id number]) Hip Strength Hip Manual Muscle Testing Right Flexion (L2) 5 Normal Extension (S1) 4 Good Abduction 5 Normal Adduction 4+ Good+ External Rotation 5 Normal Internal Rotation 5 Normal Left Flexion (L2) 4 Good Extension (S1) 3+ Fair+ Abduction 4- Good- Adduction 4+ Good+ External Rotation 4+ Good+ Internal Rotation 5 Normal Comments positive L SLUMP; pain w/ER, abd Knee Strength Knee Manual Muscle Testing Right Flexion (S2) 5 Normal Extension (L3) 5 Normal Left Flexion (S2) 4 Good Extension (L3) 5 Normal Comments pain w/flex Ankle/Foot Strength Ankle and Foot Manual Muscle Testing Right Dorsiflexion (L4) 5 Normal Plantarflexion (S1) 5 Normal Left Dorsiflexion (L4) 5 Normal Plantarflexion (S1) 5 Normal Comments 20 heel raises B; pain in L buttocks w/L PF & tingling inc PT-OP-Q Treatments Start: 03/12/22 17:44 Freq: Status: Active Protocol: Document 06/20/22 13:01 [facility] (Rec: 06/20/22 14:36 [facility] [id number]) Manual Therapy Treatment Soft Tissue Mobilization QL Body Location L QL/ES Mobilization Type Rolling,Strumming Intensity/Depth Moderate Body Position Sidelying Comments w/ant elevation/post dep piriformis Body Location L piriformis, glut medius, ITB Mobilization Type Instrument Assisted,Strumming, Sustained Pressure Intensity/Depth Moderate Body Position Sidelying Comments manual hip abd FM clam and rolling pin to ITB, review instruction self application and Joint Mobilizations lumbar Reps/Duration FM Comments L4-5, L5-S1 gap L5 transverse L L5 UPA L L4 UPA R sacrum Joint caudal L FM hip Joint L Direction abd& on axis ER FM Neuro Re-Education Treatment Other Activities PNF Comments 1. rhythmic intiation L ant elevation & post dep 2. sustained holds L ant elevation & post dep 3. COI L ant elevation & post dep progressed to w/LE pattern 4. isotonic reversals L ant elevation/post dep PT-OP-T Assessment and Plan Start: 03/12/22 17:44 Freq: Status: Active Protocol: Document 06/20/22 13:01 [facility] (Rec: 06/20/22 14:36 [facility] [id number]) Physical Therapy Assessment Goals sitting Underwriting Assistant Goal (LTG) pt will be able to sit on any surface w/o inc pain 04/20/22: progressing: harder surfaces ok mroe tolerance, softer surfaces couch ok for 30 min before pain. Finds if sit edge much better. 05/30/22: better, able to sit deeper in seat at meeting but limited time due to thought might start hurting so unsure how long would have lasted before need to shift position. 06/20-able to sit no longer than 45 min w/shifting and stretching needed during this time. LTG Duration 08/23 VCT Mcfp Goal (LTG) Pt will score at least 4/5 to show improved postural stabiltiy. LTG Duration 08/22/22 strengt Short Term Goal (STG) Pt will be indep w/HEP STG Duration advancing as able Underwriting Assistant Goal (LTG) Pt will score at least 4/5 on LPM and 5/5 on BLE MMT to show improved stabiltiy to dec pain in LE and knee 06/20-limited d/t pain today LTG Duration 08/29 activities Short Term Goal (STG) Pt will be able to walk downhill during hikes w/o pain 05/30/22 hasn't hiked so will try over the weekend. 06/20-can uphill on treadmill but hasn't done any downhill STG Duration 07/22 Underwriting Assistant Goal (LTG) Pt will be able to return to running on the weekends w/o hip, leg or knee pain. 05/30/22: progressing: able to light jog 2 min at time now. 06/20-thinks running may have inc pain LTG Duration 2 Assessment Summary Assessment Pt had been making excellent progress with PT and felt almost ready for DC until 8-9 days ago when pain suddenly increased to way worse than when she started PT w/04/30 pain in AM and pt reporting pain with sitting and even w/ ADLs. She is unsure if this was from trying running this weekend or something else, but this has increased her symptoms down her leg into her post thigh, calf and foot with increased pain and tingling. Pt had +Slump test today that had dec in symptoms w/manual and pt report of dec pain after session along improved post dep/ant elevation. Pt would benefit from cont PT to dec pain and imrpove stability so she can sit as needed for work, return to physical activity w/o inc pain and be able to do ADLs w/ o inc pain. Physical Therapy Plan Frequency and Duration Frequency of Treatment 1-2x/wk Duration of treatment (weeks) 10 Plan of Care Start Date 06/20/22 Plan of Care End Date 08/29/22 Therapeutic Interventions Therapeutic Interventions Aquatic Therapy,Balance Training,Gait Training,Home Exercise Program,Joint Mobilizations,Manual Therapy, Neuromuscular Re-education, Patient/Caregiver Education, Self-Care/Home Management,Soft Tissue Mobilization,Taping, Therapeutic Activities, Therapeutic Exercises Modalities Cold Pack/Ice Massage,Electric Stimulation,Hot Packs, Infrared Therapy,Traction- Mechanical,Ultrasound Next Visit Focus/Plan Next Note Type Treatment Note Next Visit Plan Dec LE symptoms w/manual
--- NOTE | 2022-06-20 18:34 | PT.OPPOC ---
Physical, Occupational & Speech Therapy At [facility] Current Diagnoses Radiculopathy, site unspecified (06/20/22) Low back pain, unspecified (06/20/22) Visit Care Team Role Provider Type Kelly Pabon MD Attending Provider Physician Primary Care Provider Referring Provider Specialty: Family Practice Address: [address] [place] [address], [place], [address] Email: [email or web address] Plan Of Care PT-OP-T Assessment and Plan Start: 03/12/22 17:44 Freq: Status: Active Protocol: Document 06/20/22 13:01 [facility] (Rec: 06/20/22 14:36 [facility] [id number]) Physical Therapy Assessment Goals sitting Shelter Goal (LTG) pt will be able to sit on any surface w/o inc pain 04/20/22: progressing: harder surfaces ok mroe tolerance, softer surfaces couch ok for 30 min before pain. Finds if sit edge much better. 05/30/22: better, able to sit deeper in seat at meeting but limited time due to thought might start hurting so unsure how long would have lasted before need to shift position. 06/20-able to sit no longer than 45 min w/shifting and stretching needed during this time. LTG Duration 08/23 VCT Shelter Goal (LTG) Pt will score at least 4/5 to show improved postural stabiltiy. LTG Duration 08/22/22 strengt Short Term Goal (STG) Pt will be indep w/HEP STG Duration advancing as able Shelter Goal (LTG) Pt will score at least 4/5 on LPM and 5/5 on BLE MMT to show improved stabiltiy to dec pain in LE and knee 06/20-limited d/t pain today LTG Duration 08/29 activities Short Term Goal (STG) Pt will be able to walk downhill during hikes w/o pain 05/30/22 hasn't hiked so will try over the weekend. 06/20-can uphill on treadmill but hasn't done any downhill STG Duration 07/22 Shelter Goal (LTG) Pt will be able to return to running on the weekends w/o hip, leg or knee pain. 05/30/22: progressing: able to light jog 2 min at time now. 06/20-thinks running may have inc pain LTG Duration 08/29 Assessment Summary Assessment Pt had been making excellent progress with PT and felt almost ready for DC until 8-9 days ago when pain suddenly increased to way worse than when she started PT w/04/30 pain in AM and pt reporting pain with sitting and even w/ ADLs. She is unsure if this was from trying running this weekend or something else, but this has increased her symptoms down her leg into her post thigh, calf and foot with increased pain and tingling. Pt had +Slump test today that had dec in symptoms w/manual and pt report of dec pain after session along improved post dep/ant elevation. Pt would benefit from cont PT to dec pain and imrpove stability so she can sit as needed for work, return to physical activity w/o inc pain and be able to do ADLs w/ o inc pain. Physical Therapy Plan Frequency and Duration Frequency of Treatment 1-2x/wk Duration of treatment (weeks) 10 Plan of Care Start Date 06/20/22 Plan of Care End Date 08/29/22 Therapeutic Interventions Therapeutic Interventions Aquatic Therapy,Balance Training,Gait Training,Home Exercise Program,Joint Mobilizations,Manual Therapy, Neuromuscular Re-education, Patient/Caregiver Education, Self-Care/Home Management,Soft Tissue Mobilization,Taping, Therapeutic Activities, Therapeutic Exercises Modalities Cold Pack/Ice Massage,Electric Stimulation,Hot Packs, Infrared Therapy,Traction- Mechanical,Ultrasound Next Visit Focus/Plan Next Note Type Treatment Note Next Visit Plan Dec LE symptoms w/manual Plan of Care Dates Plan of Care Start Date 06/20/22 Plan of Care End Date 08/29/22 Electronically Signed by: Kelly Sheffield, PT 06/20/22 1916 If you are in agreement with this Plan of Care, please return a signed and dated copy. I have reviewed this Plan of Care and certify that the skilled therapy services above are required to meet the patient?s needs. Physician Signature Date Printed Name and Credentials Clinical Instructor Signature Printed Name and Credentials
--- NOTE | 2022-07-04 13:57 | PT.OTN ---
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 Had to wait til January to see MD . When got in with MD, she started to have L SI/ buttock pain and it goes down post thigh and into calf. She has some mild tingling in calf and and dorsal aspect of toes 2-4 . Pain is pretty much every day. It bothers her when bending, squatting, sitting on soft surfaces, running. She can walk without pain. Treatment Goals Patient/Caregiver Goals be able to go downhill w/o pain, be able to return to running (5-7 miles a day on sat/sun) PT-OP-C Subjective Start: 03/12/22 17:44 Freq: Status: Active Protocol: Document 07/04/22 13:02 [facility] (Rec: 07/04/22 13:57 [facility] [id number]) OP-PT Subjective Patient Comments Patient Comments Pt is better since last visit but still worst in AMs and having pain in post leg and calf and L LB. Walked a lot on vacation w/o issues Patient Reported Progress Improving PT-OP-D Balance Start: 03/12/22 17:44 Freq: Status: Active Protocol: Document 03/13/22 15:21 [facility] (Rec: 03/13/22 16:05 [facility] [id number]) Balance Tests Single Limb Standing Single Limb- Right >30 sec Single Limb- Left >30 sec PT-OP-F Manual Assessment Start: 03/12/22 17:44 Freq: Status: Active Protocol: Document 03/13/22 15:21 [facility] (Rec: 03/13/22 16:05 [facility] [id number]) Manual Assessments Soft Tissue Assessment Soft Tissue Mobility Assessment tightness L ITB, HS, calf, adductors,glutes L jt line med tenderness Joint Mobility Assessment Joint Mobility Assessment minor elvation of L pelvis. equal greater trochanter PT-OP-G Mobility & Gait Start: 03/12/22 17:44 Freq: Status: Active Protocol: Document 03/13/22 15:21 [facility] (Rec: 03/13/22 16:05 [facility] [id number]) OP Gait Assessment Comments Gait Comments dec push off B, ext at lumbar spine PT-OP-J Posture/Palpation/Skin Start: 03/12/22 17:44 Freq: Status: Active Protocol: Document 03/13/22 15:21 [facility] (Rec: 03/13/22 16:05 [facility] [id number]) Posture Evaluation Martínez Postural Classification System Martínez Postural Classifications Posterior/Posterior Vertebral Compression Test 2 Lumbar Protective Mechanism Left AP 3 Lumbar Protective Mechanism Right AP 1 Lumbar Protective Mechanism Left PA 3 Lumbar Protective Mechanism Right PA 3 PT-OP-K Range of Motion Start: 03/12/22 17:44 Freq: Status: Active Protocol: Document 03/13/22 15:21 [facility] (Rec: 03/13/22 16:05 [facility] [id number]) Hip Goniometric Range of Motion Hip Right Active Flexion w/Knee Flexed 119 Abduction 30 Left Active Flexion w/Knee Flexed 120 Abduction 29 Comments discomfort w/flex PT-OP-L Special Tests Start: 03/12/22 17:44 Freq: Status: Active Protocol: Document 03/13/22 15:21 [facility] (Rec: 03/13/22 16:05 [facility] [id number]) Special Tests Hip Special Tests Slump Test Results positive L SLR Test Results positive B for pain on L side Sushant Test Results positive B for tightness RF, iliacus & TFL L>R obers Test Results positive L Knee Special Tests Joshua Test Test Results neg ligamentous Test Results neg L Thessaly Test 20 Degrees Test Results neg L PT-OP-M Strength Start: 03/12/22 17:44 Freq: Status: Active Protocol: Document 06/20/22 13:01 [facility] (Rec: 06/20/22 14:36 [facility] [id number]) Hip Strength Hip Manual Muscle Testing Right Flexion (L2) 5 Normal Extension (S1) 4 Good Abduction 5 Normal Adduction 4+ Good+ External Rotation 5 Normal Internal Rotation 5 Normal Left Flexion (L2) 4 Good Extension (S1) 3+ Fair+ Abduction 4- Good- Adduction 4+ Good+ External Rotation 4+ Good+ Internal Rotation 5 Normal Comments positive L SLUMP; pain w/ER, abd Knee Strength Knee Manual Muscle Testing Right Flexion (S2) 5 Normal Extension (L3) 5 Normal Left Flexion (S2) 4 Good Extension (L3) 5 Normal Comments pain w/flex Ankle/Foot Strength Ankle and Foot Manual Muscle Testing Right Dorsiflexion (L4) 5 Normal Plantarflexion (S1) 5 Normal Left Dorsiflexion (L4) 5 Normal Plantarflexion (S1) 5 Normal Comments 20 heel raises B; pain in L buttocks w/L PF & tingling inc PT-OP-Q Treatments Start: 03/12/22 17:44 Freq: Status: Active Protocol: Document 07/04/22 13:02 [facility] (Rec: 07/04/22 13:57 [facility] [id number]) Manual Therapy Treatment Soft Tissue Mobilization adductors Body Location L Mobilization Type Rolling Intensity/Depth Moderate Body Position Hooklying Comments w/hip ER Joint Mobilizations lumbar Comments L5-S1, L4-5, L2-3 gapping FM L5 R facet elevation FM innominate Joint L Direction abd FM hip Joint L Direction abd s/l& on axis IRhooklying FM Neuro Re-Education Treatment Other Activities PNF Comments 1. L ant eleavtion rhytmic initiation progressed to sustained holds 2. mass flex sustained holds progressed to COI L-mult reps 3. 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 Finds if sit edge much better. 05/30/22: better, able to sit deeper in seat at meeting but limited time due to thought might start hurting so unsure how long would have lasted before need to shift position. 06/20-able to sit no longer than 45 min w/shifting and stretching needed during this time. LTG Duration 08/23 VCT Longterm Goal (LTG) Pt will score at least 4/5 to show improved postural stabiltiy. LTG Duration 08/22/22 strengt Short Term Goal (STG) Pt will be indep w/HEP STG Duration advancing as able Longterm Goal (LTG) Pt will score at least 4/5 on LPM and 5/5 on BLE MMT to show improved stabiltiy to dec pain in LE and knee 06/20-limited d/t pain today LTG Duration 08/29 activities Short Term Goal (STG) Pt will be able to walk downhill during hikes w/o pain 05/30/22 hasn't hiked so will try over the weekend. 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 05/30/22: progressing: able to light jog 2 min at time now. 06/20-thinks running may have inc pain LTG Duration 08/29 Assessment Summary Assessment Pt came in w/post thighand calf discomfort and L LB discomofrt w/flex, L rot and SB. Improved all with maual and had no resting discomfort. Pt has impaired rolling pattern and w/PNF demonstrated improved rolling pattern. Physical Therapy Plan Frequency and Duration Frequency of Treatment 1-2x/wk Duration of treatment (weeks) 10 Plan of Care Start Date 06/20/22 Plan of Care End Date 08/29/22 Next Visit Focus/Plan Next Note Type Treatment Note Next Visit Plan Dec LE symptoms w/manual & PNF for connection
--- NOTE | 2022-07-12 13:20 | PT.OTN ---
Current Diagnoses Radiculopathy, site unspecified (07/12/22) Low back pain, unspecified (07/12/22) Physical Therapy Treatment Note PT-OP-A Visit Information Start: 03/12/22 17:44 Freq: Status: Active Protocol: Document 07/12/22 10:41 [facility] (Rec: 07/12/22 11:28 [facility] [id number]) Out-Patient Physical Therapy Visit Information Visit Information Visit Type Treatment Note Visit Start Time 10:37 Visit Stop Time 11:20 Total Visit Minutes 43 Visit Number 15 Number of SHROUD LINE TIER Visits 0 PT-OP-B Current Condition Start: 03/12/22 17:44 Freq: Status: Active Protocol: Document 03/13/22 15:21 [facility] (Rec: 03/13/22 16:05 [facility] [id number]) Current Condition History of Current Condition Onset Date September Current Complaints L med knee pain, L back to post leg History of Current Condition In September, L knee started bothering her while running. Had to wait til January to see MD . When got in with MD, she started to have L SI/ buttock pain and it goes down post thigh and into calf. She has some mild tingling in calf and and dorsal aspect of toes 2-4 . Pain is pretty much every day. It bothers her when bending, squatting, sitting on soft surfaces, running. She can walk without pain. Treatment Goals Patient/Caregiver Goals be able to go downhill w/o pain, be able to return to running (5-7 miles a day on sat/sun) PT-OP-C Subjective Start: 03/12/22 17:44 Freq: Status: Active Protocol: Document 07/12/22 10:41 [facility] (Rec: 07/12/22 11:28 [facility] [id number]) OP-PT Subjective Patient Comments Patient Comments Pt reports she was really sore after last session into the next day. Better after that. She is less sore when she wakes up. She has been feeling minimal pain since Saturday/ Saturday. Has been stretching at computer more. PT-OP-D Balance Start: 03/12/22 17:44 Freq: Status: Active Protocol: Document 03/13/22 15:21 [facility] (Rec: 03/13/22 16:05 [facility] [id number]) Balance Tests Single Limb Standing Single Limb- Right >30 sec Single Limb- Left >30 sec PT-OP-F Manual Assessment Start: 03/12/22 17:44 Freq: Status: Active Protocol: Document 03/13/22 15:21 [facility] (Rec: 03/13/22 16:05 [facility] [id number]) Manual Assessments Soft Tissue Assessment Soft Tissue Mobility Assessment tightness L ITB, HS, calf, adductors,glutes L jt line med tenderness Joint Mobility Assessment Joint Mobility Assessment minor elvation of L pelvis. equal greater trochanter PT-OP-G Mobility & Gait Start: 03/12/22 17:44 Freq: Status: Active Protocol: Document 03/13/22 15:21 [facility] (Rec: 03/13/22 16:05 [facility] [id number]) OP Gait Assessment Comments Gait Comments dec push off B, ext at lumbar spine PT-OP-J Posture/Palpation/Skin Start: 03/12/22 17:44 Freq: Status: Active Protocol: Document 03/13/22 15:21 [facility] (Rec: 03/13/22 16:05 [facility] [id number]) Posture Evaluation Martínez Postural Classification System [facility] Postural Classifications Posterior/Posterior Vertebral Compression Test 2 Lumbar Protective Mechanism Left AP 3 Lumbar Protective Mechanism Right AP 1 Lumbar Protective Mechanism Left PA 3 Lumbar Protective Mechanism Right PA 3 PT-OP-K Range of Motion Start: 03/12/22 17:44 Freq: Status: Active Protocol: Document 03/13/22 15:21 [facility] (Rec: 03/13/22 16:05 [facility] [id number]) Hip Goniometric Range of Motion Hip Right Active Flexion w/Knee Flexed 119 Abduction 30 Left Active Flexion w/Knee Flexed 120 Abduction 29 Comments discomfort w/flex PT-OP-L Special Tests Start: 03/12/22 17:44 Freq: Status: Active Protocol: Document 03/13/22 15:21 [facility] (Rec: 03/13/22 16:05 [facility] [id number]) Special Tests Hip Special Tests Slump Test Results positive L SLR Test Results positive B for pain on L side Sushant Test Results positive B for tightness RF, iliacus & TFL L>R obers Test Results positive L Knee Special Tests Joshua Test Test Results neg ligamentous Test Results neg L Thessaly Test 20 Degrees Test Results neg L PT-OP-M Strength Start: 03/12/22 17:44 Freq: Status: Active Protocol: Document 06/20/22 13:01 [facility] (Rec: 06/20/22 14:36 [facility] [id number]) Hip Strength Hip Manual Muscle Testing Right Flexion (L2) 5 Normal Extension (S1) 4 Good Abduction 5 Normal Adduction 4+ Good+ External Rotation 5 Normal Internal Rotation 5 Normal Left Flexion (L2) 4 Good Extension (S1) 3+ Fair+ Abduction 4- Good- Adduction 4+ Good+ External Rotation 4+ Good+ Internal Rotation 5 Normal Comments positive L SLUMP; pain w/ER, abd Knee Strength Knee Manual Muscle Testing Right Flexion (S2) 5 Normal Extension (L3) 5 Normal Left Flexion (S2) 4 Good Extension (L3) 5 Normal Comments pain w/flex Ankle/Foot Strength Ankle and Foot Manual Muscle Testing Right Dorsiflexion (L4) 5 Normal Plantarflexion (S1) 5 Normal Left Dorsiflexion (L4) 5 Normal Plantarflexion (S1) 5 Normal Comments 20 heel raises B; pain in L buttocks w/L PF & tingling inc PT-OP-Q Treatments Start: 03/12/22 17:44 Freq: Status: Active Protocol: Document 07/12/22 10:41 [facility] (Rec: 07/12/22 11:28 [facility] [id number]) Manual Therapy Treatment Soft Tissue Mobilization lumbar Comments L MFR superficial lumbar region sit w/flex FM; L strumming/rolling to paraspinalsi n sit and prone Joint Mobilizations lumbar Comments gapping L4-5, L5-S1 FM cat/cow Self-Care/Home Management Treatment Education Other Education edu to ice after therapy. Edu to cont strethes and exercises . PT-OP-T Assessment and Plan Start: 03/12/22 17:44 Freq: Status: Active Protocol: Document 07/12/22 10:41 [facility] (Rec: 07/12/22 11:28 [facility] [id number]) Physical Therapy Assessment Goals sitting Assisted Goal (LTG) pt will be able to sit on any surface w/o inc pain 04/20/22: progressing: harder surfaces ok mroe tolerance, softer surfaces couch ok for 30 min before pain. Finds if sit edge much better. 05/30/22: better, able to sit deeper in seat at meeting but limited time due to thought might start hurting so unsure how long would have lasted before need to shift position. 06/20-able to sit no longer than 45 min w/shifting and stretching needed during this time. LTG Duration 08/23 VCT Assisted Goal (LTG) Pt will score at least 4/5 to show improved postural stabiltiy. LTG Duration 08/22/22 strengt Short Term Goal (STG) Pt will be indep w/HEP STG Duration advancing as able Assisted Goal (LTG) Pt will score at least 4/5 on LPM and 5/5 on BLE MMT to show improved stabiltiy to dec pain in LE and knee 06/20-limited d/t pain today LTG Duration 08/29 activities Short Term Goal (STG) Pt will be able to walk downhill during hikes w/o pain 05/30/22 hasn't hiked so will try over the weekend. 06/20-can uphill on treadmill but hasn't done any downhill STG Duration 07/22 Assisted Goal (LTG) Pt will be able to return to running on the weekends w/o hip, leg or knee pain. 05/30/22: progressing: able to light jog 2 min at time now. 06/20-thinks running may have inc pain LTG Duration 08/29 Assessment Summary Assessment Pt started w/symptoms in calf and tingling in L foot w/flex and pain in L glute/thigh/calf w/R SB but this dec after manual therapy to no pain or tingling with either movement. She had greater ease of donning shoes after treatment today. Physical Therapy Plan Frequency and Duration Frequency of Treatment 1-2x/wk Duration of treatment (weeks) 10 Plan of Care Start Date 06/20/22 Plan of Care End Date 08/29/22 Next Visit Focus/Plan Next Note Type Treatment Note Next Visit Plan Dec LE symptoms w/manual & PNF for connection
--- NOTE | 2022-07-25 18:14 | PT.OTN ---
Current Diagnoses Radiculopathy, site unspecified (07/25/22) Low back pain, unspecified (07/25/22) Physical Therapy Treatment Note PT-OP-A Visit Information Start: 03/12/22 17:44 Freq: Status: Active Protocol: Document 07/25/22 13:49 [facility] (Rec: 07/25/22 15:21 [facility] [id number]) Out-Patient Physical Therapy Visit Information Visit Information Visit Type Progress Note Visit Start Time 13:46 Visit Stop Time 14:31 Total Visit Minutes 45 Visit Number 16 Number of DRY GOODS INSPECTOR Visits 0 PT-OP-B Current Condition Start: 03/12/22 17:44 Freq: Status: Active Protocol: Document 03/13/22 15:21 [facility] (Rec: 03/13/22 16:05 [facility] [id number]) Current Condition History of Current Condition Onset Date September Current Complaints L med knee pain, L back to post leg History of Current Condition In September, L knee started bothering her while running. Had to wait til January to see MD . When got in with MD, she started to have L SI/ buttock pain and it goes down post thigh and into calf. She has some mild tingling in calf and and dorsal aspect of toes 2-4 . Pain is pretty much every day. It bothers her when bending, squatting, sitting on soft surfaces, running. She can walk without pain. Treatment Goals Patient/Caregiver Goals be able to go downhill w/o pain, be able to return to running (5-7 miles a day on sat/sun) PT-OP-C Subjective Start: 03/12/22 17:44 Freq: Status: Active Protocol: Document 07/25/22 13:49 [facility] (Rec: 07/25/22 15:21 [facility] [id number]) OP-PT Subjective Patient Comments Patient Comments Pt reports she feels like she is making great progress w/ last few sessions and no longer has sharp pain but still achey pain and is limited in how long she can be in sitting or standing and has difficulty w/bending over and lifting her leg for higher steps still.S he reports she did hike and do a walk the past 2 days and that has increased her achiness. She is scared to try running d/t wondering if that caused her pain before. She would like to cont PT to completely rid herself of her pain Patient Reported Progress Improving PT-OP-D Balance Start: 03/12/22 17:44 Freq: Status: Active Protocol: Document 03/13/22 15:21 [facility] (Rec: 03/13/22 16:05 [facility] [id number]) Balance Tests Single Limb Standing Single Limb- Right >30 sec Single Limb- Left >30 sec PT-OP-F Manual Assessment Start: 03/12/22 17:44 Freq: Status: Active Protocol: Document 03/13/22 15:21 [facility] (Rec: 03/13/22 16:05 [facility] [id number]) Manual Assessments Soft Tissue Assessment Soft Tissue Mobility Assessment tightness L ITB, HS, calf, adductors,glutes L jt line med tenderness Joint Mobility Assessment Joint Mobility Assessment minor elvation of L pelvis. equal greater trochanter PT-OP-G Mobility & Gait Start: 03/12/22 17:44 Freq: Status: Active Protocol: Document 03/13/22 15:21 [facility] (Rec: 03/13/22 16:05 [facility] [id number]) OP Gait Assessment Comments Gait Comments dec push off B, ext at lumbar spine PT-OP-J Posture/Palpation/Skin Start: 03/12/22 17:44 Freq: Status: Active Protocol: Document 07/25/22 13:49 [facility] (Rec: 07/25/22 15:21 [facility] [id number]) Posture Evaluation [facility] Postural Classification System Vertebral Compression Test 3 Lumbar Protective Mechanism Left AP 3 Lumbar Protective Mechanism Right AP 4 Lumbar Protective Mechanism Left PA 3 Lumbar Protective Mechanism Right PA 3 PT-OP-K Range of Motion Start: 03/12/22 17:44 Freq: Status: Active Protocol: Document 03/13/22 15:21 [facility] (Rec: 03/13/22 16:05 [facility] [id number]) Hip Goniometric Range of Motion Hip Right Active Flexion w/Knee Flexed 119 Abduction 30 Left Active Flexion w/Knee Flexed 120 Abduction 29 Comments discomfort w/flex PT-OP-L Special Tests Start: 03/12/22 17:44 Freq: Status: Active Protocol: Document 03/13/22 15:21 [facility] (Rec: 03/13/22 16:05 [facility] [id number]) Special Tests Hip Special Tests Slump Test Results positive L SLR Test Results positive B for pain on L side Sushant Test Results positive B for tightness RF, iliacus & TFL L>R obers Test Results positive L Knee Special Tests oJshua Test Test Results neg ligamentous Test Results neg L Thessaly Test 20 Degrees Test Results neg L PT-OP-M Strength Start: 03/12/22 17:44 Freq: Status: Active Protocol: Document 07/25/22 13:49 [facility] (Rec: 07/25/22 15:21 [facility] [id number]) Hip Strength Hip Manual Muscle Testing Right Flexion (L2) 5 Normal Extension (S1) 4+ Good+ Abduction 5 Normal Adduction 5 Normal External Rotation 5 Normal Internal Rotation 5 Normal Left Flexion (L2) 4+ Good+ Extension (S1) 4+ Good+ Abduction 4 Good Adduction 5 Normal External Rotation 5 Normal Internal Rotation 5 Normal Comments pain abd & ext Knee Strength Knee Manual Muscle Testing Right Flexion (S2) 5 Normal Extension (L3) 5 Normal Left Flexion (S2) 4+ Good+ Extension (L3) 5 Normal Comments mild pain w/flex Ankle/Foot Strength Ankle and Foot Manual Muscle Testing Right Dorsiflexion (L4) 5 Normal Plantarflexion (S1) 5 Normal Left Dorsiflexion (L4) 5 Normal Plantarflexion (S1) 5 Normal Comments 20 heel raises B PT-OP-Q Treatments Start: 03/12/22 17:44 Freq: Status: Active Protocol: Document 07/25/22 13:49 [facility] (Rec: 07/25/22 15:21 [facility] [id number]) Therapeutic Exercises Sitting Exercises n glide Side left Reps/Minutes 5 min Standing Exercises step up Standing Exercise Name 12 in Side left Reps/Minutes 10 Comments focus on wt shift Therapeutic Activity Therapeutic Activity posture Reps/Minutes 23 min Comments 1. adjusted unsupporting sitting posture working on inc wt bearing into pelvic floor 2. adjusted standign posture working on ribcage position over pelvis 3. manual facilitation of wt acceptance into LLE in seated on edge of bed and in standing at step 4. worked on seated hip hinge back to mimic position needed for row machine Manual Therapy Treatment Joint Mobilizations innominate Joint L ext FM Comments w/manual faciliation at end range PT-OP-T Assessment and Plan Start: 03/12/22 17:44 Freq: Status: Active Protocol: Document 07/25/22 13:49 [facility] (Rec: 07/25/22 15:21 [facility] [id number]) Physical Therapy Assessment Goals sitting Detention Goal (LTG) pt will be able to sit on any surface w/o inc pain 04/20/22: progressing: harder surfaces ok mroe tolerance, softer surfaces couch ok for 30 min before pain. Finds if sit edge much better. 05/30/22: better, able to sit deeper in seat at meeting but limited time due to thought might start hurting so unsure how long would have lasted before need to shift position. 06/20-able to sit no longer than 45 min w/shifting and stretching needed during this time. 07/25-can sit 1 hr LTG Duration 08/23 VCT Detention Goal (LTG) Pt will score at least 4/5 to show improved postural stabiltiy. 07/25-improved to 3 but can improve to 5 when given min cues for posture LTG Duration 08/22/22 strengt Short Term Goal (STG) Pt will be indep w/HEP STG Duration advancing as able Detention Goal (LTG) Pt will score at least 4/5 on LPM and 5/5 on BLE MMT to show improved stabiltiy to dec pain in LE and knee 06/20-limited d/t pain today 07/25-muich improved LE MMT and LPM LTG Duration 08/29 activities Short Term Goal (STG) Pt will be able to walk downhill during hikes w/o pain 05/30/22 hasn't hiked so will try over the weekend. 06/20-can uphill on treadmill but hasn't done any downhill STG Duration achieved Detention Goal (LTG) Pt will be able to return to running on the weekends w/o hip, leg or knee pain. 05/30/22: progressing: able to light jog 2 min at time now. 06/20-thinks running may have inc pain 1/4has not tried again d/t concern for pain. LTG Duration 08/29 Assessment Summary Assessment Pt has had symptoms dec signficiantly since flare up and bending over has gotten better per pt. She is slightly worse since hiking the past 2 days and having difficulty w/ bend over like to tie shoe. Shooting pain in leg gone but still tight. Is still limited in static positions and can sit no greater than 1 hr and no longer than 45 min standing at desk. She has made a lot of progress w/much decrease in pain since her flare up and is hoping to continue to progress to more active lifestyle and cont to dec pain w/ADLs (donning/doffing shoes /socks) and work requirements like standing at her desk and would benefit from cont PT. Physical Therapy Plan Frequency and Duration Frequency of Treatment 1-2x/wk Duration of treatment (weeks) 10 Plan of Care Start Date 06/20/22 Plan of Care End Date 08/29/22 Therapeutic Interventions Therapeutic Interventions Aquatic Therapy,Balance Training,Gait Training,Home Exercise Program,Joint Mobilizations,Manual Therapy, Neuromuscular Re-education, Patient/Caregiver Education, Self-Care/Home Management,Soft Tissue Mobilization,Taping, Therapeutic Activities, Therapeutic Exercises Modalities Cold Pack/Ice Massage,Electric Stimulation,Hot Packs, Infrared Therapy,Traction- Mechanical,Ultrasound Next Visit Focus/Plan Next Note Type Treatment Note Next Visit Plan Dec LE symptoms w/manual & PNF for connection
--- NOTE | 2022-08-08 08:51 | PT.OPDS ---
Current Diagnoses Radiculopathy, site unspecified (07/25/22) Low back pain, unspecified (07/25/22) Visit Care Team Role Provider Type Kelly Pabon MD Attending Provider Physician Primary Care Provider Referring Provider Specialty: [facility] Address: [address] [place] [address], [place], [address] Email: [email or web address] Visit Number Visit Number 16 Discharge Summary PT-OP-B Current Condition Start: 03/12/22 17:44 Freq: Status: Active Protocol: Document 03/13/22 15:21 [facility] (Rec: 03/13/22 16:05 [facility] [id number]) Current Condition History of Current Condition Onset Date September Current Complaints L med knee pain, L back to post leg History of Current Condition In September, L knee started bothering her while running. Had to wait til January to see MD . When got in with MD, she started to have L SI/ buttock pain and it goes down post thigh and into calf. She has some mild tingling in calf and and dorsal aspect of toes 2-4 . Pain is pretty much every day. It bothers her when bending, squatting, sitting on soft surfaces, running. She can walk without pain. Treatment Goals Patient/Caregiver Goals be able to go downhill w/o pain, be able to return to running (5-7 miles a day on sat/sun) PT-OP-C Subjective Start: 03/12/22 17:44 Freq: Status: Active Protocol: Document 07/25/22 13:49 [facility] (Rec: 07/25/22 15:21 [facility] [id number]) OP-PT Subjective Patient Comments Patient Comments Pt reports she feels like she is making great progress w/ last few sessions and no longer has sharp pain but still achey pain and is limited in how long she can be in sitting or standing and has difficulty w/bending over and lifting her leg for higher steps still.S he reports she did hike and do a walk the past 2 days and that has increased her achiness. She is scared to try running d/t wondering if that caused her pain before. She would like to cont PT to completely rid herself of her pain Patient Reported Progress Improving PT-OP-D Balance Start: 03/12/22 17:44 Freq: Status: Active Protocol: Document 03/13/22 15:21 [facility] (Rec: 03/13/22 16:05 [facility] [id number]) Balance Tests Single Limb Standing Single Limb- Right >30 sec Single Limb- Left >30 sec PT-OP-F Manual Assessment Start: 03/12/22 17:44 Freq: Status: Active Protocol: Document 03/13/22 15:21 [facility] (Rec: 03/13/22 16:05 [facility] [id number]) Manual Assessments Soft Tissue Assessment Soft Tissue Mobility Assessment tightness L ITB, HS, calf, adductors,glutes L jt line med tenderness Joint Mobility Assessment Joint Mobility Assessment minor elvation of L pelvis. equal greater trochanter PT-OP-G Mobility & Gait Start: 03/12/22 17:44 Freq: Status: Active Protocol: Document 03/13/22 15:21 [facility] (Rec: 03/13/22 16:05 [facility] [id number]) OP Gait Assessment Comments Gait Comments dec push off B, ext at lumbar spine PT-OP-J Posture/Palpation/Skin Start: 03/12/22 17:44 Freq: Status: Active Protocol: Document 07/25/22 13:49 [facility] (Rec: 07/25/22 15:21 [facility] [id number]) Posture Evaluation [facility] Postural Classification System Vertebral Compression Test 3 Lumbar Protective Mechanism Left AP 3 Lumbar Protective Mechanism Right AP 4 Lumbar Protective Mechanism Left PA 3 Lumbar Protective Mechanism Right PA 3 PT-OP-K Range of Motion Start: 03/12/22 17:44 Freq: Status: Active Protocol: Document 03/13/22 15:21 [facility] (Rec: 03/13/22 16:05 [facility] [id number]) Hip Goniometric Range of Motion Hip Right Active Flexion w/Knee Flexed 119 Abduction 30 Left Active Flexion w/Knee Flexed 120 Abduction 29 Comments discomfort w/flex PT-OP-L Special Tests Start: 03/12/22 17:44 Freq: Status: Active Protocol: Document 03/13/22 15:21 [facility] (Rec: 03/13/22 16:05 [facility] [id number]) Special Tests Hip Special Tests Slump Test Results positive L SLR Test Results positive B for pain on L side Sushant Test Results positive B for tightness RF, iliacus & TFL L>R obers Test Results positive L Knee Special Tests Joshua Test Test Results neg ligamentous Test Results neg L Thessaly Test 20 Degrees Test Results neg L PT-OP-M Strength Start: 03/12/22 17:44 Freq: Status: Active Protocol: Document 07/25/22 13:49 [facility] (Rec: 07/25/22 15:21 [facility] [id number]) Hip Strength Hip Manual Muscle Testing Right Flexion (L2) 5 Normal Extension (S1) 4+ Good+ Abduction 5 Normal Adduction 5 Normal External Rotation 5 Normal Internal Rotation 5 Normal Left Flexion (L2) 4+ Good+ Extension (S1) 4+ Good+ Abduction 4 Good Adduction 5 Normal External Rotation 5 Normal Internal Rotation 5 Normal Comments pain abd & ext Knee Strength Knee Manual Muscle Testing Right Flexion (S2) 5 Normal Extension (L3) 5 Normal Left Flexion (S2) 4+ Good+ Extension (L3) 5 Normal Comments mild pain w/flex Ankle/Foot Strength Ankle and Foot Manual Muscle Testing Right Dorsiflexion (L4) 5 Normal Plantarflexion (S1) 5 Normal Left Dorsiflexion (L4) 5 Normal Plantarflexion (S1) 5 Normal Comments 20 heel raises B PT-OP-T Assessment and Plan Start: 03/12/22 17:44 Freq: Status: Active Protocol: Document 08/08/22 08:50 [facility] (Rec: 10/02/22 08:51 [facility] [id number]) Physical Therapy Assessment Goals sitting Mcfp Goal (LTG) pt will be able to sit on any surface w/o inc pain 04/20/22: progressing: harder surfaces ok mroe tolerance, softer surfaces couch ok for 30 min before pain. Finds if sit edge much better. 05/30/22: better, able to sit deeper in seat at meeting but limited time due to thought might start hurting so unsure how long would have lasted before need to shift position. 06/20-able to sit no longer than 45 min w/shifting and stretching needed during this time. 1/4-can sit 1 hr LTG Duration 08/23 VCT Mcfp Goal (LTG) Pt will score at least 4/5 to show improved postural stabiltiy. 1/4-improved to 3 but can improve to 5 when given min cues for posture LTG Duration 08/22/22 strengt Short Term Goal (STG) Pt will be indep w/HEP STG Duration advancing as able Mcfp Goal (LTG) Pt will score at least 4/5 on LPM and 5/5 on BLE MMT to show improved stabiltiy to dec pain in LE and knee 06/20-limited d/t pain today /-muich improved LE MMT and LPM LTG Duration 08/29 activities Short Term Goal (STG) Pt will be able to walk downhill during hikes w/o pain 05/30/22 hasn't hiked so will try over the weekend. 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 05/30/22: progressing: able to light jog 2 min at time now. 06/20-thinks running may have inc pain 1/4has not tried again d/t concern for pain. LTG Duration 08/29 Assessment Summary Assessment Pt has had symptoms dec signficiantly since flare up and bending over has gotten better per pt. She is slightly worse since hiking the past 2 days and having difficulty w/ bend over like to tie shoe. Shooting pain in leg gone but still tight. Is still limited in static positions and can sit no greater than 1 hr and no longer than 45 min standing at desk. She has made a lot of progress w/much decrease in pain since her flare up and is hoping to continue to progress to more active lifestyle and cont to dec pain w/ADLs (donning/doffing shoes /socks) and work requirements like standing at her desk and would benefit from cont PT but unfortunately insurance denied further PT. At this time DC d/t insurance denial. Pt will work on HEP to manage pain. Physical Therapy Plan Discharge Physical Therapy Discharge Comments insurance denial
== END 2022-10-03 10:13 | disposition home or self-care (01) ==
LOC: PHYS 13:45
PROVIDERS: PCP Family Medicine; Referring Provider Family Medicine; Visit Provider Family Medicine
DX: M54.50 Low back pain, unspecified (principal); M54.10 Radiculopathy, site unspecified
CPT/HCPCS: 97110; 97112; 97140; 97162; 97530; 97535

== ENCOUNTER → 2022-10-17 15:01 | Outpatient (CLI) | payer OTHER, SELFPAY ==
--- NOTE | 2022-10-17 15:02 | DI.RAD.S_ITS ---
PROCEDURE: XR LUMBAR SPINE 2-3V INDICATIONS: low back pain TECHNIQUE: 3 views of the lumbar spine were acquired. COMPARISON: None. FINDINGS: Bones: 5 cul-fvy-xxmdqcu vertebrae are present. 2 mm grade 1 anterolisthesis of L4 on L5. Minimal degenerative endplate changes are seen that are most prominent at the L5-S1 level. Moderate facet hypertrophy is most notable at the L4-5 and L5-S1 levels. No vertebral body compression fractures. No suspicious bony lesions. Soft tissues: Overlying bowel gas pattern is normal. No suspicious soft tissue calcifications. IMPRESSION: Baxa-dp-ylsyfatr spondylosis. Lumbar spine MRI could be performed for further evaluation if indicated clinically. Approved by: Beck Tavarez M.D. on 10/17/2022 at 16:00
== END ==
PROVIDERS: PCP Family Medicine; Referring Provider Family Medicine; Visit Provider Family Medicine
DX: M47.816 Spondylosis without myelopathy or radiculopathy, lumbar region (principal); M47.817 Spondylosis without myelopathy or radiculopathy, lumbosacral region; M54.50 Low back pain, unspecified
CPT/HCPCS: 72100

== ENCOUNTER → 2023-01-04 08:45 | Outpatient (CLI) | payer OTHER, SELFPAY ==
--- NOTE | 2023-01-04 08:46 | DI.MRI.S_ITS ---
PROCEDURE: MR LUMBAR SPINE WO CON INDICATIONS: LOW BACK PAIN LEFT LOWER EXTREMITY RADICULOPATHY TECHNIQUE: Noncontrast sagittal T1 spin echo and T2 fast echo, sagittal STIR, and T2 fast spin echo through the lumbar spine. In cases with scoliosis, additional coronal T2 fast spin echo may be performed. COMPARISON: [facility], CR, XR LUMBAR SPINE 2-3V, 10/17/2022, 15:07. FINDINGS: Image quality: Excellent. Alignment and Curvature: There is normal bony alignment. Bone Marrow: Marrow is of normal overall signal. Scattered foci are seen, which are hyperintense on T1-weighted and T2-weighted imaging, which are most consistent with benign vertebral body hemangiomas. No acute vertebral body compression fractures. Spinal Cord: Conus medullaris terminates at the T12-L1 level. Visualized cord demonstrates normal signal and size. Paraspinous Soft Tissues: No paravertebral masses. 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 T12-L1: Normal appearance. L1-L2: Normal appearance. L2-L3: The disc height and disk signal are well-preserved. Mild disc bulge is seen, which is slightly eccentric to the left. There is mild left-sided and no significant right-sided facet hypertrophy. There is mild left-sided and no right-sided neural foraminal narrowing. No significant central canal narrowing is seen. L3-L4: The disc height is well-preserved. Loss of disc signal is seen at this level. Mild to moderate disc bulge is seen. There is a superimposed central disc protrusion. Moderate facet joint hypertrophy is seen. There is uumx-tu-tmwnqicn right-sided and mild left-sided facet hypertrophy. Moderate central canal narrowing is seen. L4-L5: The disc height is well-preserved. Loss of disc signal is seen at this level. Moderate generalized disc bulge is seen. There is a superimposed central disc protrusion. At least moderate facet hypertrophy is seen. There is at least moderate bilateral neural foraminal narrowing seen, right worse than left. There is a degree of compression seen upon the exiting right L4 nerve root. At least moderate central canal narrowing is seen. L5-S1: The disc height is well-preserved. Loss of disc signal is seen at this level. Moderate generalized disc bulge is seen. There is a superimposed central disc protrusion. Moderate to prominent facet hypertrophy is seen, left worse than right. There is moderate to severe left-sided and at least moderate right-sided neural foraminal narrowing. There is a degree of compression seen upon the exiting nerve roots. Moderate central canal narrowing is seen. IMPRESSION: Multiple levels of lumbar spine degenerative change are seen, which are worst inferiorly. Dictated by: Mark Khoury M.D. on 01/04/2023 at 10:33 Approved by: Mark Khoury M.D. on 01/04/2023 at 10:36
== END ==
PROVIDERS: PCP Family Medicine; Referring Provider Physical Medicine & Rehabilitation; Visit Provider Physical Medicine & Rehabilitation
DX: M47.26 Other spondylosis with radiculopathy, lumbar region (principal); M47.27 Other spondylosis with radiculopathy, lumbosacral region
CPT/HCPCS: 72148

== ENCOUNTER → 2024-03-06 08:16 | Outpatient (CLI) | payer OTHER, SELFPAY ==
[2024-03-06 08:59] LABS: Add Manual Diff / Slide Review NO; Basophils Absolute Auto 100 /uL (0-100); Basophils Percent Auto 1.2 % (0-2); Eosinophils Absolute Auto 200 /uL (0-450); Eosinophils Percent Auto 4.7 % (2-4); Hematocrit 43.2 % (36-46); Hemoglobin 14.6 g/dL (12.0-16.0); Lymphocytes Absolute Auto 1600 /uL (1100-4500); Lymphocytes Percent Auto 37.8 % (25-40); Mean Corpuscular HGB Conc 33.9 % (30-36); Mean Corpuscular Hemoglobin 32.7 PG (26-34); Mean Corpuscular Volume 96.6 fL (80-100); Monocytes Absolute Auto 300 /uL (0-900); Monocytes Percent Auto 7.9 % (3-14); Neutrophils Absolute Auto 2100 /uL (1500-7000); Neutrophils Percent Auto 48.4 % (50-75); Platelet Count 305 X10^3/uL (150-400); Red Blood Cell Count 4.47 X10^6/uL (4.0-5.2); Red Cell Distribution Width 13.4 % (11.6-14.8); White Blood Cell Count 4.3 X10^3/uL (4.5-11.0)
[2024-03-06 09:10] LABS: Cholesterol 243 mg/dL (140-199); Glucose 102 mg/dL (80-110); HDL Cholesterol 95 mg/dL (40-60); LDL Cholesterol Calculated 130 mg/dL (<100); Triglycerides 89 mg/dL (35-150)
== END ==
PROVIDERS: PCP Family Medicine; Referring Provider Family Medicine; Visit Provider Family Medicine
DX: D72.819 Decreased white blood cell count, unspecified (principal); Z13.220 Encounter for screening for lipoid disorders; Z13.1 Encounter for screening for diabetes mellitus
CPT/HCPCS: 36415; 80061; 82947; 85025

== ENCOUNTER → 2024-10-20 14:53 | Outpatient (CLI) | payer OTHER, SELFPAY ==
--- NOTE | 2024-10-20 14:54 | DI.RAD.S_ITS ---
PROCEDURE: XR KNEE LT 3V INDICATIONS: LEFT KNEE PAIN TECHNIQUE: 3 views of the knee were acquired. COMPARISON: None. FINDINGS: Bones: No fractures or dislocations. 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 No significant patellar subluxation. No suspicious bony lesions. Soft tissues: Small left suprapatellar joint effusion. No suspicious soft tissue calcifications. 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 No fracture or dislocation. Small suprapatellar joint effusion. Dictated by: Rubio Benson M.D. on 10/20/2024 at 15:24 Approved by: Rubio Benson M.D. on 10/20/2024 at 15:25
== END ==
PROVIDERS: PCP Family Medicine; Referring Provider Physical Medicine & Rehabilitation; Visit Provider Physical Medicine & Rehabilitation
DX: M17.12 Unilateral primary osteoarthritis, left knee (principal); M25.562 Pain in left knee; M25.462 Effusion, left knee
CPT/HCPCS: 73562